=== PATIENT | female | born 1995 | race Caucasian/White ===

== ENCOUNTER 2020-03-12 17:09 | Emergency (ER) | payer OTHER ==
[2020-03-12] MEDS ORDERED: SODIUM CHLORIDE 0.9% 1,000 ML IV STA (18:23)
--- NOTE | 2020-03-12 18:33 | ED ---
General Adult HPI - General Chief complaint: Vaginal Bleeding Stated complaint: Approx 7 wks preg - vaginal bleeding Time Seen by Provider: 03/12/20 17:24 Source: patient, RN notes reviewed Mode of arrival: ambulatory Limitations: no limitations - History of Present Illness Initial comments: 24-year-old female currently 6-7 weeks with an LMP the last week of December presents to the emergency room for vaginal bleeding. Patient noticed this 2 hours ago. States when she wiped there was blood on the toilet paper. Patient reports she has a panty liner on [place] there is no blood on it. Patient denies any pain. Patient has not had an ultrasound for this . Patient does have her first [facility] appointment tomorrow.Patient has no other complaints at this time including shortness of breath, chest pain, abdominal pain, nausea or vomiting, headache, or visual changes. - Related Data Home Medications Medication Instructions Recorded Confirmed Metoprolol Succinate (ER) [Toprol 50 mg PO HS 03/12/20 03/12/20 Xl] Metoprolol Succinate [Toprol XL] 25 mg PO HS 03/12/20 03/12/20 Nitrofurantoin Monohyd/M-Cryst 100 mg PO BID 03/12/20 03/12/20 [Macrobid] Previous Rx's Medication Instructions Recorded Cephalexin [Keflex] 500 mg PO BID 10 Days #20 cap 03/12/20 Allergies Allergy/AdvReac Type Severity Reaction Status Date / Time No Known Allergies Allergy Verified 03/12/20 18:33 Review of Systems ROS Statement: Those systems with pertinent positive or pertinent negative responses have been documented in the HPI. ROS Other: All systems not noted in ROS Statement are negative. Past Medical History Additional Past Medical History / Comment(s): long QT syndrome History of Any Multi-Drug Resistant Organisms: None Reported Past Surgical History: AICD Past Psychological History: No Psychological Hx Reported Smoking Status: Never smoker Past Alcohol Use History: None Reported Past Drug Use History: Marijuana General Exam Limitations: no limitations General appearance: alert, in no apparent distress Head exam: Present: atraumatic, normocephalic, normal inspection Eye exam: Present: normal appearance, PERRL, EOMI. Absent: scleral icterus, conjunctival injection, periorbital swelling ENT exam: Present: normal exam, mucous membranes moist Neck exam: Present: normal inspection. Absent: tenderness, meningismus, lymphadenopathy Respiratory exam: Present: normal lung sounds bilaterally. Absent: respiratory distress, wheezes, rales, rhonchi, stridor Cardiovascular Exam: Present: regular rate, normal rhythm, normal heart sounds. Absent: systolic murmur, diastolic murmur, rubs, gallop, clicks GI/Abdominal exam: Present: soft, normal bowel sounds. Absent: distended, tenderness, guarding, rebound, rigid Course Vital Signs 03/12/20 17:12 Temperature 98.0 F Pulse Rate 86 Respiratory 18 Rate Blood Pressure 128/77 O2 Sat by Pulse 100 Oximetry Medical Decision Making - Medical Decision Making Vitals are stable. Patient denies any heavy bleeding. Physical exam unremarkable. CBC shows a stable hemoglobin of 14.1. CMP unremarkable. Patient does have evidence of a urinary tract infection will be treated accordingly. Ultrasound shows no evidence of a gestational sac or suspicious adnexal mass. HCG Quant is 7.5. Patient is O-, was given RhoGAM. I discussed the patient that at this time is to repeat her hCG in 2 days. At this time I cannot rule out early versus miscarriage versus ectopic . However I do not have a high suspicion for ectopic as patient has no abdominal pain whatsoever. She has an appointment with her [facility] PRESSMAN tomorrow and she will tell her stay in this emergency room. Patient denies any severe abdominal pain I recommend she return immediately to the emergency room. She'll return if she has any other worsening symptoms. - Lab Data Result diagrams: 03/12/20 18:14 03/12/20 18:14 Lab Results 03/12/20 03/12/20 03/12/20 Range/Units 18:14 18:14 18:14 WBC 7.3 (3.8-10.6) k/uL RBC 5.02 (3.80-5.40) m/uL Hgb 14.1 (11.4-16.0) gm/dL Hct 42.2 (34.0-46.0) % MCV 84.1 (80.0-100.0) fL MCH 28.1 (25.0-35.0) pg MCHC 33.4 (31.0-37.0) g/dL RDW 12.3 (11.5-15.5) % Plt Count 316 (150-450) k/uL MPV 6.7 Neutrophils % 67 % Lymphocytes % 24 % Monocytes % 5 % Eosinophils % 1 % Basophils % 0 % Neutrophils # 4.9 (1.3-7.7) k/uL Lymphocytes # 1.7 (1.0-4.8) k/uL Monocytes # 0.4 (0-1.0) k/uL Eosinophils # 0.1 (0-0.7) k/uL Basophils # 0.0 (0-0.2) k/uL Sodium (137-145) mmol/L Potassium (3.5-5.1) mmol/L Chloride (98-107) mmol/L Carbon Dioxide (22-30) mmol/L Anion Gap mmol/L BUN (7-17) mg/dL Creatinine (0.52-1.04) mg/dL Est GFR (CKD-EPI)AfAm (>60 ml/min/1.73 sqM) Est GFR (CKD-EPI)NonAf (>60 ml/min/1.73 sqM) Glucose (74-99) mg/dL Calcium (8.4-10.2) mg/dL Total Bilirubin (0.2-1.3) mg/dL AST (14-36) U/L ALT (4-34) U/L Alkaline Phosphatase (38-126) U/L Total Protein (6.3-8.2) g/dL Albumin (3.5-5.0) g/dL HCG, Quant mIU/mL Urine Color Yellow Urine Appearance Clear (Clear) Urine pH 5.5 (5.0-8.0) Ur Specific [place] 1.028 (1.001-1.035) Urine Protein Trace H (Negative) Urine Glucose (UA) Negative (Negative) Urine Ketones Negative (Negative) Urine Blood Moderate H (Negative) Urine Nitrite Negative (Negative) Urine Bilirubin Negative (Negative) Urine Urobilinogen <2.0 (<2.0) mg/dL Ur Leukocyte Esterase Moderate H (Negative) Urine RBC 4 (0-5) /hpf Urine WBC 21 H (0-5) /hpf Ur Squamous Epith Cells 1 (0-4) /hpf Urine Mucus Rare H (None) /hpf Urine HCG, Qual Detected (Not Detectd) Blood Type Blood Type Recheck Bld Type Recheck Status Antibody Screen 11/12/20 11/12/20 Range/Units 18:14 18:15 WBC (3.8-10.6) k/uL RBC (3.80-5.40) m/uL Hgb (11.4-16.0) gm/dL Hct (34.0-46.0) % MCV (80.0-100.0) fL MCH (25.0-35.0) pg MCHC (31.0-37.0) g/dL RDW (11.5-15.5) % Plt Count (150-450) k/uL MPV Neutrophils % % Lymphocytes % % Monocytes % % Eosinophils % % Basophils % % Neutrophils # (1.3-7.7) k/uL Lymphocytes # (1.0-4.8) k/uL Monocytes # (0-1.0) k/uL Eosinophils # (0-0.7) k/uL Basophils # (0-0.2) k/uL Sodium 139 (137-145) mmol/L Potassium 3.9 (3.5-5.1) mmol/L Chloride 105 (98-107) mmol/L Carbon Dioxide 26 (22-30) mmol/L Anion Gap 8 mmol/L BUN 12 (7-17) mg/dL Creatinine 0.77 (0.52-1.04) mg/dL Est GFR (CKD-EPI)AfAm >90 (>60 ml/min/1.73 sqM) Est GFR (CKD-EPI)NonAf >90 (>60 ml/min/1.73 sqM) Glucose 85 (74-99) mg/dL Calcium 9.6 (8.4-10.2) mg/dL Total Bilirubin 1.2 (0.2-1.3) mg/dL AST 28 (14-36) U/L ALT 18 (4-34) U/L Alkaline Phosphatase 57 (38-126) U/L Total Protein 7.8 (6.3-8.2) g/dL Albumin 4.9 (3.5-5.0) g/dL HCG, Quant 7.5 mIU/mL Urine Color Urine Appearance (Clear) Urine pH (5.0-8.0) Ur Specific [place] (1.001-1.035) Urine Protein (Negative) Urine Glucose (UA) (Negative) Urine Ketones (Negative) Urine Blood (Negative) Urine Nitrite (Negative) Urine Bilirubin (Negative) Urine Urobilinogen (<2.0) mg/dL Ur Leukocyte Esterase (Negative) Urine RBC (0-5) /hpf Urine WBC (0-5) /hpf Ur Squamous Epith Cells (0-4) /hpf Urine Mucus (None) /hpf Urine HCG, Qual (Not Detectd) Blood Type O Negative Blood Type Recheck O Neg Bld Type Recheck Status No Antibody Screen NEGATIVE Disposition Clinical Impression: UTI (urinary tract infection), Vaginal bleeding, Elevated serum hCG Disposition: HOME SELF-CARE Condition: Good Instructions (If sedation given, give patient instructions): Threatened Miscarriage (ED) Additional Instructions: Please take antibiotic as directed for urinary tract infection. Please follow up with her [facility] PRESS[facility] at your appointment tomorrow. Discussed that your ultrasound did not show evidence of gestational sac and that your hCG was 7.5. Her also given RhoGAM. If you have any worsening symptoms such as severe abdominal pain or worsening bleeding return to the emergency department. Prescriptions: Cephalexin [Keflex] 500 mg PO BID 10 Days #20 cap Is patient prescribed a controlled substance at d/c from ED?: No Referrals: Alan Stallings MD [Primary Care Provider] - 1-2 days Time of Disposition: 21:00
[2020-03-12 18:38] LABS: Basophils % (A) 0 %; Eosinophils # (A) 0.1 k/uL (0-0.7); Eosinophils % (A) 1 %; HCT 42.2 % (34.0-46.0); HGB 14.1 gm/dL (11.4-16.0); Lymphocytes # (A) 1.7 k/uL (1.0-4.8); Lymphocytes % (A) 24 %; MCH 28.1 pg (25.0-35.0); MCHC 33.4 g/dL (31.0-37.0); MCV 84.1 fL (80.0-100.0); Mean Platelet Volume 6.7; Monocytes # (A) 0.4 k/uL (0-1.0); Monocytes % (A) 5 %; Neutrophils # (A) 4.9 k/uL (1.3-7.7); Neutrophils % (A) 67 %; Platelet Count 316 k/uL (150-450); RBC 5.02 m/uL (3.80-5.40); RDW 12.3 % (11.5-15.5); WBC 7.3 k/uL (3.8-10.6)
[2020-03-12 18:46] LABS: ALT 18 U/L (4-34); AST 28 U/L (14-36); African American GFR (CKD) >90 (>60 ml/min/1.73 sqM); Albumin 4.9 g/dL (3.5-5.0); Alkaline Phosphatase 57 U/L (38-126); Anion Gap 8 mmol/L; Blood Urea Nitrogen 12 mg/dL (7-17); Calcium 9.6 mg/dL (8.4-10.2); Carbon Dioxide 26 mmol/L (22-30); Chloride 105 mmol/L (98-107); Glucose 85 mg/dL (74-99); Non-African American GFR(CKD) >90 (>60 ml/min/1.73 sqM); Potassium 3.9 mmol/L (3.5-5.1); Sodium 139 mmol/L (137-145); Total Bilirubin 1.2 mg/dL (0.2-1.3); Total Protein 7.8 g/dL (6.3-8.2)
[2020-03-12] MEDS ORDERED: Rhogam IMMUNE GLOBULIN 1,500 UNIT/1 ML IM STA (18:46)
[2020-03-12 18:50] LABS: Appearance,Urine Clear (Clear); Bilirubin,Urine Negative (Negative); Blood,Urine Moderate (Negative); Color,Urine Yellow; Glucose,Urine (UA) Negative (Negative); Ketones,Urine Negative (Negative); Leukocyte Esterase,Urine Moderate (Negative); Mucus,Urine Rare /hpf; Nitrite,Urine Negative (Negative); PH, Urine 5.5 (5.0-8.0); Protein,Urine Trace (Negative); RBC,Urine 4 /hpf (0-5); Specific Gravity,Urine 1.028 (1.001-1.035); Squamous Epithelial Cell,Urine 1 /hpf (0-4); Urobilinogen,Urine <2.0 mg/dL (<2.0); WBC,Urine 21 /hpf (0-5)
[2020-03-12 19:03] LABS: HCG,Quantitative Serum 7.5 mIU/mL
--- NOTE | 2020-03-12 20:23 | US ---
EXAMINATION TYPE: Transabdominal DATE OF EXAM: 03/12/2020 8:07 PM COMPARISON: This is first US for this . CLINICAL HISTORY: bleeding. Bleeding x 4.5 hours. Hx 2 miscarriages. LMP unknown. . EXAM PERFORMED: Transvaginal (TV) and Transabdominal (TA) EXAM MEASUREMENTS: GESTATIONAL AGE / DATING Physician Established: Not yet established Dates by LMP: Unknown Dates by First Scan: This is first scan (Dates by Current Scan for: No IUP seen at this time. MATERNAL ANATOMY Uterus: 7.5 x 5.2 x 4.3 cm. Anteverted. Subcentimeter anechoic areas in cervix. Right Ovary: 3.2 x 2.5 x 2.1 cm. Area of mixed echogenicity and peripheral vascularity seen measuring : 1.8 x 1.4 x 1.3 cm. Left Ovary: 3.0 x 2.4 x 1.8 cm. Post CDS / Adnexa: Fluid seen in CDS Presence of free fluid: Fluid in CDS measurin.8 x 1.4 x 0.2 cm. Presence of corpus luteal cyst: Possible within right ovary as mentioned above measurin.8 x 1.4 x 1.3 cm. GESTATION / SURVEY IUP: No IUP seen at this time. Date of LMP: Unknown Beta HcG (if available): Detected IMPRESSION: No evidence of a gestational sac. No suspicious adnexal mass.
[2020-03-12] MEDS ORDERED: CEPHALEXIN 500MG STARTER PACK 4 CAP BTL PO STA (20:57)
[2020-03-12 21:20] VITALS: BP 122/68; PULSE 68; RESP 16; TEMP 97
== END 2020-03-12 21:20 | disposition home or self-care (01) ==
LOC: EC 17:09
DX: N39.0 Urinary tract infection, site not specified (principal); N93.9 Abnormal uterine and vaginal bleeding, unspecified; E34.9 Endocrine disorder, unspecified; Z79.899 Other long term (current) drug therapy; Z95.810 Presence of automatic (implantable) cardiac defibrillator
CPT/HCPCS: 36415; 86900; 86901; 80053; 85025; 86850; 81001; 81025; 84702; 87086; 76801; 76817; 99284; 96360; 96372; J2791

== ENCOUNTER → 2020-03-14 | Outpatient (CLI) | payer OTHER | END | disposition home or self-care (01) | LOC: LABMAIN 14:27 | PROVIDERS: ATTEND Family Medicine | DX: Z53.9 Procedure and treatment not carried out, unspecified reason (principal) ==

== ENCOUNTER 2020-05-05 11:47 | Emergency (ER) | payer OTHER ==
[2020-05-05 11:54] VITALS: BP 121/80; PULSE 85; RESP 18; TEMP 98.7
[2020-05-05] MEDS ORDERED: SODIUM CHLORIDE 0.9% 1,000 ML IV STA (12:24)
[2020-05-05 12:58] LABS: Basophils % (A) 1 %; Eosinophils # (A) 0.1 k/uL (0-0.7); Eosinophils % (A) 1 %; HCT 39.7 % (34.0-46.0); HGB 14.1 gm/dL (11.4-16.0); Lymphocytes # (A) 1.4 k/uL (1.0-4.8); Lymphocytes % (A) 20 %; MCH 29.6 pg (25.0-35.0); MCHC 35.5 g/dL (31.0-37.0); MCV 83.4 fL (80.0-100.0); Mean Platelet Volume 6.8; Monocytes # (A) 0.3 k/uL (0-1.0); Monocytes % (A) 5 %; Neutrophils # (A) 4.9 k/uL (1.3-7.7); Neutrophils % (A) 72 %; Platelet Count 259 k/uL (150-450); RBC 4.76 m/uL (3.80-5.40); WBC 6.7 k/uL (3.8-10.6)
[2020-05-05] MEDS ORDERED: TRIMETHOBENZAMIDE 100 MG/ML 2 ML VIAL IM STA (13:03)
[2020-05-05 13:10] LABS: ALT 17 U/L (4-34); AST 20 U/L (14-36); African American GFR (CKD) >90 (>60 ml/min/1.73 sqM); Albumin 4.8 g/dL (3.5-5.0); Alkaline Phosphatase 37 U/L (38-126); Anion Gap 10 mmol/L; Blood Urea Nitrogen 9 mg/dL (7-17); Calcium 9.7 mg/dL (8.4-10.2); Carbon Dioxide 24 mmol/L (22-30); Chloride 106 mmol/L (98-107); Glucose 89 mg/dL (74-99); Lipase 55 U/L (23-300); Non-African American GFR(CKD) >90 (>60 ml/min/1.73 sqM); Potassium 4.1 mmol/L (3.5-5.1); Sodium 140 mmol/L (137-145); Total Bilirubin 1.7 mg/dL (0.2-1.3); Total Protein 7.5 g/dL (6.3-8.2)
[2020-05-05 13:22] LABS: Appearance,Urine Clear (Clear); Bacteria,Urine Rare /hpf; Bilirubin,Urine Negative (Negative); Blood,Urine Trace (Negative); Color,Urine Yellow; Glucose,Urine (UA) Negative (Negative); Ketones,Urine Negative (Negative); Leukocyte Esterase,Urine Negative (Negative); Mucus,Urine Rare /hpf; Nitrite,Urine Negative (Negative); PH, Urine 6.5 (5.0-8.0); Protein,Urine Negative (Negative); RBC,Urine 14 /hpf (0-5); Urobilinogen,Urine <2.0 mg/dL (<2.0); WBC,Urine 1 /hpf (0-5)
[2020-05-05 13:51] LABS: HCG,Quantitative Serum 45653.8 mIU/mL
--- NOTE | 2020-05-05 14:08 | ED ---
General Adult HPI - General Chief complaint: Nausea/Vomiting/Diarrhea Stated complaint: approx 6wks preg, vomiting Source: patient Mode of arrival: ambulatory Limitations: no limitations - History of Present Illness Initial comments: Patient is a 24-year-old female past medical history of long QT syndrome who presents to the emergency department with reported nausea and vomiting. Patient is currently . States that she took a test on April 22 it was positive. She did have a miscarriage last month and so was unsure if this was a new versus residual from her old . She normally sees Dr. Harrington however reports that she has not followed up with him to ensure that her beta Quant went back down to 0. She did have laboratory studies obtained last week which demonstrated that her beta Quant was 4000. Dr. Harrington stated that he no longer wanted to see the patient as she does have a history of long QT and thinks the patient is too high risk. Believe she needs to get a high risk [facility] doctor. Patient has had some nausea and vomiting for the past 3 days. States she has been unable to hold down any water. She does not have any medi cations at home for her nausea. She admits to mild right-sided pelvic pain. No vaginal bleeding or discharge. Denies fevers or chills. No concern for sexually options. No other alleviating, the dictating or modifying factors - Related Data Home Medications Medication Instructions Recorded Confirmed Metoprolol Succinate (ER) [Toprol 50 mg PO HS 03/12/20 05/05/20 Xl] Metoprolol Succinate [Toprol XL] 25 mg PO HS 03/12/20 05/05/20 Previous Rx's Medication Instructions Recorded [id number]-[id number] Acid 1 each PO DAILY #30 cap 05/05/20 [-U Capsule] Pyridoxine HCl (Vitamin B6) 50 mg PO HS #14 tablet 05/05/20 [Pyridoxine HCl] Trimethobenzamide [Tigan] 300 mg PO TID PRN #20 capsule 05/05/20 diphenhydrAMINE [Benadryl] 25 mg PO TID PRN #14 capsule 05/05/20 Allergies Allergy/AdvReac Type Severity Reaction Status Date / Time No Known Allergies Allergy Verified 05/05/20 12:56 Review of Systems ROS Statement: Those systems with pertinent positive or pertinent negative responses have been documented in the HPI. ROS Other: All systems not noted in ROS Statement are negative. Past Medical History Additional Past Medical History / Comment(s): long QT syndrome History of Any Multi-Drug Resistant Organisms: None Reported Past Surgical History: AICD Past Psychological History: No Psychological Hx Reported Smoking Status: Never smoker Past Alcohol Use History: None Reported Past Drug Use History: Marijuana General Exam Limitations: no limitations Course Vital Signs 05/05/20 11:50 Temperature 98.7 F Pulse Rate 85 Respiratory 18 Rate Blood Pressure 121/80 O2 Sat by Pulse 99 Oximetry EKG Findings - EKG Comments: EKG Findings:: EKG demonstrates nsr with rate of 70. ID interval 136. QRS 86. QTC of 438. No prolonged QT noted. No acute ST segment elevations Medical Decision Making - Medical Decision Making Upon arrival patient was placed into room 26. A thorough history and physical exam was performed. EKG is performed because the patient's cardiac history. P eripheral IV is established. Patient was given 2 L bolus of normal saline. She is also given Tigan for nausea. Laboratory studies were conducted and the patient had an ultrasound performed. Laboratory studies demonstrate a hCG of 45, 653.8. Ultrasound demonstrates an intrauterine dating 6 weeks, 2 days with a heart rate of 121. Results are discussed the patient and reevaluation demonstrates the patient does have improvement in her nausea. This time she'll be discharged home. I did instruct that she should call [facility] or [facility] to schedule an appointment to see if she may be part of their practice. Patient will be given a perception for vitamin, Tigan and V6. Patient was also given a prescription for Benadryl. She is to take Benadryl as directed. She is able to obtain a Tigan she should substitute this for the Benadryl. The patient has any new or worsening symptoms she should return to the emergency room. Patient was discharged home in stable condition - Lab Data Result diagrams: 05/05/20 12:41 05/05/20 12:41 Lab Results 05/05/20 05/05/20 05/05/20 Range/Units 12:41 12:41 12:41 WBC 6.7 (3.8-10.6) k/uL RBC 4.76 (3.80-5.40) m/uL Hgb 14.1 (11.4-16.0) gm/dL Hct 39.7 (34.0-46.0) % MCV 83.4 (80.0-100.0) fL MCH 29.6 (25.0-35.0) pg MCHC 35.5 (31.0-37.0) g/dL RDW 12.0 (11.5-15.5) % Plt Count 259 (150-450) k/uL MPV 6.8 Neutrophils % 72 % Lymphocytes % 20 % Monocytes % 5 % Eosinophils % 1 % Basophils % 1 % Neutrophils # 4.9 (1.3-7.7) k/uL Lymphocytes # 1.4 (1.0-4.8) k/uL Monocytes # 0.3 (0-1.0) k/uL Eosinophils # 0.1 (0-0.7) k/uL Basophils # 0.0 (0-0.2) k/uL Sodium 140 (137-145) mmol/L Potassium 4.1 (3.5-5.1) mmol/L Chloride 106 (98-107) mmol/L Carbon Dioxide 24 (22-30) mmol/L Anion Gap 10 mmol/L BUN 9 (7-17) mg/dL Creatinine 0.64 (0.52-1.04) mg/dL Est GFR (CKD-EPI)AfAm >90 (>60 ml/min/1.73 sqM) Est GFR (CKD-EPI)NonAf >90 (>60 ml/min/1.73 sqM) Glucose 89 (74-99) mg/dL Calcium 9.7 (8.4-10.2) mg/dL Total Bilirubin 1.7 H (0.2-1.3) mg/dL AST 20 (14-36) U/L ALT 17 (4-34) U/L Alkaline Phosphatase 37 L (38-126) U/L Total Protein 7.5 (6.3-8.2) g/dL Albumin 4.8 (3.5-5.0) g/dL Lipase 55 (23-300) U/L HCG, Quant 05697.8 mIU/mL Urine Color Yellow Urine Appearance Clear (Clear) Urine pH 6.5 (5.0-8.0) Ur Specific [place] 1.020 (1.001-1.035) Urine Protein Negative (Negative) Urine Glucose (UA) Negative (Negative) Urine Ketones Negative (Negative) Urine Blood Trace H (Negative) Urine Nitrite Negative (Negative) Urine Bilirubin Negative (Negative) Urine Urobilinogen <2.0 (<2.0) mg/dL Ur Leukocyte Esterase Negative (Negative) Urine RBC 14 H (0-5) /hpf Urine WBC 1 (0-5) /hpf Urine Bacteria Rare H (None) /hpf Urine Mucus Rare H (None) /hpf Disposition Clinical Impression: First trimester , Nausea and vomiting, Prolonged QT interval Disposition: HOME SELF-CARE Condition: Stable Instructions (If sedation given, give patient instructions): Nausea and Vomiting in (ED) Additional Instructions: Follow up with the FURNITURE REPRODUCER for further care within 1-2 weeks. The OBGYNs in [place] are [facility] and [facility]. Call to make an appointment. Take the Benadryl 3 times daily as needed for nausea. If you're able to fill the Tigan, please start taking this medication and stop benadryl. Take the B6 at night. Return for any new or worsening symptoms . Prescriptions: diphenhydrAMINE [Benadryl] 25 mg PO TID PRN #14 capsule PRN Reason: Nausea Vjl-Rgil-Qbprm Acid [-U Capsule] 1 each PO DAILY #30 cap Pyridoxine HCl (Vitamin B6) [Pyridoxine HCl] 50 mg PO HS #14 tablet Trimethobenzamide [Tigan] 300 mg PO TID PRN #20 capsule PRN Reason: Nausea Is patient prescribed a controlled substance at d/c from ED?: No Referrals: Angel Becker MD [Primary Care Provider] - 1-2 days Time of Disposition: 15:48
--- NOTE | 2020-05-05 14:41 | US ---
EXAMINATION TYPE: Transabdominal DATE OF EXAM: 05/05/2020 2:01 PM COMPARISON: NONE CLINICAL HISTORY: , pain, vomiting. EXAM PERFORMED: Transabdominal (TA) EXAM MEASUREMENTS: GESTATIONAL AGE / DATING Physician Established: Not yet established Dates by LMP: LMP November Dates by First Scan: No previous this is first scan Dates by Current Scan for: (6 weeks/2 days) EDC: 12-27-20 MATERNAL ANATOMY Uterus: 8.89 x 5.2 x 6.1cm Right Ovary: 2.6 x 2.7 x 2.5cm Left Ovary: 3.1 x 2.5 x 2.1cm Post CDS / Adnexa: wnl Presence of free fluid: no GESTATION / SURVEY CRL: 0.4cm (6 weeks/2 days) Yolk Sac (normal less than 6mm): 3mm Heart Rate: 121 bpm IUP: Viable IUP Date of LMP: March Beta HcG (if available): 89310. IMPRESSION: 1. Single intrauterine gestation estimated at 6 weeks 2 days gestation based on crown-rump length. Ca rdiac activity measures 121 bpm.
== END 2020-05-05 16:03 | disposition home or self-care (01) ==
LOC: EC 11:47
DX: O21.9 Vomiting of pregnancy, unspecified (principal); O26.891 Other specified pregnancy related conditions, first trimester; O99.411 Diseases of the circulatory system complicating pregnancy, first trimester; I45.81 Long QT syndrome; Z95.810 Presence of automatic (implantable) cardiac defibrillator; Z3A.01 Less than 8 weeks gestation of pregnancy
CPT/HCPCS: 36415; 93005; 80053; 83690; 85025; 81001; 84702; 76801; 99284; 96360; 96361 ×2; 96372; J3250

== ENCOUNTER 2020-07-25 20:32 | Emergency (ER) | payer OTHER ==
[2020-07-25 20:36] VITALS: RESP 18
--- NOTE | 2020-07-25 22:00 | XR ---
EXAMINATION TYPE: XR chest 2V DATE OF EXAM: 07/25/2020 COMPARISON: 07/16/2011. HISTORY: Chest pain. TECHNIQUE: Frontal and lateral views of the chest are obtained. FINDINGS: There is no focal air space opacity, pleural effusion, or pneumothorax seen. The cardiac silhouette size is within normal limits. The osseous structures are intact. Left AICD seen. IMPRESSION: No acute cardiopulmonary process.
--- NOTE | 2020-07-25 22:08 | ED ---
General Adult HPI - General Chief complaint: Chest Pain Stated complaint: Chest Pain, 18wks preg Source: patient Mode of arrival: wheelchair Limitations: no limitations - History of Present Illness Initial comments: 24-year-old female currently 18 weeks with a past medical history of AICD for prolonged QT presents to the emergency room for a chief complaint of chest pain and pressure. Patient states yesterday she started to feel a pressure in her chest. States also feels like a squeezing pressure. Denies any radiating pain to arms, neck, jaw or back. Denies pain worsening with exertion. Rates the pain 07/08. Patient reports that today she developed a dry cough with this pressure. Denies hemoptysis Does not feel short of breath. She has not had any fevers that she is aware of. Patient states [facility] [employer] [facility] office recommended that she come into the ER for this. Patient denies any pain or swelling of her legs.Patient has no other complaints at this time including shortness of breath, abdominal pain, nausea or vomiting, headache, or visual changes. - Related Data Home Medications Medication Instructions Recorded Confirmed Metoprolol Succinate (ER) [Toprol 50 mg PO HS 03/12/20 07/25/20 Xl] Cholecalciferol [Vitamin D3 (25 50 mcg PO HS 07/25/20 07/25/20 Mcg = 1000 Iu)] Doxylamine Succinate [Unisom] 25 mg PO HS PRN 07/25/20 07/25/20 Famotidine [Pepcid] 20 mg PO BID 07/25/20 07/25/20 Folic Acid 0.4 mg PO DAILY 07/25/20 07/25/20 Vitamin B-6 25mg 25 mg PO BID 07/25/20 07/25/20 Allergies Allergy/AdvReac Type Severity Reaction Status Date / Time No Known Allergies Allergy Verified 07/25/20 21:47 Review of Systems ROS Statement: Those systems with pertinent positive or pertinent negative responses have been documented in the HPI. ROS Other: All systems not noted in ROS Statement are negative. Past Medical History Additional Past Medical History / Comment(s): long QT syndrome History of Any Multi-Drug Resistant Organisms: None Reported Past Surgical History: AICD Past Psychological History: No Psychological Hx Reported Smoking Status: Never smoker Past Alcohol Use History: None Reported Past Drug Use History: Marijuana General Exam Limitations: no limitations General appearance: alert, in no apparent distress Head exam: Present: atraumatic, normocephalic, normal inspection Eye exam: Present: normal appearance, PERRL, EOMI. Absent: scleral icterus, conjunctival injection, periorbital swelling ENT exam: Present: normal exam, mucous membranes moist Neck exam: Present: normal inspection. Absent: tenderness, meningismus, lymphadenopathy Respiratory exam: Present: normal lung sounds bilaterally. Absent: respiratory distress, wheezes, rales, rhonchi, stridor Cardiovascular Exam: Present: regular rate, normal rhythm, normal heart sounds. Absent: systolic murmur, diastolic murmur, rubs, gallop, clicks GI/Abdominal exam: Present: soft, normal bowel sounds, other (gravid). Absent: distended, tenderness, guarding, rebound, rigid Extremities exam: Absent: calf tenderness (No calf tenderness or swelling in the bilateral lower extremities.) Course Vital Signs 07/25/20 07/25/20 20:33 20:50 Temperature 98.3 F Pulse Rate 95 92 Respiratory 18 18 Rate Blood Pressure 143/76 119/74 O2 Sat by Pulse 100 100 Oximetry EKG Findings - EKG Comments: EKG Findings:: Normal sinus rhythm, ventricular rate 84, MA interval 140, QTC 463 Medical Decision Making - Medical Decision Making 24 year old female presents to the emergency department for a chief complaint of chest pressure and cough. Vitals are stable. Patient is 100% on room air. Normal heart rate. EKG was obtained which showed a normal sinus rhythm. Ventricular rate 84. QTc is 463. Coronary was obtained which was negative. Chest x-ray showed no acute process. Ultrasound of both legs was obtained which showed no evidence of DVT. At this time I discussed risks versus benefits of undergoing CAT scan to completely rule out pulmonary embolism. Patient does not wish to do this at this time. States her pain is minimal and thinks is related to her cough. Patient is agreeable to returning if her symptoms worsen or she becomes short of breath. She will otherwise follow up with primary care. She will take Tylenol for pain and any fever or she develops. I discussed this case with attending Dr. Reagan who agrees with this assessment and treatment plan. - Lab Data Lab Results 07/25/20 Range/Units 21:06 Coronavirus (PCR) Not Detected (Not Detectd) Disposition Clinical Impression: Cough, Chest pain Disposition: HOME SELF-CARE Condition: Good Instructions (If sedation given, give patient instructions): Chest Pain (ED) Additional Instructions: Take Tylenol for pain or fevers. Please follow-up with your doctor. If you're having worsening chest pain or shortness of breath return to the emergency room for a CAT scan. Is patient prescribed a controlled substance at d/c from ED?: No Referrals: Angel Becker MD [Primary Care Provider] - 1-2 days Time of Disposition: 22:37
[2020-07-25] MEDS ORDERED: ACETAMINOPHEN TAB 500 MG TAB PO STA (22:22)
--- NOTE | 2020-07-25 22:23 | US ---
EXAMINATION TYPE: US venous doppler duplex LE DATE OF EXAM: 07/25/2020 10:15 PM COMPARISON: NONE CLINICAL HISTORY: ro DVT. Patient is 18 weeks and complains of chest pain. SIDE PERFORMED: Bilateral TECHNIQUE: The lower extremity deep venous system is examined utilizing real time linear array sonog coleen with graded compression, doppler sonography and color-flow sonography. VESSELS IMAGED: Common Femoral Vein Deep Femoral Vein Greater Saphenous Vein * Femoral Vein Popliteal Vein Small Saphenous Vein * Proximal Calf Veins (* superficial vessels) Right Leg: Negative for DVT Left Leg: Negative for DVT IMPRESSION: No evidence of deep vein thrombosis in both legs.
[2020-07-25 22:55] VITALS: BP 118/60; PULSE 75; TEMP 98.7
== END 2020-07-25 22:55 | disposition home or self-care (01) ==
LOC: EC 20:32
DX: O26.892 Other specified pregnancy related conditions, second trimester (principal); R07.9 Chest pain, unspecified; R05 Cough; Z20.822 Contact with and (suspected) exposure to COVID-19; Z3A.18 18 weeks gestation of pregnancy
CPT/HCPCS: 71046; 87635; 93005; 93970; 99285

== ENCOUNTER 2020-09-06 10:50 | Outpatient (CLI) | payer OTHER ==
[2020-09-06 11:46] LABS: Appearance,Urine Clear (Clear); Bacteria,Urine Rare /hpf; Bilirubin,Urine Negative (Negative); Blood,Urine Moderate (Negative); Color,Urine Yellow; Glucose,Urine (UA) Negative (Negative); Ketones,Urine Negative (Negative); Leukocyte Esterase,Urine Large (Negative); Mucus,Urine Rare /hpf; Nitrite,Urine Negative (Negative); PH, Urine 6.5 (5.0-8.0); Protein,Urine Negative (Negative); RBC,Urine 35 /hpf (0-5); Specific Gravity,Urine 1.015 (1.001-1.035); Squamous Epithelial Cell,Urine 4 /hpf (0-4); Urobilinogen,Urine <2.0 mg/dL (<2.0); WBC,Urine 28 /hpf (0-5)
[2020-09-06 12:35] VITALS: BP 115/60; PULSE 76; RESP 16; TEMP 97.7
--- NOTE | 2020-09-22 08:10 | P.MSEPDOC ---
Presenting Problems - Arrival Data Date of Arrival on Unit: 09/06/20 Time of Arrival on Unit: 10:50 Mode of Transport: Wheelchair - Complaint OB-Reason for Admission/Chief Complaint: Other Comment: pt arrived c/o frequency with urination and lower abd cramping near pubic area Medical History - Information : 6 Para: 3 Term: 3 : 0 Abortions: Spontaneous or Elective: 2 Number of Living Children: 3 - Gestational Age Gestational Age by KWADWO (wks/days): 24 Weeks and 0 Days Review of Systems - Review of Systems Constitutional: No problems Breast: No problems ENT: No problems Cardiovascular: No problems Respiratory: No problems Gastrointestinal: No problems Genitourinary: No problems Musculoskeletal: No problems Neurological: No problems Skin: No problems Vital Signs - Temperature Temperature: 97.7 F Temperature Source: Oral - Pulse Right Brachial Pulse Rate: 76 Pulse Assessment Method: Automatic Cuff - Respirations Respiratory Rate: 16 Oxygen Delivery Method: Room Air O2 Sat by Pulse Oximetry: 99 - Blood Pressure Right Arm Blood Pressure: 115/60 Blood Pressure Mean: 78 Blood Pressure Source: Automatic Cuff Medical Screen Scoring (Pre) - Cervical Exam Dilation: Exam Deferred Effacement: Exam Deferred - Uterine Contractions Frequency: N/A Duration: N/A Intensity: N/A - Maternal Vital Signs Maternal Temperature: N/A Maternal Blood Pressure: N/A Signs of Preeclampsia: N/A Maternal Respirations: N/A - Maternal Trauma Maternal Trauma: N/A - Assessment - Baby A Baseline FHR: 140 Position: N/A - Total Score - Baby A Total Score - Baby A: 0 - Total Score - Baby B Total Score - Baby B: 0 - Total Score - Baby C Total Score - Baby C: 0 - Level of Risk - Baby A Level of Risk - Baby A: Low (0-5) - Level of Risk - Baby B Level of Risk - Baby B: Low (0-5) - Level of Risk - Baby C Level of Risk - Baby C: Low (0-5) Physician Notification (Pre) - Physician Notified Physician Notified Date: 09/06/20 Physician Notified Time: 11:50 New Order Received: Yes - Notification Comment Comment: clean catch u/a obtained and results given to dr bryant with dr bryant ging to call in prescription at [address] pt may be discharged to home with instructions Disposition - Disposition OB Disposition: Discharge to home Discharge Date: 09/06/20 Discharge Time: 12:08 I agree with the RN Medical Screening Exam: Yes Case reviewed; plan agreed upon as documented in EMR&OBIX.: Yes Diagnosis: CRAMP AND SPASM
== END 2020-09-06 12:08 | disposition home or self-care (01) ==
LOC: FBPOP 10:50
PROVIDERS: ATTEND Obstetrics & Gynecology
DX: O26.892 Other specified pregnancy related conditions, second trimester (principal)
CPT/HCPCS: 81001; 87086; G0463; 99213

== ENCOUNTER 2020-09-17 20:02 | Observation (INO) | payer OTHER ==
[2020-09-17] MEDS ORDERED: HYDROmorphone 0.5 MG/0.5 ML SYRINGE IVP STA ×2 (21:37→23:41)
[2020-09-17] MEDS ORDERED: SODIUM CHLORIDE 0.9% 2,000 ML IV STA (21:37)
[2020-09-17 22:57] LABS: Basophils % (A) 0 %; Eosinophils % (A) 0 %; HCT 32.6 % (34.0-46.0); HGB 11.7 gm/dL (11.4-16.0); Lymphocytes % (A) 7 %; MCH 31.3 pg (25.0-35.0); MCHC 36.1 g/dL (31.0-37.0); MCV 86.8 fL (80.0-100.0); Mean Platelet Volume 7.4; Monocytes # (A) 0.5 k/uL (0-1.0); Monocytes % (A) 3 %; Neutrophils # (A) 12.6 k/uL (1.3-7.7); Neutrophils % (A) 89 %; Platelet Count 175 k/uL (150-450); RBC 3.75 m/uL (3.80-5.40); RDW 12.7 % (11.5-15.5); WBC 14.2 k/uL (3.8-10.6)
[2020-09-17 23:15] LABS: ALT <6 U/L (4-34); AST 17 U/L (14-36); African American GFR (CKD) >90 (>60 ml/min/1.73 sqM); Albumin 3.6 g/dL (3.5-5.0); Alkaline Phosphatase 49 U/L (38-126); Amylase 95 U/L (30-110); Anion Gap 7 mmol/L; Blood Urea Nitrogen 8 mg/dL (7-17); Calcium 8.8 mg/dL (8.4-10.2); Carbon Dioxide 22 mmol/L (22-30); Chloride 107 mmol/L (98-107); Glucose 94 mg/dL (74-99); Lipase 79 U/L (23-300); Non-African American GFR(CKD) >90 (>60 ml/min/1.73 sqM); Potassium 3.9 mmol/L (3.5-5.1); Sodium 136 mmol/L (137-145); Total Bilirubin 0.2 mg/dL (0.2-1.3)
[2020-09-17 23:16] LABS: Appearance,Urine Cloudy (Clear); Bacteria,Urine Rare /hpf; Bilirubin,Urine Negative (Negative); Blood,Urine Moderate (Negative); Calcium Oxalate Crystals,Urine Few /hpf; Color,Urine Yellow; Glucose,Urine (UA) Negative (Negative); Ketones,Urine Negative (Negative); Leukocyte Esterase,Urine Large (Negative); Mucus,Urine Rare /hpf; Nitrite,Urine Negative (Negative); PH, Urine 5.5 (5.0-8.0); Protein,Urine 1+ (Negative); RBC,Urine 68 /hpf (0-5); Specific Gravity,Urine 1.027 (1.001-1.035); Squamous Epithelial Cell,Urine 31 /hpf (0-4); Urobilinogen,Urine <2.0 mg/dL (<2.0); WBC,Urine 109 /hpf (0-5)
--- NOTE | 2020-09-17 23:23 | ED ---
General Adult HPI - General Chief complaint: Back Pain/Injury Stated complaint: Kidney stones,25 weeks Time Seen by Provider: 09/17/20 21:22 Source: patient, RN notes reviewed Mode of arrival: ambulatory Limitations: no limitations - History of Present Illness Initial comments: 24-year-old female with a long QT syndrome currently 25 weeks presents for left flank pain. Patient reports that she has been having slight left flank pain since last week. Her doctor diagnosed her with a kidney stone. She states today at work it worsened significantly. Patient states she tried to take Tylenol but it did not help. States she is nauseous and vomiting because of the pain.Patient has no other complaints at this time including shortness of breath, chest pain, abdominal pain, headache, or visual changes. - Related Data Home Medications Medication Instructions Recorded Confirmed Metoprolol Succinate (ER) [Toprol 50 mg PO HS 03/12/20 09/06/20 Xl] Cholecalciferol [Vitamin D3 (25 50 mcg PO HS 07/25/20 09/06/20 Mcg = 1000 Iu)] Doxylamine Succinate [Unisom] 25 mg PO HS PRN 07/25/20 09/06/20 Famotidine [Pepcid] 20 mg PO BID 07/25/20 09/06/20 Folic Acid 0.4 mg PO DAILY 07/25/20 09/06/20 Vitamin B-6 25mg 25 mg PO BID 07/25/20 09/06/20 Previous Rx's Medication Instructions Recorded Nitrofurantoin Monohyd/M-Cryst 100 mg PO Q12HR #14 cap 09/06/20 [Macrobid] Allergies Allergy/AdvReac Type Severity Reaction Status Date / Time No Known Allergies Allergy Verified 09/17/20 20:11 Review of Systems ROS Statement: Those systems with pertinent positive or pertinent negative responses have been documented in the HPI. ROS Other: All systems not noted in ROS Statement are negative. Past Medical History Past Medical History: No Reported History Additional Past Medical History / Comment(s): long QT syndrome History of Any Multi-Drug Resistant Organisms: None Reported Past Surgical History: AICD Past Psychological History: No Psychological Hx Reported Smoking Status: Never smoker Past Alcohol Use History: None Reported Past Drug Use History: None Reported General Exam Limitations: no limitations General appearance: alert, in no apparent distress Head exam: Present: atraumatic, normocephalic, normal inspection Eye exam: Present: normal appearance, PERRL, EOMI. Absent: scleral icterus, conjunctival injection, periorbital swelling ENT exam: Present: normal exam, mucous membranes moist Neck exam: Present: normal inspection. Absent: tenderness, meningismus, lymphadenopathy Respiratory exam: Present: normal lung sounds bilaterally. Absent: respiratory distress, wheezes, rales, rhonchi, stridor Cardiovascular Exam: Present: regular rate, normal rhythm, normal heart sounds. Absent: systolic murmur, diastolic murmur, rubs, gallop, clicks GI/Abdominal exam: Present: soft, normal bowel sounds. Absent: distended, tenderness, guarding, rebound, rigid Back exam: Present: CVA tenderness (L). Absent: CVA tenderness (R) Course Vital Signs 09/17/20 09/18/20 20:11 00:15 Temperature 97.4 F L 98.4 F Pulse Rate 102 H 87 Respiratory 18 22 Rate Blood Pressure 125/74 131/84 O2 Sat by Pulse 98 96 Oximetry EKG Findings - EKG Comments: EKG Findings:: Normal sinus rhythm, ventricular rate 81, MI interval 140, QTC 450 Medical Decision Making - Medical Decision Making Vitals are stable. heart tones were performed which were 130s. CBC does show mild leukocytosis. Urinalysis does show evidence of infection with 109 white blood cells. Patient does have left CVA tenderness. Ultrasound shows left sided hydronephrosis with enlarged kidney. There are multiple left-sided renal calculi as well. Patient was given 2 g of IV antibiotics as well as fluids. She was given Dilaudid. She was not given antiemetics as she has a history of prolonged QT with AICD. Patient will need to be admitted for pyelonephritis and possible kidney stone. Case discussed with Dr. Carmen, we will get an MRI in the morning. Case was discussed with Dr. Nicholson who did accept this admission. - Lab Data Result diagrams: 09/17/20 22:24 09/17/20 22:24 Lab Results 09/17/20 09/17/20 09/17/20 Range/Units 22:24 22:24 22:24 WBC 14.2 H (3.8-10.6) k/uL RBC 3.75 L (3.80-5.40) m/uL Hgb 11.7 (11.4-16.0) gm/dL Hct 32.6 L (34.0-46.0) % MCV 86.8 (80.0-100.0) fL MCH 31.3 (25.0-35.0) pg MCHC 36.1 (31.0-37.0) g/dL RDW 12.7 (11.5-15.5) % Plt Count 175 (150-450) k/uL MPV 7.4 Neutrophils % 89 % Lymphocytes % 7 % Monocytes % 3 % Eosinophils % 0 % Basophils % 0 % Neutrophils # 12.6 H (1.3-7.7) k/uL Lymphocytes # 1.0 (1.0-4.8) k/uL Monocytes # 0.5 (0-1.0) k/uL Eosinophils # 0.0 (0-0.7) k/uL Basophils # 0.0 (0-0.2) k/uL Sodium 136 L (137-145) mmol/L Potassium 3.9 (3.5-5.1) mmol/L Chloride 107 (98-107) mmol/L Carbon Dioxide 22 (22-30) mmol/L Anion Gap 7 mmol/L BUN 8 (7-17) mg/dL Creatinine 0.75 (0.52-1.04) mg/dL Est GFR (CKD-EPI)AfAm >90 (>60 ml/min/1.73 sqM) Est GFR (CKD-EPI)NonAf >90 (>60 ml/min/1.73 sqM) Glucose 94 (74-99) mg/dL Calcium 8.8 (8.4-10.2) mg/dL Total Bilirubin 0.2 (0.2-1.3) mg/dL AST 17 (14-36) U/L ALT <6 (4-34) U/L Alkaline Phosphatase 49 (38-126) U/L Total Protein 6.0 L (6.3-8.2) g/dL Albumin 3.6 (3.5-5.0) g/dL Amylase 95 (30-110) U/L Lipase 79 (23-300) U/L Urine Color Yellow Urine Appearance Cloudy H (Clear) Urine pH 5.5 (5.0-8.0) Ur Specific [place] 1.027 (1.001-1.035) Urine Protein 1+ H (Negative) Urine Glucose (UA) Negative (Negative) Urine Ketones Negative (Negative) Urine Blood Moderate H (Negative) Urine Nitrite Negative (Negative) Urine Bilirubin Negative (Negative) Urine Urobilinogen <2.0 (<2.0) mg/dL Ur Leukocyte Esterase Large H (Negative) Urine RBC 68 H (0-5) /hpf Urine WBC 109 H (0-5) /hpf Ur Squamous Epith Cells 31 H (0-4) /hpf Calcium Oxalate Crystal Few H (None) /hpf Urine Bacteria Rare H (None) /hpf Urine Mucus Rare H (None) /hpf Disposition Clinical Impression: Pyelonephritis, Flank pain, Nephrolithiasis Disposition: ADMITTED IP TO THIS HOSP Is patient prescribed a controlled substance at d/c from ED?: No Referrals: Alan Stallings MD [Primary Care Provider] - 1-2 days Time of Disposition: 00:25
[2020-09-17] MEDS ORDERED: cefTRIAXone IN SWFI 1,000 MG/10 ML SYRINGE IVP STA (23:35)
--- NOTE | 2020-09-17 23:41 | US ---
EXAMINATION TYPE: US kidneys/renal and bladder DATE OF EXAM: 09/17/2020 COMPARISON: NONE CLINICAL HISTORY: kidney stone, left. 25 weeks with severe left flank pain, known stones EXAM MEASUREMENTS: Right Kidney: 10.6 x 4.4 x 5.3 cm Left Kidney: 13.5 x 5.4 x 6.9 cm Right Kidney: 2 stones seen within inferior pole 0.6 x 0.6cm in size Left Kidney: Slightly enlarged, with multiple stones, largest appears to be 0.6 x 0.8cm, moderate hyd ronephrosis noted. Bladder: not distended IMPRESSION: Left-sided hydronephrosis with enlarged kidney. Multiple left-sided renal calculi. There are also latha e right renal calculi.
[2020-09-18] MEDS ORDERED: NALOXONE 0.4 MG/ML 1 ML VIAL IV PRN (00:18)
[2020-09-18] MEDS ORDERED: ACETAMINOPHEN IV (For NPO) 1,000 MG in EMPTY BAG 1 BAG IVPB STA (00:20)
[2020-09-18] MEDS: SODIUM CHLORIDE 0.9% 1,000 ML IV SCH (00:57)
--- NOTE | 2020-09-18 02:07 | P.HPIM ---
History of Present Illness H&P Date: 09/18/20 The patient is a 24-year-old female with a PMH of long QT syndrome status post AICD placement, currently at 26 weeks gestation who presented to the emergency room with complaints of left flank pain. Patient reports that a few weeks ago she began having urinary urgency and was seen at her primary care physician who prescribed her a course of oral antibiotics. She was subsequently seen again this past Monday and underwent multiple other tests and was told that she has kidney stones and was prescribed Flomax. The patient reports that her urinary hesitancy gradually worsened and today at around 4:30 PM she suddenly developed a left flank pain, 9 out of 10, with radiating to the left side and on towards the bladder. she reports associated nausea with 2-3 episodes of nonbloody emesis. She denied subjective fevers at home. At the time of interview, reports that her pain has improved to 4 out of 10. Denied hematuria, chest pain, shortness of breath, cough. Also denied dizziness, headaches, weakness, numbness, tingling. In the emergency room, a kidney ultrasound revealed left-sided hydronephrosis with multiple bilateral renal calculi. Laboratory evaluation was remarkable for leukocytosis of 14.2, sodium 136, BUN 8, creatinine 0.75, with UA consistent with UTI. Review of systems: Pertinent positives and negatives as discussed in HPI, a complete review of systems was performed and all other systems are negative. Physical examination: General: non toxic, no distress, appears at stated age, normal weight Derm: no unusual rashes/lesions no unusual ecchymoses, warm, dry Head: atraumatic, normocephalic, symmetric Eyes: EOMI, no lid lag, anicteric sclera, pupils equal round reactive to light ENT: Nose and ears atraumatic, no thrush, no pharyngeal erythema Neck: No thyromegaly, no cervical lymphadenopathy, trachea midline, supple Mouth: no lip lesion, mucus membranes moist Cardiovascular: S1S2 reg, no murmur, positive posterior tibial pulse bilateral, no edema, capillary refill less than 2 seconds Lungs: CTA bilateral, no rhonchi, no rales , no accessory muscle use Abdominal: soft, consistent with gestation, no guarding, normal bowel sounds, left CVA tenderness Ext: no gross muscle atrophy, muscle strength 5 out of 5 in all 4 extremities grossly, no contractures, Neuro: CN II-XI grossly intact, light touch intact all 4 extremities, finger to nose within normal limits, Psych: Alert, oriented, appropriate affect Assessment/plan Pyelonephritis w/ jing kidney stones and L sided hydronephrosis in setting of 26 weeks gestation -Continue with ceftriaxone -Follow up cultures -Pain control -Continue with IV fluids -Urology consult Hx of Long QT syndrome -Avoid QT prolonging agents DVT prophylaxis -IPCDs The patient is admitted with an anticipated greater than 2 midnight stay for evaluation of UTI. CODE STATUS:Full Code Discussed with: Patient Anticipated discharge date: 2-[address]: Home A total of 35 minutes was spent on the care of this complex patient more than 50% of the time was spent in counseling and care coordination. Past Medical History Past Medical History: No Reported History Additional Past Medical History / Comment(s): long QT syndrome History of Any Multi-Drug Resistant Organisms: None Reported Past Surgical History: AICD Past Psychological History: No Psychological Hx Reported Smoking Status: Never smoker Past Alcohol Use History: None Reported Past Drug Use History: None Reported Medications and Allergies Home Medications Medication Instructions Recorded Confirmed Type Metoprolol Succinate (ER) [Toprol 50 mg PO HS 03/12/20 09/06/20 History Xl] Cholecalciferol [Vitamin D3 (25 50 mcg PO HS 07/25/20 09/06/20 History Mcg = 1000 Iu)] Doxylamine Succinate [Unisom] 25 mg PO HS PRN 07/25/20 09/06/20 History Famotidine [Pepcid] 20 mg PO BID 07/25/20 09/06/20 History Folic Acid 0.4 mg PO DAILY 07/25/20 09/06/20 History Vitamin B-6 25mg 25 mg PO BID 07/25/20 09/06/20 History Nitrofurantoin Monohyd/M-Cryst 100 mg PO Q12HR #14 cap 09/06/20 Rx [Macrobid] Allergies Allergy/AdvReac Type Severity Reaction Status Date / Time No Known Allergies Allergy Verified 09/17/20 20:11 Physical Exam Vitals: Vital Signs Temp Pulse Resp BP Pulse Ox 09/18/20 00:15 98.4 F 87 22 131/84 96 09/17/20 20:11 97.4 F L 102 H 18 125/74 98 Intake and Output 09/17/20 09/17/20 09/18/20 14:59 22:59 06:59 Other: Voiding Method Toilet Weight 77.111 kg Results CBC & Chem 7: 09/17/20 22:24 09/17/20 22:24 Labs: Abnormal Lab Results - Last 24 Hours (Table) 09/17/20 09/17/20 09/17/20 Range/Units 22:24 22:24 22:24 WBC 14.2 H (3.8-10.6) k/uL RBC 3.75 L (3.80-5.40) m/uL Hct 32.6 L (34.0-46.0) % Neutrophils # 12.6 H (1.3-7.7) k/uL Sodium 136 L (137-145) mmol/L Total Protein 6.0 L (6.3-8.2) g/dL Urine Appearance Cloudy H (Clear) Urine Protein 1+ H (Negative) Urine Blood Moderate H (Negative) Ur Leukocyte Esterase Large H (Negative) Urine RBC 68 H (0-5) /hpf Urine WBC 109 H (0-5) /hpf Ur Squamous Epith Cells 31 H (0-4) /hpf Calcium Oxalate Crystal Few H (None) /hpf Urine Bacteria Rare H (None) /hpf Urine Mucus Rare H (None) /hpf
[2020-09-18] MEDS: HYDROmorphone 0.5 MG/0.5 ML SYRINGE IVP PRN ×4 (03:17→16:48)
[2020-09-18 06:42] LABS: HCT 30.7 % (34.0-46.0); HGB 10.7 gm/dL (11.4-16.0); MCH 30.7 pg (25.0-35.0); MCHC 34.8 g/dL (31.0-37.0); Mean Platelet Volume 7.5; Platelet Count 186 k/uL (150-450); RBC 3.49 m/uL (3.80-5.40); RDW 12.9 % (11.5-15.5); WBC 12.6 k/uL (3.8-10.6)
[2020-09-18] MEDS ORDERED: LORazepam 2 MG/ML INJ IV STA (07:56)
[2020-09-18] MEDS ORDERED: chlordiazePOXIDE 25 MG CAP PO SCH (09:00)
--- NOTE | 2020-09-18 12:55 | P.PN ---
<Jaun Stroud - Last Filed: 09/18/20 13:31> Subjective Progress Note Date: 09/18/20 Hospital course: Patient is a 24-year-old female who is currently 26 weeks gestation (G4 T3 L3) with a past medical history of long QT syndrome and is status post AICD placement. She presented to the hospital on 09/17/20 with a chief complaint of left flank pain. Patient recently treated for UTI and completed course of antibiotics 2 weeks ago and secondary to persistent urinary symptoms she underwent additional testing and was diagnosed with kidney stones and started on Flomax this past Monday. Patient presented to the hospital after she reports her urinary hesitancy gradually worsened and she developed sudden onset severe left flank pain accompanied by significant nausea accompanied by 2-3 episodes of nonbloody emesis. Patient was seen and fully evaluated in the emergency de partment found to have leukocytosis with WBC count of 14.2 with a left shift, acute pyelonephritis, and underwent renal ultrasound revealing left-sided hydronephrosis with multiple renal calculi. Patient admitted under our services with consultation to urology, cardiology, and DIALYSIS PATIENT CARE TECHNICIAN. Physical exam: Patient seen and fully evaluated at the bedside. She reports continued constant left flank pain. Described as sharp and rated 9 out of 10. Patient states pain is worse than labor and delivery of her other 3 children. She reports persistent nausea unable to give antiemetics secondary to history of long QT syndrome. Patient awaiting evaluation by urology. She denies having any fever, chills, headache, lightheadedness, dizziness, changes in her vision or hearing, chest pain or palpitations, shortness of breath, or experiencing any further episodes of vomiting. General: non toxic, no distress, appears at stated age Derm: warm, dry Head: atraumatic, normocephalic, symmetric Eyes: EOMI, no lid lag, anicteric sclera Mouth: no lip lesion, mucus membranes moist Cardiovascular: S1S2 reg, no murmur, positive posterior tibial pulse bilateral, Lungs: CTA bilateral, no rhonchi, no rales , no accessory muscle use Abdominal: Gravid abdomen, left flank tenderness and left CVA tenderness with palpation. Ext: no gross muscle atrophy, no edema, no contractures Neuro: CN II-XI grossly intact, no focal neuro deficits Psych: Alert, oriented, appropriate affect Plan of care: Renal calculi with left-sided hydronephrosis in setting of 26 weeks gestation -Renal ultrasound revealing multiple renal calculi with left-sided hydr onephrosis. -Urology following, plan to take patient to or for placement of renal stent -Pain management and symptomatic care -Continued IV hydration -OB consulted for continued monitoring, cardiology consulted for surgical clearance. Pyelonephritis -Urinalysis positive for infection. -WBC's improving from 14.2 down to 12.6. -Continue with IV hydration. -Continue Rocephin 1 g every 24 hours. -Urine culture pending results. Long QT syndrome status post AICD placement -AICD in place -Telemetry monitoring -Avoid all QT prolongation drugs -Cardiology consult for surgical clearance CODE STATUS: Full code DVT prophylaxis: SCDs Discussed with: Patient and RN Anticipated discharge date: Clinical course to determine Anticipated discharge place: Home A total of 45 minutes was spent on the care of this complex patient more than 50% of the time was spent in counseling and care coordination. Objective - Vital Signs Vital signs: Vital Signs Temp 98.4 F 09/18/20 06:55 Pulse 73 09/18/20 06:55 Resp 20 09/18/20 06:55 BP 102/62 09/18/20 06:55 Pulse Ox 99 09/18/20 06:55 Intake & Output 09/17/20 09/18/20 09/18/20 18:59 06:59 18:59 Weight 77.111 kg 77.111 kg Other: Voiding Method Toilet - Labs CBC & Chem 7: 09/18/20 06:08 09/17/20 22:24 Labs: Abnormal Lab Results - Last 24 Hours (Table) 09/17/20 09/17/20 09/17/20 Range/Units 22:24 22:24 22:24 WBC 14.2 H (3.8-10.6) k/uL RBC 3.75 L (3.80-5.40) m/uL Hgb (11.4-16.0) gm/dL Hct 32.6 L (34.0-46.0) % Neutrophils # 12.6 H (1.3-7.7) k/uL Sodium 136 L (137-145) mmol/L Total Protein 6.0 L (6.3-8.2) g/dL Urine Appearance Cloudy H (Clear) Urine Protein 1+ H (Negative) Urine Blood Moderate H (Negative) Ur Leukocyte Esterase Large H (Negative) Urine RBC 68 H (0-5) /hpf Urine WBC 109 H (0-5) /hpf Ur Squamous Epith Cells 31 H (0-4) /hpf Calcium Oxalate Crystal Few H (None) /hpf Urine Bacteria Rare H (None) /hpf Urine Mucus Rare H (None) /hpf 09/18/20 Range/Units 06:08 WBC 12.6 H (3.8-10.6) k/uL RBC 3.49 L (3.80-5.40) m/uL Hgb 10.7 L (11.4-16.0) gm/dL Hct 30.7 L (34.0-46.0) % Neutrophils # (1.3-7.7) k/uL Sodium (137-145) mmol/L Total Protein (6.3-8.2) g/dL Urine Appearance (Clear) Urine Protein (Negative) Urine Blood (Negative) Ur Leukocyte Esterase (Negative) Urine RBC (0-5) /hpf Urine WBC (0-5) /hpf Ur Squamous Epith Cells (0-4) /hpf Calcium Oxalate Crystal (None) /hpf Urine Bacteria (None) /hpf Urine Mucus (None) /hpf Microbiology - Last 24 Hours (Table) 09/17/20 22:24 Urine Culture - Preliminary Urine,Voided <Gloria,Sivateja - Last Filed: 09/18/20 18:35> Objective - Vital Signs Vital signs: Vital Signs Temp 98.3 F 09/18/20 17:26 Pulse 70 09/18/20 17:26 Resp 16 09/18/20 17:26 BP 109/70 09/18/20 17:26 Pulse Ox 99 09/18/20 17:26 Intake & Output 09/17/20 09/18/20 09/18/20 18:59 06:59 18:59 Weight 77.111 kg 77.111 kg Other: Voiding Method Toilet - Labs CBC & Chem 7: 09/18/20 06:08 09/17/20 22:24 Labs: Abnormal Lab Results - Last 24 Hours (Table) 09/17/20 09/17/20 09/17/20 Range/Units 22:24 22:24 22:24 WBC 14.2 H (3.8-10.6) k/uL RBC 3.75 L (3.80-5.40) m/uL Hgb (11.4-16.0) gm/dL Hct 32.6 L (34.0-46.0) % Neutrophils # 12.6 H (1.3-7.7) k/uL Sodium 136 L (137-145) mmol/L Total Protein 6.0 L (6.3-8.2) g/dL Urine Appearance Cloudy H (Clear) Urine Protein 1+ H (Negative) Urine Blood Moderate H (Negative) Ur Leukocyte Esterase Large H (Negative) Urine RBC 68 H (0-5) /hpf Urine WBC 109 H (0-5) /hpf Ur Squamous Epith Cells 31 H (0-4) /hpf Calcium Oxalate Crystal Few H (None) /hpf Urine Bacteria Rare H (None) /hpf Urine Mucus Rare H (None) /hpf 09/18/20 Range/Units 06:08 WBC 12.6 H (3.8-10.6) k/uL RBC 3.49 L (3.80-5.40) m/uL Hgb 10.7 L (11.4-16.0) gm/dL Hct 30.7 L (34.0-46.0) % Neutrophils # (1.3-7.7) k/uL Sodium (137-145) mmol/L Total Protein (6.3-8.2) g/dL Urine Appearance (Clear) Urine Protein (Negative) Urine Blood (Negative) Ur Leukocyte Esterase (Negative) Urine RBC (0-5) /hpf Urine WBC (0-5) /hpf Ur Squamous Epith Cells (0-4) /hpf Calcium Oxalate Crystal (None) /hpf Urine Bacteria (None) /hpf Urine Mucus (None) /hpf Microbiology - Last 24 Hours (Table) 09/17/20 22:24 Urine Culture - Preliminary Urine,Voided Assessment and Plan Assessment: I reviewed the documentation as provided by the JERMAIN above, who is the original author of this note. I agree with the documented assessment and plan, with the following changes: None
--- NOTE | 2020-09-18 16:44 | P.GSCN ---
History of Present Illness Consult date: 09/18/20 Reason for Consult: Left renal colic Requesting physician: Musa Nicholson History of present illness: The patient is a 24-year-old white female with a history of long QT syndrome (status post AICD placement). She is currently at 26 weeks gestation. She reports a recent history of urinary urgency. She was seen by her phys assistant at [facility] on 09/14/2020. A urine culture at that time showed contamination. 2 cultures obtained in June showed no growth. She presented to the emergency room with severe left flank pain associated with nausea and vomiting. Ultrasound shows evidence of left hydronephrosis and bilateral renal calculi. 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 History of Any Multi-Drug Resistant Organisms: None Reported Past Surgical History: AICD, Pacemaker Past Anesthesia/Blood Transfusion Reactions: Motion Sickness Additional Past Anesthesia/Blood Transfusion Reaction / Comm: Pt has clausterphobia. Type of Cardiac Device: Permanent Pacemaker, AICD Device Placement Date:: 08/03/10 Smoking Status: Never smoker - Past Family History Father Family Medical History: No Reported History Additional Family Medical History / Comment(s): Father is healthy Mother Family Medical History: Asthma, Thyroid Disorder Medications and Allergies Home Medications Medication Instructions Recorded Confirmed Type Metoprolol Succinate (ER) [Toprol 50 mg PO HS 03/12/20 09/18/20 History Xl] Cholecalciferol [Vitamin D3 (25 50 mcg PO HS 07/25/20 09/18/20 History Mcg = 1000 Iu)] Doxylamine Succinate [Unisom] 25 mg PO HS PRN 07/25/20 09/18/20 History Famotidine [Pepcid] 20 mg PO BID 07/25/20 09/18/20 History RX: Folic Acid 0.4 mg PO DAILY 03/27/21 05/21/21 History Vitamin B-6 25mg 25 mg PO BID 07/25/20 09/18/20 History Allergies Allergy/AdvReac Type Severity Reaction Status Date / Time No Known Allergies Allergy Verified 09/18/20 06:38 Surgical - Exam Vital Signs Temp Pulse Resp BP Pulse Ox 97.4 F L 102 H 18 125/74 98 09/17/20 20:11 09/17/20 20:11 09/17/20 20:11 09/17/20 20:11 09/17/20 20:11 - General well developed, well nourished, severe pain - Neck no masses, trachea midline - Respiratory normal respiratory effort - Abdomen Soft, non-distended. Gravid uterus. Mild left lower quadrant tenderness, no guarding or rebound. - Psychiatric oriented to time, oriented to person, oriented to place, speech is normal, memory intact Results - Labs 09/18/20 06:08 09/17/20 22:24 Abnormal Lab Results - Last 24 Hours (Table) 09/17/20 09/17/20 09/17/20 Range/Units 22:24 22:24 22:24 WBC 14.2 H (3.8-10.6) k/uL RBC 3.75 L (3.80-5.40) m/uL Hgb (11.4-16.0) gm/dL Hct 32.6 L (34.0-46.0) % Neutrophils # 12.6 H (1.3-7.7) k/uL Sodium 136 L (137-145) mmol/L Total Protein 6.0 L (6.3-8.2) g/dL Urine Appearance Cloudy H (Clear) Urine Protein 1+ H (Negative) Urine Blood Moderate H (Negative) Ur Leukocyte Esterase Large H (Negative) Urine RBC 68 H (0-5) /hpf Urine WBC 109 H (0-5) /hpf Ur Squamous Epith Cells 31 H (0-4) /hpf Calcium Oxalate Crystal Few H (None) /hpf Urine Bacteria Rare H (None) /hpf Urine Mucus Rare H (None) /hpf 09/18/20 Range/Units 06:08 WBC 12.6 H (3.8-10.6) k/uL RBC 3.49 L (3.80-5.40) m/uL Hgb 10.7 L (11.4-16.0) gm/dL Hct 30.7 L (34.0-46.0) % Neutrophils # (1.3-7.7) k/uL Sodium (137-145) mmol/L Total Protein (6.3-8.2) g/dL Urine Appearance (Clear) Urine Protein (Negative) Urine Blood (Negative) Ur Leukocyte Esterase (Negative) Urine RBC (0-5) /hpf Urine WBC (0-5) /hpf Ur Squamous Epith Cells (0-4) /hpf Calcium Oxalate Crystal (None) /hpf Urine Bacteria (None) /hpf Urine Mucus (None) /hpf Microbiology - Last 24 Hours (Table) 09/17/20 22:24 Urine Culture - Preliminary Urine,Voided Diabetes panel 09/17/20 Range/Units 22:24 Sodium 136 L (137-145) mmol/L Potassium 3.9 (3.5-5.1) mmol/L Chloride 107 (98-107) mmol/L Carbon Dioxide 22 (22-30) mmol/L BUN 8 (7-17) mg/dL Creatinine 0.75 (0.52-1.04) mg/dL Glucose 94 (74-99) mg/dL Calcium 8.8 (8.4-10.2) mg/dL AST 17 (14-36) U/L ALT <6 (4-34) U/L Alkaline Phosphatase 49 (38-126) U/L Total Protein 6.0 L (6.3-8.2) g/dL Albumin 3.6 (3.5-5.0) g/dL Calcium panel 09/17/20 Range/Units 22:24 Calcium 8.8 (8.4-10.2) mg/dL Albumin 3.6 (3.5-5.0) g/dL Pituitary panel 09/17/20 Range/Units 22:24 Sodium 136 L (137-145) mmol/L Potassium 3.9 (3.5-5.1) mmol/L Chloride 107 (98-107) mmol/L Carbon Dioxide 22 (22-30) mmol/L BUN 8 (7-17) mg/dL Creatinine 0.75 (0.52-1.04) mg/dL Glucose 94 (74-99) mg/dL Calcium 8.8 (8.4-10.2) mg/dL Adrenal panel 09/17/20 Range/Units 22:24 Sodium 136 L (137-145) mmol/L Potassium 3.9 (3.5-5.1) mmol/L Chloride 107 (98-107) mmol/L Carbon Dioxide 22 (22-30) mmol/L BUN 8 (7-17) mg/dL Creatinine 0.75 (0.52-1.04) mg/dL Glucose 94 (74-99) mg/dL Calcium 8.8 (8.4-10.2) mg/dL Total Bilirubin 0.2 (0.2-1.3) mg/dL AST 17 (14-36) U/L ALT <6 (4-34) U/L Alkaline Phosphatase 49 (38-126) U/L Total Protein 6.0 L (6.3-8.2) g/dL Albumin 3.6 (3.5-5.0) g/dL Assessment and Plan (1) Hydronephrosis concurrent with and due to calculi of kidney and ureter Current Visit: Yes Status: Acute Code(s): N13.2 - HYDRONEPHROSIS WITH RENAL AND URETERAL CALCULOUS OBSTRUCTION SNOMED Code(s): 507380296 Plan: I had a lengthy discussion with the patient regarding her condition. Management options include placement of a left percutaneous nephrostomy tube, ureteral stent insertion, and ureteroscopy with laser lithotripsy. Urinalysis shows evidence of pyuria, but there is significant number of epithelial cells and thus appears this is a contaminated specimen as the urine culture on September 14 showed. In view of this, I have recommended she undergo ureteroscopy with laser lithotripsy. The recent history of urgency suggests there may be a calculus at the left ureterovesical junction. The procedure was reviewed in detail with the patient. Potential risks were discussed, which include anesthesia, bleeding, infection, ureteral injury, inability to remove the calculus, and precipitation or premature contractions. Arrangements have been made for her to undergo this procedure on 09/19/2020.
[2020-09-18 20:13] VITALS: TEMP 98.1
--- NOTE | 2020-09-18 22:17 | P.OBCN ---
History of Present Illness Consult date: 09/18/20 Requesting physician: Musa Nicholson Reason for consult: other () Chief complaint: Left flank pain, vomiting History of present illness: This is a 24-year-old female 4 para 3 with an estimated date of confinement of approximately 12/27/2020, estimated gestational age of approximately 25-4/7 weeks who presented to the emergency room on evening complaining of acute onset of sharp left flank pain and vomiting. She complains of pelvic pressure and urgency for approximately 1 week and was seen in the Hospital in triage on Mother's Day and was told she had a urinary tract infection. She did go see her costume cutter this past Monday and was still urinating blood. They took her off of work and told her that her urine culture was negative. When she returned to the emergency room here on night, an ultrasound was performed that showed bilateral kidney stones but a kidney stone on the left side that appeared to be obstructing. The stone on this side was 0.6 x 0.8 cm and moderate hydronephrosis is noted. She was seen by Dr. Pastrana who did recommend ureteroscopy with laser lithotripsy and this was tentatively scheduled for tomorrow. In discussions with the patient regarding surgery, she was advised that this does have a potential for contractio ns and/or labor. In discussing this with the patient, she stated that she would feel more comfortable in a facility where they did have a high risk obstetrics due to this risk of triggering labor. She states she wants what is best for her baby. Her is high risk due to the fact that she has a ICD defibrillator and pacemaker that was placed in 2010 after she had a cardiac arrest when she was 4 months . At that time she was diagnosed with long QT syndrome. She is being followed by the high risk obstetrical clinic at [facility]. She also sees a Dr. Elias at [place] for her drug abuse worker. 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 History of cardiac arrest in 2010. History of Any Multi-Drug Resistant Organisms: None Reported Past Surgical History: AICD, Pacemaker Past Anesthesia/Blood Transfusion Reactions: Motion Sickness Additional Past Anesthesia/Blood Transfusion Reaction / Comm: Pt has clausterphobia. Type of Cardiac Device: Permanent Pacemaker, AICD Device Placement Date:: 08/03/10 Smoking Status: Never smoker Past Alcohol Use History: None Reported Past Drug Use History: None Reported - Past Family History Father Family Medical History: No Reported History Additional Family Medical History / Comment(s): Father is healthy Mother Family Medical History: Asthma, Thyroid Disorder Medications and Allergies Home Medications Medication Instructions Recorded Confirmed Type Metoprolol Succinate (ER) [Toprol 50 mg PO HS 03/12/20 09/18/20 History Xl] Cholecalciferol [Vitamin D3 (25 50 mcg PO HS 07/25/20 09/18/20 History Mcg = 1000 Iu)] Doxylamine Succinate [Unisom] 25 mg PO HS PRN 07/25/20 09/18/20 History Famotidine [Pepcid] 20 mg PO BID 07/25/20 09/18/20 History Folic Acid 0.4 mg PO DAILY 07/25/20 09/18/20 History Vitamin B-6 25mg 25 mg PO BID 07/25/20 09/18/20 History Allergies Allergy/AdvReac Type Severity Reaction Status Date / Time No Known Allergies Allergy Verified 09/18/20 06:38 Exam Osteopathic Statement: *. No significant issues noted on an osteopathic structural exam other than those noted in the History and Physical/Consult. Vital Signs Temp Pulse Pulse Resp BP BP Pulse Ox 09/18/20 20:11 98.1 F 70 16 101/59 97 09/18/20 17:26 98.3 F 70 16 109/70 99 09/18/20 06:55 98.4 F 73 20 102/62 99 09/18/20 00:15 98.4 F 87 22 131/84 96 Intake and Output 09/18/20 09/18/20 09/18/20 06:59 14:59 22:59 Other: Weight 77.111 kg Gen.: Well-developed well-nourished female in no acute distress currently heart tones: 140s with good variability. Contractions: No contractions seen on the monitor No pelvic exam is performed. Results Result Diagrams: 09/18/20 06:08 09/17/20 22:24 Abnormal Lab Results - Last 24 Hours (Table) 09/17/20 09/17/20 09/17/20 Range/Units 22:24 22:24 22:24 WBC 14.2 H (3.8-10.6) k/uL RBC 3.75 L (3.80-5.40) m/uL Hgb (11.4-16.0) gm/dL Hct 32.6 L (34.0-46.0) % Neutrophils # 12.6 H (1.3-7.7) k/uL Sodium 136 L (137-145) mmol/L Total Protein 6.0 L (6.3-8.2) g/dL Urine Appearance Cloudy H (Clear) Urine Protein 1+ H (Negative) Urine Blood Moderate H (Negative) Ur Leukocyte Esterase Large H (Negative) Urine RBC 68 H (0-5) /hpf Urine WBC 109 H (0-5) /hpf Ur Squamous Epith Cells 31 H (0-4) /hpf Calcium Oxalate Crystal Few H (None) /hpf Urine Bacteria Rare H (None) /hpf Urine Mucus Rare H (None) /hpf 09/18/20 Range/Units 06:08 WBC 12.6 H (3.8-10.6) k/uL RBC 3.49 L (3.80-5.40) m/uL Hgb 10.7 L (11.4-16.0) gm/dL Hct 30.7 L (34.0-46.0) % Neutrophils # (1.3-7.7) k/uL Sodium (137-145) mmol/L Total Protein (6.3-8.2) g/dL Urine Appearance (Clear) Urine Protein (Negative) Urine Blood (Negative) Ur Leukocyte Esterase (Negative) Urine RBC (0-5) /hpf Urine WBC (0-5) /hpf Ur Squamous Epith Cells (0-4) /hpf Calcium Oxalate Crystal (None) /hpf Urine Bacteria (None) /hpf Urine Mucus (None) /hpf Microbiology - Last 24 Hours (Table) 09/17/20 22:24 Urine Culture - Preliminary Urine,Voided Assessment and Plan (1) 25 weeks gestation of Current Visit: Yes Status: Acute Code(s): Z3A.25 - 25 WEEKS GESTATION OF SNOMED Code(s): 24249339 (2) Flank pain Current Visit: Yes Status: Acute Code(s): R10.9 - UNSPECIFIED ABDOMINAL PAIN SNOMED Code(s): 510916665 (3) Nephrolithiasis Current Visit: Yes Status: Acute Code(s): N20.0 - CALCULUS OF KIDNEY SNOMED Code(s): 94577019 Plan: Impression is that this patient has a high risk and the proposed procedure to remove the kidney stone does have risk of putting her into labor. I have discussed these risks with the patient and advised that she may be better served by transferring to [facility] where there is high risk obstetrics that could monitor her baby and deal with any labor complications if they were to arise with surgery. The patient feels comfortable with this decision. I did speak with a Dr. Nicki Kasper who is maternal medicine specialist at [facility] and she agrees to take the transfer. I also spoke with Dr. Danish Callahan in the obstetrics unit with a phone number of [phone] and he is aware of the transfer. I spoke with Dr. Nicholson who she is admitted to currently and he agrees with this transfer. Dr. Pastrana was also notified that the patient would be transferred. The patient is also notified of this plan is in agreement.
[2020-09-19] MEDS ORDERED: TRIMETHOBENZAMIDE 100 MG/ML 2 ML VIAL IM PRN (00:42)
[2020-09-19] MEDS ORDERED: MORPHINE SULFATE 2 MG/ML SYRINGE IVP PRN (00:42)
[2020-09-19] MEDS ORDERED: CALCIUM CARBONATE LIQUID 500 MG/5 ML CUP PO SCH (00:45)
[2020-09-19] MEDS ORDERED: ACETAMINOPHEN TAB 325 MG TAB PO PRN (01:36)
--- NOTE | 2020-09-19 01:50 | P.DS ---
Providers Date of admission: 09/17/20 23:57 Expected date of discharge: 09/19/20 Attending physician: Musa Nicholson MD Consults: 09/18/20 00:19 Consult Physician Routine Consulting Provider: Bob Pastrana Consult Reason/Comments: nephrolithiasis Do you want consulting provider notified?: Yes 09/18/20 14:18 Consult Physician Routine Consulting Provider: Camila Miller Consult Reason/Comments: 26 weeks gestation admitted with pyelonephritis, renal calculi w hydronephr Do you want consulting provider notified?: Yes 09/18/20 14:22 Consult Physician Routine Consulting Provider: Latonya Thacker Consult Reason/Comments: Hx long QT s/p AICD, need sx for renal stent Do you want consulting provider notified?: Yes Primary care physician: Alan Stallings MD Hospital Course: The patient is a 24-year-old female with a PMH of long QT syndrome status post AICD placement, currently at 26 weeks gestation who presented to the emergency room with complaints of left flank pain. The patient was diagnosed with bilateral nephrolithiasis, hydronephrosis, and pyelonephritis. Urology was consulted who recommended ureteroscopy with laser lithotripsy. QUALITY CONTROL REPRESENTATIVE was also consulted and noted that in light of the patient's high risk , lithotripsy procedure would put her at risk for labor and that she should be transferred to [facility] where she is getting her routine obstetric care. The patient also follows with cardiology at [facility] for her long QT syndrome with AICD and pacemaker placement. The case was discussed with Dr. Callahan at the Labor and Delivery unit. The case was accepted by Dr Nicki Kasper of the Maternal Medicine department at [facility]. Discussed the plan with the patient at the bedside who was in agreement. The patient was seen at the bedside on the day of discharge. She reported a migraine headache but denied additional complaints. Reported improvements in her left flank pain. Denied fevers, chills, chest pain, shortness of breath, abdominal pain. Physical Examination General: Non-toxic, in no acute distress, appears stated age, normal weight HEENT: NC/AT, anicteric sclerae, moist conjunctiva, no lid-lag, PERRLA Cardiovascular: S1/S2 wnl, no murmurs, rubs, or gallops Lungs: Clear to auscultation, normal respiratory effort, no accessory muscle use Abdominal: Soft, non-tender, consistent with intra-abdominal gestation, no rigidity, mild left flank tenderness Skin: Warm, dry Extremities: No edema or contractures Psychiatric: Alert and oriented to person, place and time, appropriate affect Neuro: CN II-XII grossly intact, Strength 5/5 in all 4 extremities, Speech intact, Sensation to light touch grossly intact throughout Discharge diagnosis: Bilateral nephrolithiasis with hydronephrosis, pyelonephritis, long QT syndrome status post AICD placement, 26 weeks gestation A total of 35 minutes of time were spent preparing this complex discharge summary. Patient Condition at Discharge: Stable Plan - Discharge Summary Discharge Rx Participant: No New Discharge Prescriptions: No Action Metoprolol Succinate (ER) [Toprol Xl] 50 mg PO HS Doxylamine Succinate [Unisom] 25 mg PO HS PRN PRN Reason: SLEEP Vitamin B-6 25mg 25 mg PO BID Famotidine [Pepcid] 20 mg PO BID Cholecalciferol [Vitamin D3 (25 Mcg = 1000 Iu)] 50 mcg PO HS Folic Acid 0.4 mg PO DAILY Discharge Medication List Metoprolol Succinate (ER) [Toprol Xl] 50 mg PO HS 03/12/20 [History] Cholecalciferol [Vitamin D3 (25 Mcg = 1000 Iu)] 50 mcg PO HS 07/25/20 [History] Doxylamine Succinate [Unisom] 25 mg PO HS PRN 07/25/20 [History] Famotidine [Pepcid] 20 mg PO BID 07/25/20 [History] Folic Acid 0.4 mg PO DAILY 07/25/20 [History] Vitamin B-6 25mg 25 mg PO BID 07/25/20 [History] Follow up Appointment(s)/Referral(s): Alan Stallings MD [Primary Care Provider] - 1-2 days Discharge Disposition: OTHER INSTITUTION NOT DEFINED
[2020-09-19] MEDS: SODIUM CHLORIDE 0.9% 1,000 ML IV SCH (02:18)
[2020-09-19 05:29] VITALS: BP 101/57; PULSE 78; RESP 18
== END 2020-09-19 05:53 | disposition other institution (70) ==
LOC: EC 20:02 → INTOOBSV 23:57 → 5NMEDONC 23:57 → UNDODISIN 09-19 05:53
PROVIDERS: ADMIT Internal Medicine; ATTEND Internal Medicine
DX: O23.02 Infections of kidney in pregnancy, second trimester (principal); N20.0 Calculus of kidney; N13.6 Pyonephrosis; I45.81 Long QT syndrome; Z3A.26 26 weeks gestation of pregnancy; Z95.810 Presence of automatic (implantable) cardiac defibrillator; Z20.822 Contact with and (suspected) exposure to COVID-19; Z86.74 Personal history of sudden cardiac arrest; Z82.5 Family history of asthma and other chronic lower respiratory diseases; H54.8 Legal blindness, as defined in USA
CPT/HCPCS: 96361 ×4; 96365; 96376 ×2; 96375 ×2; 99285; 36415 ×2; 80053; 82150; 83605; 83690; 85025; 85027; 81001; 87040; 87086; 87077; 87186; 87635; 76770; G0378 ×2; J0696 ×2; J0131; J1170 ×2; 93005; 96374

== ENCOUNTER 2020-10-07 01:01 | Emergency (ER) | payer OTHER ==
[2020-10-07] MEDS ORDERED: SODIUM CHLORIDE 0.9% 1,000 ML IV STA ×2 (01:04)
--- NOTE | 2020-10-07 01:05 | ED ---
Syncope HPI - General Stated Complaint: Syncope, 28 wks Time Seen by Provider: 10/07/20 01:04 Source: RN notes reviewed, old records reviewed Mode of arrival: EMS Limitations: no limitations - History of Present Illness Initial Comments: This is a 24-year-old female presents for evaluation of syncopal event syncope and collapsed hitting her head patient region radiographic is unsure. Patient denying current chest pain she has admits to mild headache. Although that is resolved. Patient is positive high-risk secondary to history of heart disease she follows her through [facility]. Patient currently has no chest pain no shortness of breath and no significant abdominal pain. Patient recently her during did have her beta ariel cutback secondary to low blood pressure MD Complaint: loss of consciousness, collapsed -: hour(s) Prodromal Symptoms: lightheaded, shortness of breath, AICD discharge -: second(s) Witnessed: no Injuries Sustained Associated with Event: Face Current Symptoms: back to baseline History: previous syncopal episode, pacemaker, AICD Context: at rest, standing up Treatments Prior to Arrival: none - Related Data Home Medications Medication Instructions Recorded Confirmed Metoprolol Succinate (ER) [Toprol 50 mg PO HS 03/12/20 09/18/20 Xl] Cholecalciferol [Vitamin D3 (25 50 mcg PO HS 07/25/20 09/18/20 Mcg = 1000 Iu)] Doxylamine Succinate [Unisom] 25 mg PO HS PRN 07/25/20 09/18/20 Famotidine [Pepcid] 20 mg PO BID 07/25/20 09/18/20 Folic Acid 0.4 mg PO DAILY 07/25/20 09/18/20 Vitamin B-6 25mg 25 mg PO BID 07/25/20 09/18/20 Allergies Allergy/AdvReac Type Severity Reaction Status Date / Time No Known Allergies Allergy Verified 10/07/20 01:08 Review of Systems ROS Statement: Those systems with pertinent positive or pertinent negative responses have been documented in the HPI. ROS Other: All systems not noted in ROS Statement are negative. 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 History of cardiac arrest in 2010. History of Any Multi-Drug Resistant Organisms: None Reported Past Surgical History: AICD, Pacemaker Past Anesthesia/Blood Transfusion Reactions: Motion Sickness Additional Past Anesthesia/Blood Transfusion Reaction / Comment(s): Pt has clausterphobia. Type of Cardiac Device: Permanent Pacemaker, AICD Device Placement Date:: 08/03/10 Smoking Status: Never smoker Past Alcohol Use History: None Reported Past Drug Use History: None Reported - Past Family History Father Family Medical History: No Reported History Additional Family Medical History / Comment(s): Father is healthy Mother Family Medical History: Asthma, Thyroid Disorder General Exam General appearance: alert, in no apparent distress, anxious Head exam: Present: normocephalic, normal inspection. Absent: atraumatic (Patient does have swelling of the nose bleeding of the intraoral) Eye exam: Present: normal appearance, PERRL, EOMI. Absent: scleral icterus, conjunctival injection, periorbital swelling ENT exam: Present: normal exam, mucous membranes moist Neck exam: Present: normal inspection. Absent: tenderness, meningismus, lymphadenopathy Respiratory exam: Present: normal lung sounds bilaterally. Absent: respiratory distress, wheezes, rales, rhonchi, stridor Cardiovascular Exam: Present: regular rate, normal rhythm, normal heart sounds. Absent: systolic murmur, diastolic murmur, rubs, gallop, clicks GI/Abdominal exam: Present: soft, normal bowel sounds. Absent: distended, tenderness, guarding, rebound, rigid Extremities exam: Present: normal inspection, full ROM, normal capillary refill. Absent: tenderness, pedal edema, joint swelling, calf tenderness Back exam: Present: normal inspection Neurological exam: Present: alert, oriented X3, CN II-XII intact Psychiatric exam: Present: normal affect, normal mood Skin exam: Present: warm, dry, intact, normal color. Absent: rash Course Vital Signs 10/07/20 10/07/20 10/07/20 01:04 02:00 02:01 Temperature 97.8 F Pulse Rate 94 76 Pulse Rate [ 74 Instructional Materials Director ] Respiratory 18 16 16 Rate Blood Pressure 109/63 105/63 O2 Sat by Pulse 99 Oximetry 10/07/20 10/07/20 03:00 03:30 Temperature Pulse Rate 67 66 Pulse Rate [ Instructional Materials Director ] Respiratory 16 16 Rate Blood Pressure 97/51 O2 Sat by Pulse 100 100 Oximetry - Reevaluation(s) Reevaluation #1: 10/07/20 04:43 Medical record is reviewed Reevaluation #2: 10/07/20 04:43 No recurrent syncope Reevaluation #3: 10/07/20 04:43 Pacemaker and AICD is interrogated Positive for ventricular tachycardia with shocks delivered Reevaluation #4: 10/07/20 04:43 Spoke with patient at length, patient prefers to follow up with contract attorney as an outpatient who is in close contact with her OB at this time she has no complaints EKG Findings - EKG Comments: EKG Findings:: EKG shows sinus rhythm 86 MS 148 QRS 82 QTC 437 Medical Decision Making - Medical Decision Making 24 female DF for evaluation patient did have a syncopal event syncope and collapse of head injury. Although no headache. No bleeding from nose. Patient did have episode of ventricular tachycardia with AICD correction. Patient is given magnesium and potassium for potassium we'll level of 3.9. Patient and I prefer patient to follow-up with her contract attorney she prefers to try to see him in the office in the morning. And current discharge - Lab Data Result diagrams: 10/07/20 01:11 10/07/20 01:11 Lab Results 10/07/20 10/07/20 10/07/20 Range/Units 01:11 01:11 01:11 WBC 9.5 (3.8-10.6) k/uL RBC 3.92 (3.80-5.40) m/uL Hgb 12.0 (11.4-16.0) gm/dL Hct 33.7 L (34.0-46.0) % MCV 85.9 (80.0-100.0) fL MCH 30.7 (25.0-35.0) pg MCHC 35.7 (31.0-37.0) g/dL RDW 12.6 (11.5-15.5) % Plt Count 205 (150-450) k/uL MPV 7.3 Neutrophils % 73 % Lymphocytes % 19 % Monocytes % 6 % Eosinophils % 1 % Basophils % 0 % Neutrophils # 6.9 (1.3-7.7) k/uL Lymphocytes # 1.8 (1.0-4.8) k/uL Monocytes # 0.5 (0-1.0) k/uL Eosinophils # 0.1 (0-0.7) k/uL Basophils # 0.0 (0-0.2) k/uL Sodium 136 L (137-145) mmol/L Potassium 3.9 (3.5-5.1) mmol/L Chloride 106 (98-107) mmol/L Carbon Dioxide 20 L (22-30) mmol/L Anion Gap 10 mmol/L BUN 9 (7-17) mg/dL Creatinine 0.57 (0.52-1.04) mg/dL Est GFR (CKD-EPI)AfAm >90 (>60 ml/min/1.73 sqM) Est GFR (CKD-EPI)NonAf >90 (>60 ml/min/1.73 sqM) Glucose 88 (74-99) mg/dL Plasma Lactic Acid Emanuel (0.7-2.0) mmol/L Calcium 9.2 (8.4-10.2) mg/dL Phosphorus 4.1 (2.5-4.5) mg/dL Magnesium 1.6 (1.6-2.3) mg/dL Total Bilirubin 0.3 (0.2-1.3) mg/dL AST 19 (14-36) U/L ALT 8 (4-34) U/L Alkaline Phosphatase 57 (38-126) U/L Creatine Kinase 50 (30-135) U/L CK-MB (CK-2) (0.0-2.4) ng/mL Troponin I (0.000-0.034) ng/mL NT-Pro-B Natriuret Pep pg/mL Total Protein 6.2 L (6.3-8.2) g/dL Albumin 3.7 (3.5-5.0) g/dL Urine Color Light Yellow Urine Appearance Clear (Clear) Urine pH 6.5 (5.0-8.0) Ur Specific Alto 1.009 (1.001-1.035) Urine Protein Negative (Negative) Urine Glucose (UA) Negative (Negative) Urine Ketones Negative (Negative) Urine Blood Negative (Negative) Urine Nitrite Negative (Negative) Urine Bilirubin Negative (Negative) Urine Urobilinogen <2.0 (<2.0) mg/dL Ur Leukocyte Esterase Large H (Negative) Urine RBC 2 (0-5) /hpf Urine WBC 37 H (0-5) /hpf Ur Squamous Epith Cells 2 (0-4) /hpf Urine Bacteria Rare H (None) /hpf Hyaline Casts 1 (0-2) /lpf Urine Mucus Rare H (None) /hpf 10/07/20 10/07/20 10/07/20 Range/Units 01:11 01:11 01:11 WBC (3.8-10.6) k/uL RBC (3.80-5.40) m/uL Hgb (11.4-16.0) gm/dL Hct (34.0-46.0) % MCV (80.0-100.0) fL MCH (25.0-35.0) pg MCHC (31.0-37.0) g/dL RDW (11.5-15.5) % Plt Count (150-450) k/uL MPV Neutrophils % % Lymphocytes % % Monocytes % % Eosinophils % % Basophils % % Neutrophils # (1.3-7.7) k/uL Lymphocytes # (1.0-4.8) k/uL Monocytes # (0-1.0) k/uL Eosinophils # (0-0.7) k/uL Basophils # (0-0.2) k/uL Sodium (137-145) mmol/L Potassium (3.5-5.1) mmol/L Chloride (98-107) mmol/L Carbon Dioxide (22-30) mmol/L Anion Gap mmol/L BUN (7-17) mg/dL Creatinine (0.52-1.04) mg/dL Est GFR (CKD-EPI)AfAm (>60 ml/min/1.73 sqM) Est GFR (CKD-EPI)NonAf (>60 ml/min/1.73 sqM) Glucose (74-99) mg/dL Plasma Lactic Acid Emanuel 0.7 (0.7-2.0) mmol/L Calcium (8.4-10.2) mg/dL Phosphorus (2.5-4.5) mg/dL Magnesium (1.6-2.3) mg/dL Total Bilirubin (0.2-1.3) mg/dL AST (14-36) U/L ALT (4-34) U/L Alkaline Phosphatase (38-126) U/L Creatine Kinase (30-135) U/L CK-MB (CK-2) 0.6 (0.0-2.4) ng/mL Troponin I <0.012 (0.000-0.034) ng/mL NT-Pro-B Natriuret Pep 32 pg/mL Total Protein (6.3-8.2) g/dL Albumin (3.5-5.0) g/dL Urine Color Urine Appearance (Clear) Urine pH (5.0-8.0) Ur Specific Alto (1.001-1.035) Urine Protein (Negative) Urine Glucose (UA) (Negative) Urine Ketones (Negative) Urine Blood (Negative) Urine Nitrite (Negative) Urine Bilirubin (Negative) Urine Urobilinogen (<2.0) mg/dL Ur Leukocyte Esterase (Negative) Urine RBC (0-5) /hpf Urine WBC (0-5) /hpf Ur Squamous Epith Cells (0-4) /hpf Urine Bacteria (None) /hpf Hyaline Casts (0-2) /lpf Urine Mucus (None) /hpf - Radiology Data Radiology results: report reviewed (Ultrasound OB does show positive healthy fetus heart rate of 138), image reviewed Disposition Clinical Impression: Fall, Head injury, Nasal contusion, Syncope and collapse, Ventricular tachycardia Disposition: HOME SELF-CARE Condition: Good Instructions (If sedation given, give patient instructions): Syncope (ED), Supraventricular Tachycardia (ED) Is patient prescribed a controlled substance at d/c from ED?: No Referrals: Angel Becker MD [Primary Care Provider] - 1-2 days
[2020-10-07 01:25] LABS: Basophils % (A) 0 %; Eosinophils # (A) 0.1 k/uL (0-0.7); Eosinophils % (A) 1 %; HCT 33.7 % (34.0-46.0); Lymphocytes # (A) 1.8 k/uL (1.0-4.8); Lymphocytes % (A) 19 %; MCH 30.7 pg (25.0-35.0); MCHC 35.7 g/dL (31.0-37.0); MCV 85.9 fL (80.0-100.0); Mean Platelet Volume 7.3; Monocytes # (A) 0.5 k/uL (0-1.0); Monocytes % (A) 6 %; Neutrophils # (A) 6.9 k/uL (1.3-7.7); Neutrophils % (A) 73 %; Platelet Count 205 k/uL (150-450); RBC 3.92 m/uL (3.80-5.40); RDW 12.6 % (11.5-15.5); WBC 9.5 k/uL (3.8-10.6)
[2020-10-07 01:51] LABS: ALT 8 U/L (4-34); AST 19 U/L (14-36); African American GFR (CKD) >90 (>60 ml/min/1.73 sqM); Albumin 3.7 g/dL (3.5-5.0); Alkaline Phosphatase 57 U/L (38-126); Anion Gap 10 mmol/L; Blood Urea Nitrogen 9 mg/dL (7-17); Calcium 9.2 mg/dL (8.4-10.2); Carbon Dioxide 20 mmol/L (22-30); Chloride 106 mmol/L (98-107); Creatine Kinase 50 U/L (30-135); Glucose 88 mg/dL (74-99); Magnesium 1.6 mg/dL (1.6-2.3); Non-African American GFR(CKD) >90 (>60 ml/min/1.73 sqM); Phosphorus 4.1 mg/dL (2.5-4.5); Potassium 3.9 mmol/L (3.5-5.1); Sodium 136 mmol/L (137-145); Total Bilirubin 0.3 mg/dL (0.2-1.3); Total Protein 6.2 g/dL (6.3-8.2)
[2020-10-07 02:02] LABS: Creatine Kinase MB 0.6 ng/mL (0.0-2.4); Troponin I <0.012 ng/mL (0.000-0.034)
[2020-10-07 02:06] LABS: Appearance,Urine Clear (Clear); Bacteria,Urine Rare /hpf; Bilirubin,Urine Negative (Negative); Blood,Urine Negative (Negative); Color,Urine Light Yellow; Glucose,Urine (UA) Negative (Negative); Hyaline Casts,Urine 1 /lpf (0-2); Ketones,Urine Negative (Negative); Leukocyte Esterase,Urine Large (Negative); Mucus,Urine Rare /hpf; Nitrite,Urine Negative (Negative); PH, Urine 6.5 (5.0-8.0); Protein,Urine Negative (Negative); RBC,Urine 2 /hpf (0-5); Specific Gravity,Urine 1.009 (1.001-1.035); Squamous Epithelial Cell,Urine 2 /hpf (0-4); Urobilinogen,Urine <2.0 mg/dL (<2.0); WBC,Urine 37 /hpf (0-5)
[2020-10-07 02:09] VITALS: RESP 16
[2020-10-07] MEDS ORDERED: MAGNESIUM OXIDE 400 MG TAB PO STA (04:40)
[2020-10-07] MEDS ORDERED: POTASSIUM BICARBONATE/CIT AC 20 MEQ TABLET.EFF PO ONE (04:45)
[2020-10-07 04:50] VITALS: BP 107/64; PULSE 74; TEMP 98.6
--- NOTE | 2020-10-07 11:17 | US ---
EXAMINATION TYPE: US OB >= 14 wk fetus DATE OF EXAM: 10/07/2020 COMPARISON: US 05/05/2020 CLINICAL HISTORY: , syncope TECHNIQUE: Transabdominal (TA) GESTATIONAL AGE / DATING Physician Established: (28 weeks/3 days) EDC: 12/27/2020 Dates by First Scan: (28 weeks/3 days) EDC: 12/27/2020 Dates by Current Scan: (28 weeks/2 days) EDC: 12/28/2020 SURVEY IUP: Single PLACENTA: Anterior PREVIA: No Previa RAZA: 14.9 cm Normal CERVICAL LENGTH (transabdominal: norm > 3.0cm): 3.8 cm BIOMETRY PRESENTATION: Vertex LIE: Longitudinal BPD: 7.1 cm 28 weeks / 5 days HC: 26.25 cm 28 weeks / 4 days AC: 24.6 cm 28 weeks / 6 days FL: 5.3 cm 28 weeks / 3 days ESTIMATED WEIGHT IN GRAMS: 1283 grams ESTIMATED WEIGHT IN LBS/OZ: 2 lbs. 13 oz. WEIGHT PERCENTAGE BASED ON ESTABLISHED DATES: 50.5% FL/AC: 21.7 Normal HEART RATE: 139 bpm RHYTHM: Normal Viable IUP, measurements consistent with dates. Placental huang visualized measuring 1.6 x 0.9 x 2.2 c m IMPRESSION: Viable IUP, measurements consistent with dates. Placental huang visualized measuring 1.6 x 0.9 x 2.2 c m
== END 2020-10-07 05:25 | disposition home or self-care (01) ==
LOC: SUPCPDRO 01:01 → EC 01:01
DX: O09.93 Supervision of high risk pregnancy, unspecified, third trimester (principal); O9A.213 Injury, poisoning and certain other consequences of external causes complicating pregnancy, third trimester; O99.413 Diseases of the circulatory system complicating pregnancy, third trimester; O99.891 Other specified diseases and conditions complicating pregnancy; O26.893 Other specified pregnancy related conditions, third trimester; S00.33XA Contusion of nose, initial encounter; S09.90XA Unspecified injury of head, initial encounter; R55 Syncope and collapse; I47.2 Ventricular tachycardia; H54.8 Legal blindness, as defined in USA; Z3A.28 28 weeks gestation of pregnancy; Z86.74 Personal history of sudden cardiac arrest; Z95.810 Presence of automatic (implantable) cardiac defibrillator; W19.XXXA Unspecified fall, initial encounter; Y92.009 Unspecified place in unspecified non-institutional (private) residence as the place of occurrence of the external cause
CPT/HCPCS: 36415; 76805; 80053; 81001; 82550; 82553; 83605; 83735; 83880; 84100; 84484; 85025; 87086; 93005; 96360; 96361; 99284

== ENCOUNTER 2020-11-03 15:55 | Outpatient (CLI) | payer OTHER ==
[2020-11-03 16:57] VITALS: BP 119/63; PULSE 92; RESP 16; TEMP 97.6
--- NOTE | 2020-11-13 21:59 | P.MSEPDOC ---
Presenting Problems - Arrival Data Date of Arrival on Unit: 11/03/20 Time of Arrival on Unit: 15:55 Mode of Transport: Ambulatory - Complaint OB-Reason for Admission/Chief Complaint: Possible Onset of Labor Comment: pelvic pressure and "checked" herself and felt baby's head low in pelvis Medical History - Information : 6 Para: 3 Term: 3 : 0 Abortions: Spontaneous or Elective: 2 Number of Living Children: 3 - Gestational Age Gestational Age by KWADWO (wks/days): 32 Weeks and 2 Days - History Comment: long QT syndrome Review of Systems - Review of Systems Constitutional: No problems Breast: No problems ENT: No problems Cardiovascular: No problems Respiratory: No problems Gastrointestinal: No problems Genitourinary: No problems Musculoskeletal: No problems Neurological: No problems Skin: No problems Vital Signs - Temperature Temperature: 97.6 F Temperature Source: Temporal Artery Scan - Pulse Right Sitting Pulse Rate: 92 Pulse Assessment Method: Automatic Cuff - Respirations Respiratory Rate: 16 Oxygen Delivery Method: Room Air - Blood Pressure Right Arm Blood Pressure: 119/63 Blood Pressure Mean: 81 Blood Pressure Source: Automatic Cuff Medical Screen Scoring - Cervical Exam Dilation (cm): 1 Membranes: Intact - Uterine Contractions Frequency From (mins): 0 Frequency To (mins): 0 - Assessment - Baby A Baseline FHR: 120 Heart Rate - NICHD Category: Category I (Normal) NST: Reactive Physician Notification - Physician Notified Physician Notified Date: 11/03/20 Physician Notified Time: 16:33 Physician: Angela Gonzalez Order Received: Yes (d/c home) Maternal Triage Index - Non-Urgent/Priority 4 Non-Urgent Priority 4: Yes Criteria Met for Priority 4: no contractions, reactive nst Disposition - Disposition OB Disposition: Discharge to home Discharge Date: 11/03/20 Discharge Time: 16:43 I agree with the RN Medical Screening Exam: Yes Case reviewed; plan agreed upon as documented in EMR&OBIX.: Yes Diagnosis: FALSE LABOR BEFORE 37 COMPLETED WEEKS OF GEST, THIRD TRI
== END 2020-11-03 16:43 | disposition home or self-care (01) ==
LOC: FBPOP 15:55
PROVIDERS: ATTEND Obstetrics & Gynecology
DX: O47.03 False labor before 37 completed weeks of gestation, third trimester (principal); Z3A.32 32 weeks gestation of pregnancy
CPT/HCPCS: 59025; G0463; 99213

== ENCOUNTER 2021-02-14 13:21 | Emergency (ER) | payer OTHER ==
[2021-02-14] MEDS ORDERED: SODIUM CHLORIDE 0.9% 1,000 ML IV STA (14:06)
[2021-02-14 14:36] LABS: Appearance,Urine Turbid (Clear); Bacteria,Urine Rare /hpf; Bilirubin,Urine Negative (Negative); Blood,Urine Large (Negative); Budding Yeast,Urine Many /hpf; Color,Urine Red; Glucose,Urine (UA) Negative (Negative); Ketones,Urine Negative (Negative); Leukocyte Esterase,Urine Large (Negative); Nitrite,Urine Negative (Negative); PH, Urine 5.5 (5.0-8.0); Protein,Urine 2+ (Negative); RBC,Urine >182 /hpf (0-5); Specific Gravity,Urine 1.019 (1.001-1.035); Squamous Epithelial Cell,Urine 2 /hpf (0-4); Urobilinogen,Urine <2.0 mg/dL (<2.0); WBC,Urine >182 /hpf (0-5)
[2021-02-14 14:42] LABS: ALT 17 U/L (4-34); AST 25 U/L (14-36); African American GFR (CKD) >90 (>60 ml/min/1.73 sqM); Albumin 4.6 g/dL (3.5-5.0); Alkaline Phosphatase 51 U/L (38-126); Amylase 78 U/L (30-110); Anion Gap 10 mmol/L; Blood Urea Nitrogen 11 mg/dL (7-17); Calcium 9.7 mg/dL (8.4-10.2); Carbon Dioxide 22 mmol/L (22-30); Chloride 106 mmol/L (98-107); Glucose 90 mg/dL (74-99); Lipase 81 U/L (23-300); Non-African American GFR(CKD) >90 (>60 ml/min/1.73 sqM); Partial Thromboplastin Time 24.5 sec (22.0-30.0); Potassium 4.2 mmol/L (3.5-5.1); Prothrombin Time 10.4 sec (9.0-12.0); Sodium 138 mmol/L (137-145); Total Bilirubin 0.8 mg/dL (0.2-1.3); Total Protein 7.2 g/dL (6.3-8.2)
--- NOTE | 2021-02-14 14:44 | ED ---
General Adult HPI - General Chief complaint: Urogenital Stated complaint: blood in urine Time Seen by Provider: 02/14/21 13:58 Source: patient, RN notes reviewed, old records reviewed Mode of arrival: ambulatory Limitations: no limitations - History of Present Illness Initial comments: 25-year-old female presenting with hematuria and dysuria. Patient had ureteral stent placed in early November at outside hospital. She's been on prophylactic antibiotics since that time. She has been lost to follow-up with her urologist out of [facility] in [place]. She had 1 follow-up appointment but has been delayed and stent removal. She believes a stent was placed for obstructive kidney stone. She was at the time and has since delivered. She has no vaginal bleeding or vaginal discharge. She has hematuria and dysuria. No reported fevers. She has nausea and flank pain as well. - Related Data Home Medications Medication Instructions Recorded Confirmed Metoprolol Succinate (ER) [Toprol 50 mg PO HS 03/12/20 11/03/20 Xl] Cholecalciferol [Vitamin D3 (25 50 mcg PO HS 07/25/20 11/03/20 Mcg = 1000 Iu)] Doxylamine Succinate [Unisom] 25 mg PO HS PRN 07/25/20 11/03/20 Famotidine [Pepcid] 20 mg PO BID 07/25/20 11/03/20 Folic Acid 0.4 mg PO DAILY 07/25/20 11/03/20 Vitamin B-6 25mg 25 mg PO BID 07/25/20 11/03/20 Allergies Allergy/AdvReac Type Severity Reaction Status Date / Time No Known Allergies Allergy Verified 02/14/21 13:35 Review of Systems ROS Statement: Those systems with pertinent positive or pertinent negative responses have been documented in the HPI. ROS Other: All systems not noted in ROS Statement are negative. 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 History of cardiac arrest in 2010. History of Any Multi-Drug Resistant Organisms: None Reported Past Surgical History: AICD, Pacemaker Past Anesthesia/Blood Transfusion Reactions: Motion Sickness Additional Past Anesthesia/Blood Transfusion Reaction / Comment(s): Pt has clausterphobia. Type of Cardiac Device: Permanent Pacemaker, AICD Device Placement Date:: 08/03/10 Past Psychological History: No Psychological Hx Reported Smoking Status: Never smoker Past Alcohol Use History: None Reported Past Drug Use History: Marijuana - Past Family History Father Family Medical History: No Reported History Additional Family Medical History / Comment(s): Father is healthy Mother Family Medical History: Asthma, Thyroid Disorder General Exam Limitations: no limitations General appearance: alert, in no apparent distress Head exam: Present: atraumatic, normocephalic Eye exam: Present: normal appearance, PERRL ENT exam: Present: normal exam Neck exam: Present: normal inspection. Absent: tenderness, meningismus Respiratory exam: Present: normal lung sounds bilaterally. Absent: respiratory distress, wheezes Cardiovascular Exam: Present: regular rate, normal rhythm GI/Abdominal exam: Present: soft. Absent: distended, tenderness, guarding Extremities exam: Present: normal inspection, normal capillary refill Back exam: Absent: CVA tenderness (R), CVA tenderness (L) Neurological exam: Present: alert, oriented X3, CN II-XII intact Psychiatric exam: Present: normal affect, normal mood Skin exam: Present: warm, dry, intact. Absent: cyanosis, diaphoretic Course Vital Signs 02/14/21 13:35 Temperature 98.1 F Pulse Rate 70 Respiratory 18 Rate Blood Pressure 129/84 O2 Sat by Pulse 100 Oximetry Medical Decision Making - Medical Decision Making 25-year-old female with dysuria. Urine testing is consistent with hemorrhagic cystitis and urinary tract infection. Patient has a normal CBC without leukocytosis, stable hemoglobin, normal x-rays, normal kidney function. KUB showing stent placed in the left ureter with no other acute findings. Ultrasound performed of the kidney shows improved hydronephrosis on the left. I did discuss the case with Dr. Graf, , recommending close outpatient follow-up at this time. The patient is provided follow-up and the office staff have been notified. Return parameters were discussed. Patient will take Tylenol Motrin for pain and discomfort. She will continue antibiotics as prescribed. Repeat urine culture is pending. - Lab Data Result diagrams: 02/14/21 14:14 02/14/21 14:14 Lab Results 02/14/21 02/14/21 02/14/21 Range/Units 14:14 14:14 14:14 WBC 7.3 (3.8-10.6) k/uL RBC 4.47 (3.80-5.40) m/uL Hgb 12.7 (11.4-16.0) gm/dL Hct 37.9 (34.0-46.0) % MCV 84.8 (80.0-100.0) fL MCH 28.5 (25.0-35.0) pg MCHC 33.6 (31.0-37.0) g/dL RDW 12.8 (11.5-15.5) % Plt Count 284 (150-450) k/uL MPV 7.2 Neutrophils % 68 % Lymphocytes % 24 % Monocytes % 5 % Eosinophils % 1 % Basophils % 0 % Neutrophils # 5.0 (1.3-7.7) k/uL Lymphocytes # 1.8 (1.0-4.8) k/uL Monocytes # 0.3 (0-1.0) k/uL Eosinophils # 0.1 (0-0.7) k/uL Basophils # 0.0 (0-0.2) k/uL PT 10.4 (9.0-12.0) sec INR 1.0 (<1.2) APTT 24.5 (22.0-30.0) sec Sodium (137-145) mmol/L Potassium (3.5-5.1) mmol/L Chloride (98-107) mmol/L Carbon Dioxide (22-30) mmol/L Anion Gap mmol/L BUN (7-17) mg/dL Creatinine (0.52-1.04) mg/dL Est GFR (CKD-EPI)AfAm (>60 ml/min/1.73 sqM) Est GFR (CKD-EPI)NonAf (>60 ml/min/1.73 sqM) Glucose (74-99) mg/dL Plasma Lactic Acid Emanuel (0.7-2.0) mmol/L Calcium (8.4-10.2) mg/dL Total Bilirubin (0.2-1.3) mg/dL AST (14-36) U/L ALT (4-34) U/L Alkaline Phosphatase (38-126) U/L Total Protein (6.3-8.2) g/dL Albumin (3.5-5.0) g/dL Amylase (30-110) U/L Lipase (23-300) U/L Urine Color Red Urine Appearance Turbid H (Clear) Urine pH 5.5 (5.0-8.0) Ur Specific Custer 1.019 (1.001-1.035) Urine Protein 2+ H (Negative) Urine Glucose (UA) Negative (Negative) Urine Ketones Negative (Negative) Urine Blood Large H (Negative) Urine Nitrite Negative (Negative) Urine Bilirubin Negative (Negative) Urine Urobilinogen <2.0 (<2.0) mg/dL Ur Leukocyte Esterase Large H (Negative) Urine RBC >182 H (0-5) /hpf Urine WBC >182 H (0-5) /hpf Urine WBC Clumps Few H (None) /hpf Ur Squamous Epith Cells 2 (0-4) /hpf Urine Bacteria Rare H (None) /hpf Urine Yeast (Budding) Many H (None) /hpf Urine HCG, Qual (Not Detectd) 02/14/21 02/14/21 02/14/21 Range/Units 14:14 14:14 14:14 WBC (3.8-10.6) k/uL RBC (3.80-5.40) m/uL Hgb (11.4-16.0) gm/dL Hct (34.0-46.0) % MCV (80.0-100.0) fL MCH (25.0-35.0) pg MCHC (31.0-37.0) g/dL RDW (11.5-15.5) % Plt Count (150-450) k/uL MPV Neutrophils % % Lymphocytes % % Monocytes % % Eosinophils % % Basophils % % Neutrophils # (1.3-7.7) k/uL Lymphocytes # (1.0-4.8) k/uL Monocytes # (0-1.0) k/uL Eosinophils # (0-0.7) k/uL Basophils # (0-0.2) k/uL PT (9.0-12.0) sec INR (<1.2) APTT (22.0-30.0) sec Sodium 138 (137-145) mmol/L Potassium 4.2 (3.5-5.1) mmol/L Chloride 106 (98-107) mmol/L Carbon Dioxide 22 (22-30) mmol/L Anion Gap 10 mmol/L BUN 11 (7-17) mg/dL Creatinine 0.76 (0.52-1.04) mg/dL Est GFR (CKD-EPI)AfAm >90 (>60 ml/min/1.73 sqM) Est GFR (CKD-EPI)NonAf >90 (>60 ml/min/1.73 sqM) Glucose 90 (74-99) mg/dL Plasma Lactic Acid Emanuel 0.7 (0.7-2.0) mmol/L Calcium 9.7 (8.4-10.2) mg/dL Total Bilirubin 0.8 (0.2-1.3) mg/dL AST 25 (14-36) U/L ALT 17 (4-34) U/L Alkaline Phosphatase 51 (38-126) U/L Total Protein 7.2 (6.3-8.2) g/dL Albumin 4.6 (3.5-5.0) g/dL Amylase 78 (30-110) U/L Lipase 81 (23-300) U/L Urine Color Urine Appearance (Clear) Urine pH (5.0-8.0) Ur Specific Custer (1.001-1.035) Urine Protein (Negative) Urine Glucose (UA) (Negative) Urine Ketones (Negative) Urine Blood (Negative) Urine Nitrite (Negative) Urine Bilirubin (Negative) Urine Urobilinogen (<2.0) mg/dL Ur Leukocyte Esterase (Negative) Urine RBC (0-5) /hpf Urine WBC (0-5) /hpf Urine WBC Clumps (None) /hpf Ur Squamous Epith Cells (0-4) /hpf Urine Bacteria (None) /hpf Urine Yeast (Budding) (None) /hpf Urine HCG, Qual Not Detected (Not Detectd) Disposition Clinical Impression: Hydronephrosis concurrent with and due to calculi of kidney and ureter, UTI (urinary tract infection), Dysuria Disposition: HOME SELF-CARE Condition: Good Instructions (If sedation given, give patient instructions): Urinary Tract Infection in Women (ED) Additional Instructions: Please continue antibiotics. Please follow-up with urology Is patient prescribed a controlled substance at d/c from ED?: No Referrals: Angel Becker MD [Primary Care Provider] - 1-2 days Jorje Graf MD [STAFF PHYSICIAN] - 1-2 days Time of Disposition: 16:05
[2021-02-14 15:04] LABS: Basophils % (A) 0 %; Eosinophils # (A) 0.1 k/uL (0-0.7); Eosinophils % (A) 1 %; HCT 37.9 % (34.0-46.0); HGB 12.7 gm/dL (11.4-16.0); Lymphocytes # (A) 1.8 k/uL (1.0-4.8); Lymphocytes % (A) 24 %; MCH 28.5 pg (25.0-35.0); MCHC 33.6 g/dL (31.0-37.0); MCV 84.8 fL (80.0-100.0); Mean Platelet Volume 7.2; Monocytes # (A) 0.3 k/uL (0-1.0); Monocytes % (A) 5 %; Neutrophils % (A) 68 %; Platelet Count 284 k/uL (150-450); RBC 4.47 m/uL (3.80-5.40); RDW 12.8 % (11.5-15.5); WBC 7.3 k/uL (3.8-10.6)
--- NOTE | 2021-02-14 15:20 | US ---
EXAMINATION TYPE: US kidneys/renal and bladder DATE OF EXAM: 02/14/2021 COMPARISON: 09/17/2020 CLINICAL HISTORY: Flank pain and hematuria. gross hematuria, h/o stones, left renal stent placed in A ugust 2020 and is still in, left flank pain EXAM MEASUREMENTS: Right Kidney: 10.9 x 4.8 x 4.4 cm Left Kidney: 13.2 x 5.6 x 4.5 cm Right Kidney: No hydronephrosis or masses seen Left Kidney: Mild hydronephrosis, enlarged, known stent within left renal Bladder: not distended . IMPRESSION: There is left side hydronephrosis which appears improved compared to old exam. No evidence of a solid renal mass. No renal atrophy.
--- NOTE | 2021-02-14 15:33 | XR ---
EXAMINATION TYPE: XR KUB DATE OF EXAM: 02/14/2021 COMPARISON: NONE HISTORY: Hematuria TECHNIQUE: 2 views FINDINGS: Bowel gas pattern is normal. There is no sign of intestinal obstruction or pneumoperitoneum . Fecal pattern is normal. There is left side ureteral stent. There is IUD noted in the uterus. There are no pathologic calcifications over the kidneys. Lung bases are clear. IMPRESSION: Nonacute abdomen.
[2021-02-14 16:42] VITALS: BP 126/74; PULSE 57; RESP 16; TEMP 98.4
== END 2021-02-14 16:41 | disposition home or self-care (01) ==
LOC: EC 13:21
DX: N39.0 Urinary tract infection, site not specified (principal); N13.2 Hydronephrosis with renal and ureteral calculous obstruction; H54.8 Legal blindness, as defined in USA; Z86.74 Personal history of sudden cardiac arrest; Z95.0 Presence of cardiac pacemaker
CPT/HCPCS: 36415; 74018; 76770; 80053; 81001; 81025; 82150; 83605; 83690; 85025; 85610; 85730; 87086; 96360; 99284

== ENCOUNTER 2021-02-20 07:43 | Observation (INO) | payer OTHER ==
[2021-02-20] MEDS ORDERED: SODIUM CHLORIDE 0.9% 1,000 ML IV STA (08:05)
[2021-02-20] MEDS ORDERED: ONDANSETRON 4 MG/2 ML VIAL IVP STA (08:05)
[2021-02-20] MEDS ORDERED: KETOROLAC 15 MG/ML 1 ML VIAL IVP STA (08:05)
--- NOTE | 2021-02-20 08:10 | ED ---
General Adult HPI - General Chief complaint: Fever Stated complaint: post procedure fever, pain Source: patient Mode of arrival: wheelchair Limitations: no limitations - History of Present Illness Initial comments: Patient is 25-year-old female presented to the ED for post procedure fever. Patient states that Monday she had stent removed from left kidney that was placed for kidney stones, patient was instructed to follow-up in ED if she spiked a fever. Patient states that starting last night had fever with chills nausea and vomiting. Patient denies any cough congestion pain changes in bowel movements or urination at this time. Patient is currently care with urology. Patient states they have been switching antibiotic course for known UTI. Patient reports left-sided flank pain is made worse with movement patient rates pain 10 out of 10. - Related Data Home Medications Medication Instructions Recorded Confirmed Metoprolol Succinate (ER) [Toprol 50 mg PO HS 03/12/20 02/20/21 Xl] Doxycycline Monohydrate 100 mg PO BID 02/20/21 02/20/21 Allergies Allergy/AdvReac Type Severity Reaction Status Date / Time No Known Allergies Allergy Verified 02/20/21 09:02 Review of Systems ROS Statement: Those systems with pertinent positive or pertinent negative responses have been documented in the HPI. ROS Other: All systems not noted in ROS Statement are negative. 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 History of cardiac arrest in 2010, kidney stones History of Any Multi-Drug Resistant Organisms: None Reported Past Surgical History: AICD, Pacemaker Additional Past Surgical History / Comment(s): kidney stent and temoval Past Anesthesia/Blood Transfusion Reactions: Motion Sickness Additional Past Anesthesia/Blood Transfusion Reaction / Comment(s): Pt has clausterphobia. Type of Cardiac Device: Permanent Pacemaker, AICD Device Placement Date:: 08/03/10 Past Psychological History: No Psychological Hx Reported Smoking Status: Never smoker Past Alcohol Use History: None Reported Past Drug Use History: Marijuana - Past Family History Father Family Medical History: No Reported History Additional Family Medical History / Comment(s): Father is healthy Mother Family Medical History: Asthma, Thyroid Disorder General Exam Limitations: no limitations General appearance: alert, in no apparent distress Respiratory exam: Present: normal lung sounds bilaterally. Absent: respiratory distress, wheezes, rales, rhonchi, stridor Cardiovascular Exam: Present: regular rate, normal rhythm, normal heart sounds. Absent: systolic murmur, diastolic murmur, rubs, gallop, clicks GI/Abdominal exam: Present: soft, normal bowel sounds. Absent: distended, tenderness, guarding, rebound, rigid Back exam: Present: CVA tenderness (L) Neurological exam: Present: alert, oriented X3 Skin exam: Present: warm, dry, intact, normal color. Absent: rash Course Vital Signs 02/20/21 02/20/21 07:52 10:13 Temperature 101.2 F H 100.0 F H Pulse Rate 102 H 89 Respiratory 18 16 Rate Blood Pressure 117/69 122/70 O2 Sat by Pulse 99 98 Oximetry Medical Decision Making - Medical Decision Making 25-year-old presented for flank pain. Patient has evidence of pyelonephritis, hydroureter patient will be admitted for IV antibiotics, further treatment and management. - Lab Data Result diagrams: 02/20/21 08:19 02/20/21 08:19 Lab Results 02/20/21 02/20/21 02/20/21 Range/Units 08:19 08:19 08:19 WBC 18.6 H (3.8-10.6) k/uL RBC 4.38 (3.80-5.40) m/uL Hgb 12.3 (11.4-16.0) gm/dL Hct 36.8 (34.0-46.0) % MCV 83.9 (80.0-100.0) fL MCH 28.1 (25.0-35.0) pg MCHC 33.4 (31.0-37.0) g/dL RDW 13.2 (11.5-15.5) % Plt Count 264 (150-450) k/uL MPV 7.1 Neutrophils % 92 % Lymphocytes % 3 % Monocytes % 4 % Eosinophils % 0 % Basophils % 0 % Neutrophils # 17.0 H (1.3-7.7) k/uL Lymphocytes # 0.6 L (1.0-4.8) k/uL Monocytes # 0.8 (0-1.0) k/uL Eosinophils # 0.0 (0-0.7) k/uL Basophils # 0.0 (0-0.2) k/uL Sodium (137-145) mmol/L Potassium (3.5-5.1) mmol/L Chloride (98-107) mmol/L Carbon Dioxide (22-30) mmol/L Anion Gap mmol/L BUN (7-17) mg/dL Creatinine (0.52-1.04) mg/dL Est GFR (CKD-EPI)AfAm (>60 ml/min/1.73 sqM) Est GFR (CKD-EPI)NonAf (>60 ml/min/1.73 sqM) Glucose (74-99) mg/dL Calcium (8.4-10.2) mg/dL Total Bilirubin (0.2-1.3) mg/dL AST (14-36) U/L ALT (4-34) U/L Alkaline Phosphatase (38-126) U/L Total Protein (6.3-8.2) g/dL Albumin (3.5-5.0) g/dL Amylase (30-110) U/L Lipase (23-300) U/L Urine Color Yellow Urine Appearance Clear (Clear) Urine pH 7.0 (5.0-8.0) Ur Specific Springer 1.021 (1.001-1.035) Urine Protein 1+ H (Negative) Urine Glucose (UA) Negative (Negative) Urine Ketones 3+ H (Negative) Urine Blood Large H (Negative) Urine Nitrite Negative (Negative) Urine Bilirubin Negative (Negative) Urine Urobilinogen <2.0 (<2.0) mg/dL Ur Leukocyte Esterase Small H (Negative) Urine RBC >182 H (0-5) /hpf Urine WBC 24 H (0-5) /hpf Ur Squamous Epith Cells <1 (0-4) /hpf Urine Mucus Rare H (None) /hpf Urine HCG, Qual Not Detected (Not Detectd) 02/20/21 Range/Units 08:19 WBC (3.8-10.6) k/uL RBC (3.80-5.40) m/uL Hgb (11.4-16.0) gm/dL Hct (34.0-46.0) % MCV (80.0-100.0) fL MCH (25.0-35.0) pg MCHC (31.0-37.0) g/dL RDW (11.5-15.5) % Plt Count (150-450) k/uL MPV Neutrophils % % Lymphocytes % % Monocytes % % Eosinophils % % Basophils % % Neutrophils # (1.3-7.7) k/uL Lymphocytes # (1.0-4.8) k/uL Monocytes # (0-1.0) k/uL Eosinophils # (0-0.7) k/uL Basophils # (0-0.2) k/uL Sodium 137 (137-145) mmol/L Potassium 3.5 (3.5-5.1) mmol/L Chloride 105 (98-107) mmol/L Carbon Dioxide 18 L (22-30) mmol/L Anion Gap 14 mmol/L BUN 10 (7-17) mg/dL Creatinine 0.77 (0.52-1.04) mg/dL Est GFR (CKD-EPI)AfAm >90 (>60 ml/min/1.73 sqM) Est GFR (CKD-EPI)NonAf >90 (>60 ml/min/1.73 sqM) Glucose 108 H (74-99) mg/dL Calcium 9.5 (8.4-10.2) mg/dL Total Bilirubin 1.7 H (0.2-1.3) mg/dL AST 19 (14-36) U/L ALT 12 (4-34) U/L Alkaline Phosphatase 52 (38-126) U/L Total Protein 7.2 (6.3-8.2) g/dL Albumin 4.4 (3.5-5.0) g/dL Amylase 68 (30-110) U/L Lipase 55 (23-300) U/L Urine Color Urine Appearance (Clear) Urine pH (5.0-8.0) Ur Specific Springer (1.001-1.035) Urine Protein (Negative) Urine Glucose (UA) (Negative) Urine Ketones (Negative) Urine Blood (Negative) Urine Nitrite (Negative) Urine Bilirubin (Negative) Urine Urobilinogen (<2.0) mg/dL Ur Leukocyte Esterase (Negative) Urine RBC (0-5) /hpf Urine WBC (0-5) /hpf Ur Squamous Epith Cells (0-4) /hpf Urine Mucus (None) /hpf Urine HCG, Qual (Not Detectd) Disposition Clinical Impression: Pyelonephritis Disposition: ADMITTED IP TO THIS [facility] Condition: Fair Referrals: Angel Becker MD [Primary Care Provider] - 1-2 days
[2021-02-20] MEDS ORDERED: ACETAMINOPHEN TAB 500 MG TAB PO STA (08:12)
[2021-02-20] MEDS ORDERED: LORazepam 2 MG/ML INJ IV STA (08:28)
[2021-02-20] MEDS ORDERED: diphenhydrAMINE 50 MG/ML 1 ML VIAL IVP STA (08:28)
[2021-02-20 08:43] LABS: Basophils % (A) 0 %; Eosinophils % (A) 0 %; HCT 36.8 % (34.0-46.0); HGB 12.3 gm/dL (11.4-16.0); Lymphocytes # (A) 0.6 k/uL (1.0-4.8); Lymphocytes % (A) 3 %; MCH 28.1 pg (25.0-35.0); MCHC 33.4 g/dL (31.0-37.0); MCV 83.9 fL (80.0-100.0); Mean Platelet Volume 7.1; Monocytes # (A) 0.8 k/uL (0-1.0); Monocytes % (A) 4 %; Neutrophils % (A) 92 %; Platelet Count 264 k/uL (150-450); RBC 4.38 m/uL (3.80-5.40); RDW 13.2 % (11.5-15.5); WBC 18.6 k/uL (3.8-10.6)
[2021-02-20 09:10] LABS: Appearance,Urine Clear (Clear); Bilirubin,Urine Negative (Negative); Blood,Urine Large (Negative); Color,Urine Yellow; Glucose,Urine (UA) Negative (Negative); Ketones,Urine 3+ (Negative); Leukocyte Esterase,Urine Small (Negative); Mucus,Urine Rare /hpf; Nitrite,Urine Negative (Negative); Protein,Urine 1+ (Negative); RBC,Urine >182 /hpf (0-5); Specific Gravity,Urine 1.021 (1.001-1.035); Squamous Epithelial Cell,Urine <1 /hpf (0-4); Urobilinogen,Urine <2.0 mg/dL (<2.0); WBC,Urine 24 /hpf (0-5)
[2021-02-20 09:11] LABS: ALT 12 U/L (4-34); AST 19 U/L (14-36); African American GFR (CKD) >90 (>60 ml/min/1.73 sqM); Albumin 4.4 g/dL (3.5-5.0); Alkaline Phosphatase 52 U/L (38-126); Amylase 68 U/L (30-110); Anion Gap 14 mmol/L; Blood Urea Nitrogen 10 mg/dL (7-17); Calcium 9.5 mg/dL (8.4-10.2); Carbon Dioxide 18 mmol/L (22-30); Chloride 105 mmol/L (98-107); Glucose 108 mg/dL (74-99); Lipase 55 U/L (23-300); Non-African American GFR(CKD) >90 (>60 ml/min/1.73 sqM); Potassium 3.5 mmol/L (3.5-5.1); Sodium 137 mmol/L (137-145); Total Bilirubin 1.7 mg/dL (0.2-1.3); Total Protein 7.2 g/dL (6.3-8.2)
--- NOTE | 2021-02-20 10:01 | CT ---
EXAMINATION TYPE: CT abdomen pelvis wo con DATE OF EXAM: 02/20/2021 COMPARISON: None HISTORY: left flank pain post renal stent removal CT DLP: 574.6 mGycm Examination of the solid and hollow viscera is limited given the lack of contrast. FINDINGS: LUNG BASES: No evidence for nodule. No evidence for infiltrate. LIVER/GB: The gallbladder is unremarkable. No space-occupying hepatic lesion. PANCREAS: No pancreatic mass identified. No inflammatory process seen. SPLEEN: No evidence for splenomegaly. No intrasplenic lesions seen. ADRENALS: No adrenal nodules identified. No evidence for thickening. KIDNEYS: There is moderate left-sided hydroureteronephrosis however obstructing calculus is not seen with certainty. There are 2 what appear to be phleboliths adjacent to the distal left ureter. There i s renal edema and underlying infection is not excluded. Consider recently passed calculus. Correlate clinically. Several additional sub-3 mm nonobstructing calculi left kidney. The right kidney demonstr ates 2 nonobstructing calculi the largest measuring 8 mm. BOWEL: Appendix has a normal appearance. No evidence of bowel obstruction. No inflammatory process. Lymph nodes: No evidence for adenopathy greater than 1 cm. Abdominal aorta: Atheromatous changes seen. No evidence for aneurysm. Genital organs: IUD is in place. Other: No significant abnormality. IMPRESSION: There is moderate left-sided hydroureteronephrosis however obstructing calculus is not seen with cert ainty. There are 2 what appear to be phleboliths adjacent to the distal left ureter. There is renal e carla and underlying infection is not excluded. Consider recently passed calculus. Correlate clinicall y.
[2021-02-20] MEDS ORDERED: NALOXONE 0.4 MG/ML 1 ML VIAL IV PRN (10:41)
[2021-02-20] MEDS ORDERED: ACETAMINOPHEN TAB 325 MG TAB PO PRN (10:41)
[2021-02-20] MEDS: SODIUM CHLORIDE 0.9% 1,000 ML IV SCH ×2 (11:04→18:10)
[2021-02-20] MEDS: HYDROmorphone 0.5 MG/0.5 ML SYRINGE IVP PRN ×3 (11:04→19:19)
--- NOTE | 2021-02-20 12:55 | P.HPIM ---
History of Present Illness H&P Date: 02/20/21 This is a 25-year-old female with complex past medical history noted below significant for recurrent history hydronephrosis requiring stent placement to the left ureter. Apparently stent was removed on Monday and last night, patient started having fevers and chills associated with nausea and vomiting. She presented to the ER today and was found to be septic without septic shock. Computed tomography scan of the abdomen and pelvis done in the ER was reviewed by me. Patient will be admitted to the hospital for urology evaluation and IV antibiotic. Review of Systems Review of system: 14 points review of systems were obtained and were negative except to what were mentioned in the HPI. 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 History of cardiac arrest in 2010, kidney stones History of Any Multi-Drug Resistant Organisms: None Reported Past Surgical History: AICD, Pacemaker Additional Past Surgical History / Comment(s): kidney stent and temoval Past Anesthesia/Blood Transfusion Reactions: Motion Sickness Additional Past Anesthesia/Blood Transfusion Reaction / Comment(s): Pt has clausterphobia. Type of Cardiac Device: Permanent Pacemaker, AICD Device Placement Date:: 08/03/10 Past Psychological History: No Psychological Hx Reported Smoking Status: Never smoker Past Alcohol Use History: None Reported Past Drug Use History: Marijuana - Past Family History Father Family Medical History: No Reported History Additional Family Medical History / Comment(s): Father is healthy Mother Family Medical History: Asthma, Thyroid Disorder Medications and Allergies Home Medications Medication Instructions Recorded Confirmed Type Metoprolol Succinate (ER) [Toprol 50 mg PO HS 03/12/20 02/20/21 History Xl] Doxycycline Monohydrate 100 mg PO BID 02/20/21 02/20/21 History Allergies Allergy/AdvReac Type Severity Reaction Status Date / Time No Known Allergies Allergy Verified 02/20/21 12:47 Physical Exam Vitals: Vital Signs Temp Pulse Resp BP Pulse Ox 02/20/21 10:13 100.0 F H 89 16 122/70 98 02/20/21 07:52 101.2 F H 102 H 18 117/69 99 Intake and Output 02/19/21 02/20/21 02/20/21 22:59 06:59 14:59 Other: Weight 77.111 kg General: The patient is awake and alert, in no distress Eye: there is normal conjunctiva bilaterally. Neck: The neck is supple, there is no JVD. Cardiovascular: Normal S1-S2, no S3-S4, no murmurs. Respiratory: Lungs clear to auscultation bilaterally Gastrointestinal: Abdomen is soft, nontender Musculoskeletal: There is no pedal edema. Neurological:. Speech is normal. Skin: Skin is warm and dry Results CBC & Chem 7: 02/20/21 08:19 02/20/21 08:19 Labs: Abnormal Lab Results - Last 24 Hours (Table) 02/20/21 02/20/21 02/20/21 Range/Units 08:19 08:19 08:19 WBC 18.6 H (3.8-10.6) k/uL Neutrophils # 17.0 H (1.3-7.7) k/uL Lymphocytes # 0.6 L (1.0-4.8) k/uL Carbon Dioxide 18 L (22-30) mmol/L Glucose 108 H (74-99) mg/dL Total Bilirubin 1.7 H (0.2-1.3) mg/dL Urine Protein 1+ H (Negative) Urine Ketones 3+ H (Negative) Urine Blood Large H (Negative) Ur Leukocyte Esterase Small H (Negative) Urine RBC >182 H (0-5) /hpf Urine WBC 24 H (0-5) /hpf Urine Mucus Rare H (None) /hpf Assessment and Plan Assessment: 1. Recurrent left pyelonephritis 2. Sepsis with septic shock 3. History of recurrent left nephrolithiasis with left hydro ureter nephrosis 4. History of prolonged QT intervals status post AICD implantation Today, I reviewed her medication list and lab work results. Continue aggressive IV fluid hydration. Antibiotic with IV ceftriaxone 2 g daily. Urine and blood culture sent and pending. Urology consulted for further evaluation.
--- NOTE | 2021-02-20 15:35 | P.GSCN ---
History of Present Illness Consult date: 02/20/21 History of present illness: 25-year-old female admitted the hospital by the medical service because of flank pain, hydronephrosis, urinary tract infection with sepsis. The patient urologic history eats 2 last summer when she was and had flank pain. Because of a high risk (cardiac issues) she ended up being delivered at [facility] in [place]. 3 weeks prior to her delivery in early November she had severe flank pain such that apparently she had left ureteroscopy stone removal and stent placement there. Apparently she was transferred to [facility] for further care as her insurance was not excepted at [facility] (?). She does not remember the name of the urologist at [facility]. The stent had been in place until last Monday. She was down at [facility] urology offices and apparently her stent was removed by a surgeon of which she does not remember his name. Monday evening she developed flank pain and some fever. She called her urologist at [facility] and he ordered antibiotics in which she did not get. She presented to the emergency room with nausea vomiting fever and flank pain. She has infected looking urine. A computed tomography scan showed some mild to moderate left-sided hydronephrosis without a stone. On is 18,000. She is brought in the hospital placed on intravenous antibiotics and IV fluids. She is feeling better at this point in time. This is her first stone. She has not had any discomfort urinating. Her flank pain is less since she's been in the hospital. 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 Apparently the defibrillator has gone off approximately 12 times over the last 10 years for which she has had this defibrillator. The pacemaker paces occasionally. She follows with Dr. Hdz here locally. 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 History of cardiac arrest in 2010, kidney stones History of Any Multi-Drug Resistant Organisms: None Reported Past Surgical History: AICD, Pacemaker Additional Past Surgical History / Comment(s): kidney stent and removal Past Anesthesia/Blood Transfusion Reactions: Motion Sickness Additional Past Anesthesia/Blood Transfusion Reaction / Comm: Pt has clausterphobia. Type of Cardiac Device: Permanent Pacemaker, AICD Device Placement Date:: 08/03/10 Past Psychological History: No Psychological Hx Reported Smoking Status: Never smoker Past Alcohol Use History: None Reported Past Drug Use History: Marijuana - Past Family History Father Family Medical History: No Reported History Additional Family Medical History / Comment(s): Father is healthy Mother Family Medical History: Asthma, Thyroid Disorder Medications and Allergies Home Medications Medication Instructions Recorded Confirmed Type Metoprolol Succinate (ER) [Toprol 50 mg PO HS 03/12/20 02/20/21 History Xl] Doxycycline Monohydrate 100 mg PO BID 02/20/21 02/20/21 History Allergies Allergy/AdvReac Type Severity Reaction Status Date / Time No Known Allergies Allergy Verified 02/20/21 12:47 Surgical - Exam Vital Signs Temp Pulse Resp BP Pulse Ox 101.2 F H 102 H 18 117/69 99 02/20/21 07:52 02/20/21 07:52 02/20/21 07:52 02/20/21 07:52 02/20/21 07:52 - General well developed, well nourished, no distress - Eyes PERRL - ENT no hearing loss - Neck trachea midline - Respiratory normal expansion, normal respiratory effort - Cardiovascular Rhythm: regular - Abdomen Abdomen: soft, non tender - Integumentary no rash - Neurologic normal coordination, normal sensation - Musculoskeletal normal posture - Psychiatric oriented to time, oriented to person, oriented to place, speech is normal, memory intact Results - Labs 02/20/21 08:19 02/20/21 08:19 Abnormal Lab Results - Last 24 Hours (Table) 02/20/21 02/20/21 02/20/21 Range/Units 08:19 08:19 08:19 WBC 18.6 H (3.8-10.6) k/uL Neutrophils # 17.0 H (1.3-7.7) k/uL Lymphocytes # 0.6 L (1.0-4.8) k/uL Carbon Dioxide 18 L (22-30) mmol/L Glucose 108 H (74-99) mg/dL Total Bilirubin 1.7 H (0.2-1.3) mg/dL Urine Protein 1+ H (Negative) Urine Ketones 3+ H (Negative) Urine Blood Large H (Negative) Ur Leukocyte Esterase Small H (Negative) Urine RBC >182 H (0-5) /hpf Urine WBC 24 H (0-5) /hpf Urine Mucus Rare H (None) /hpf Microbiology - Last 24 Hours (Table) 02/20/21 08:19 Urine Culture - Preliminary Urine,Clean Catch Diabetes panel 02/20/21 Range/Units 08:19 Sodium 137 (137-145) mmol/L Potassium 3.5 (3.5-5.1) mmol/L Chloride 105 (98-107) mmol/L Carbon Dioxide 18 L (22-30) mmol/L BUN 10 (7-17) mg/dL Creatinine 0.77 (0.52-1.04) mg/dL Glucose 108 H (74-99) mg/dL Calcium 9.5 (8.4-10.2) mg/dL AST 19 (14-36) U/L ALT 12 (4-34) U/L Alkaline Phosphatase 52 (38-126) U/L Total Protein 7.2 (6.3-8.2) g/dL Albumin 4.4 (3.5-5.0) g/dL Calcium panel 02/20/21 Range/Units 08:19 Calcium 9.5 (8.4-10.2) mg/dL Albumin 4.4 (3.5-5.0) g/dL Pituitary panel 02/20/21 Range/Units 08:19 Sodium 137 (137-145) mmol/L Potassium 3.5 (3.5-5.1) mmol/L Chloride 105 (98-107) mmol/L Carbon Dioxide 18 L (22-30) mmol/L BUN 10 (7-17) mg/dL Creatinine 0.77 (0.52-1.04) mg/dL Glucose 108 H (74-99) mg/dL Calcium 9.5 (8.4-10.2) mg/dL Adrenal panel 02/20/21 Range/Units 08:19 Sodium 137 (137-145) mmol/L Potassium 3.5 (3.5-5.1) mmol/L Chloride 105 (98-107) mmol/L Carbon Dioxide 18 L (22-30) mmol/L BUN 10 (7-17) mg/dL Creatinine 0.77 (0.52-1.04) mg/dL Glucose 108 H (74-99) mg/dL Calcium 9.5 (8.4-10.2) mg/dL Total Bilirubin 1.7 H (0.2-1.3) mg/dL AST 19 (14-36) U/L ALT 12 (4-34) U/L Alkaline Phosphatase 52 (38-126) U/L Total Protein 7.2 (6.3-8.2) g/dL Albumin 4.4 (3.5-5.0) g/dL - Imaging CT scan - abdomen: report reviewed, image reviewed CT scan - pelvis: report reviewed, image reviewed Assessment and Plan Assessment: Impression: Status post left ureteroscopy stone removal, 12/03/2020 at [facility]. Status post stent removal left at [facility] urology offices 02/17/21. Urinary tract infection with sepsis. Mild hydronephrosis. Neck issues. Recommendations: She seems to be clinically feeling okay. I recommend leaving the stent out for now and treating her with IV fluids and IV antibiotics to see if we can control this situation rather than put her under another anesthetic and replace stent. I will follow this patient with you. This is been discussed at length with the patient. Time with Patient: Greater than 30
[2021-02-21] MEDS: SODIUM CHLORIDE 0.9% 1,000 ML IV SCH ×4 (01:52→21:55)
[2021-02-21] MEDS: HYDROmorphone 0.5 MG/0.5 ML SYRINGE IVP PRN ×3 (01:53→21:55)
--- NOTE | 2021-02-21 08:16 | P.PN ---
Subjective Progress Note Date: 02/21/21 The patient is in the hospital with a urinary tract infection and sepsis.. Her urinary tract history is complicated having stents and procedures and multiple different hospitals. She came to [facility] with left-sided flank pain and a urinary tract infection with sepsis. She has some mild to moderate hydronephrosis on the left side. She had a stent removed at [facility] last week. There is no stone. Her T-max yesterday was down at 100.7. She is feeling a little bit better. I recommend continue with IV fluids and IV antibiotics. Hopefully we will not need to replace the double-J catheter Objective - Vital Signs Vital signs: Vital Signs Temp 98.6 F 02/21/21 01:57 Pulse 88 02/21/21 01:57 Resp 18 02/21/21 01:57 BP 118/73 02/21/21 01:57 Pulse Ox 99 02/21/21 01:57 Intake & Output 02/20/21 02/21/21 02/21/21 18:59 06:59 18:59 Intake Total 120 Output Total 300 850 200 Balance -300 -730 -200 Weight 77.111 kg Intake: Oral 120 Output: Urine 300 850 200 Other: Voiding Method Toilet # Voids 2 - Labs CBC & Chem 7: 02/20/21 08:19 02/20/21 08:19 Labs: Abnormal Lab Results - Last 24 Hours (Table) 02/20/21 02/20/21 02/20/21 Range/Units 08:19 08:19 08:19 WBC 18.6 H (3.8-10.6) k/uL Neutrophils # 17.0 H (1.3-7.7) k/uL Lymphocytes # 0.6 L (1.0-4.8) k/uL Carbon Dioxide 18 L (22-30) mmol/L Glucose 108 H (74-99) mg/dL Total Bilirubin 1.7 H (0.2-1.3) mg/dL Urine Protein 1+ H (Negative) Urine Ketones 3+ H (Negative) Urine Blood Large H (Negative) Ur Leukocyte Esterase Small H (Negative) Urine RBC >182 H (0-5) /hpf Urine WBC 24 H (0-5) /hpf Urine Mucus Rare H (None) /hpf Microbiology - Last 24 Hours (Table) 02/20/21 08:19 Urine Culture - Preliminary Urine,Clean Catch
[2021-02-21] MEDS: HYDROcodone/APAP 5-325MG 1 EACH TAB PO PRN ×2 (10:20→15:13)
--- NOTE | 2021-02-21 11:39 | P.PN ---
Subjective Patient is feeling better today. No nausea or vomiting. Objective - Vital Signs Vital signs: Vital Signs Temp 98.4 F 02/21/21 08:12 Pulse 86 02/21/21 08:12 Resp 16 02/21/21 08:12 BP 120/70 02/21/21 08:12 Pulse Ox 96 02/21/21 08:12 Intake & Output 02/20/21 02/21/21 02/21/21 18:59 06:59 18:59 Intake Total 120 180 Output Total 300 850 550 Balance -300 -730 -370 Weight 77.111 kg Intake: Oral 120 180 Output: Urine 300 850 550 Other: Voiding Method Toilet # Voids 2 - Exam General: The patient is awake and alert, in no distress Eye: there is normal conjunctiva bilaterally. Neck: The neck is supple, there is no JVD. Cardiovascular: Normal S1-S2, no S3-S4, no murmurs. Respiratory: Lungs clear to auscultation bilaterally Gastrointestinal: Abdomen is soft, nontender Musculoskeletal: There is no pedal edema. Neurological:. Speech is normal. Skin: Skin is warm and dry - Labs CBC & Chem 7: 02/20/21 08:19 02/20/21 08:19 Labs: Microbiology - Last 24 Hours (Table) 02/20/21 08:19 Blood Culture - Preliminary Blood No Growth after 24 hours 02/20/21 08:19 Blood Culture - Preliminary Blood No Growth after 24 hours 02/20/21 08:19 Urine Culture - Preliminary Urine,Clean Catch Assessment and Plan Assessment: 1. Recurrent left pyelonephritis/complicated UTI 2. Sepsis with septic shock 3. History of recurrent left nephrolithiasis with left hydro ureter nephrosis 4. History of prolonged QT intervals status post AICD implantation Today, I reviewed her medication list and lab work results. Antibiotic with IV ceftriaxone 2 g daily awaiting urine culture results. Urology consulted for further evaluation, no intervention recommended at this time
[2021-02-21] MEDS ORDERED: METOPROLOL SUCCINATE (ER) 50 MG TAB.ER.24H PO SCH (23:00)
[2021-02-22 02:00] VITALS: RESP 16
[2021-02-22] MEDS: HYDROcodone/APAP 5-325MG 1 EACH TAB PO PRN ×2 (04:33→08:23)
[2021-02-22] MEDS: SODIUM CHLORIDE 0.9% 1,000 ML IV SCH (04:33)
[2021-02-22 08:12] VITALS: BP 122/67; PULSE 60; TEMP 97.7
--- NOTE | 2021-02-22 10:12 | P.DS ---
Providers Date of admission: 02/20/21 10:28 Expected date of discharge: 02/22/21 Attending physician: Joaquín Aldridge Consults: 02/20/21 10:41 Consult Physician Routine Consulting Provider: Ruperto Ovalle Consult Reason/Comments: Pyelonephritis, hydroureter Do you want consulting provider notified?: Yes Primary care physician: Angel Becker [facility] Course: This is a 25-year-old female with complex past medical history significant for history of hydronephrosis requiring stent placement to the left ureter that presented to the emergency room with nausea and vomiting. Patient was evaluated and admitted to the hospital for further management of her medical problems noted below. 1. Recurrent left pyelonephritis/complicated UTI 2. Sepsis with septic shock 3. History of recurrent left nephrolithiasis with left hydro ureter nephrosis 4. History of prolonged QT intervals status post AICD implantation Patient was treated aggressively with IV fluid and antibiotic with ceftriaxone 2 g daily. Her overall condition improved significantly. All of her cultures remained negative. Patient was seen and evaluated by urology and no further intervention recommended at this time. Patient will be discharged home to finish antibiotic course with Omnicef for 5 more days. She will follow-up with her urologist as directed. General: The patient is awake and alert, in no distress Eye: there is normal conjunctiva bilaterally. Neck: The neck is supple, there is no JVD. Cardiovascular: Normal S1-S2, no S3-S4, no murmurs. Respiratory: Lungs clear to auscultation bilaterally Gastrointestinal: Abdomen is soft, nontender Musculoskeletal: There is no pedal edema. Neurological:. Speech is normal. Skin: Skin is warm and dry Patient Condition at Discharge: Fair Plan - Discharge Summary Discharge Rx Participant: No New Discharge Prescriptions: New Cefdinir [Omnicef] 300 mg PO Q12HR #10 Continue Metoprolol Succinate (ER) [Toprol XL] 50 mg PO HS Discontinued Doxycycline Monohydrate 100 mg PO BID Discharge Medication List Metoprolol Succinate (ER) [Toprol XL] 50 mg PO HS 03/12/20 [History] Cefdinir [Omnicef] 300 mg PO Q12HR #10 02/22/21 [Rx] Follow up Appointment(s)/Referral(s): Angel Becker MD [Primary Care Provider] - 1-2 days Patient Instructions/Handouts: Ceftriaxone (By injection), Hydromorphone (By injection), Kidney Infection (GEN)
--- NOTE | 2021-02-22 12:08 | P.PN ---
Progress Note - Text Progress Note Date: 02/22/21 Patient was seen this morning. She stated that she was feeling much better. The urine culture was negative. She remains afebrile. I would suggest she be discharged home on oral antibiotics and follow up with Dr. Becker. She has an appointment to see her urologist at [facility] in 6 weeks (she believes it is Dr. Deo Del Toro). She was advised to contact us if we can be of any assistance as an outpatient.
== END 2021-02-22 11:49 | disposition home or self-care (01) ==
LOC: EC 07:43 → INTOOBSV 10:28 → 6PED 10:28 → UNDODISIN 02-22 11:49
PROVIDERS: ADMIT Internal Medicine; ATTEND Internal Medicine
DX: A41.9 Sepsis, unspecified organism (principal); R65.21 Severe sepsis with septic shock; N13.6 Pyonephrosis; I45.81 Long QT syndrome; M81.8 Other osteoporosis without current pathological fracture; H54.8 Legal blindness, as defined in USA; F40.240 Claustrophobia; Z20.822 Contact with and (suspected) exposure to COVID-19; Z79.899 Other long term (current) drug therapy; Z87.442 Personal history of urinary calculi; Z86.74 Personal history of sudden cardiac arrest; Z95.810 Presence of automatic (implantable) cardiac defibrillator; Z82.5 Family history of asthma and other chronic lower respiratory diseases; Z83.49 Family history of other endocrine, nutritional and metabolic diseases
CPT/HCPCS: 96361; 96376 ×3; 96365; 96375; 99284; 99285; 36415; 80053; 82150; 83605; 83690; 85025; 81001; 81025; 87040; 87086; 87635; 74176; G0378 ×3; J2060; J1200; J0696 ×3; J1885; J1170 ×2; 96374

== ENCOUNTER 2021-05-30 07:08 | Emergency (ER) | payer OTHER ==
[2021-05-30 07:23] VITALS: TEMP 97.6
--- NOTE | 2021-05-30 07:36 | ED ---
General Adult HPI - General Chief complaint: Chest Pain Stated complaint: Chest pain,sweats,light headed Time Seen by Provider: 05/30/21 07:09 Source: patient Mode of arrival: ambulatory Limitations: no limitations - History of Present Illness Initial comments: Dictation was produced using [employer] dictation software. please excuse any grammatical, word or spelling errors. Chief Complaint: 25-year-old male presents emergency department for pleuritic chest pain History of Present Illness: Patient 25-year-old female past medical history of long QT syndrome, AICD. She presents to emergency Department with achy chest pain. She states that it's achy at baseline when she coughs or takes a deep breath it hurts more. She states that when she takes a deep breath it is sharp. Her symptoms began at 5:00 this morning. Patient has a history of prolonged QT syndrome has a before meals pacemaker placed because of that. Patient denies radiation of symptoms down her arms upper neck. No associated diaphoresis or nausea. Patient states she's had a slight cough with auscultation. Back in March she was diagnosed with COVID-19. She reports that she's had a chronic cough since then. Denies any fever. Cough is nonproductive. No constitutional symptoms. She reports that the pain is to her left anterior chest The ROS documented in this emergency department record has been reviewed and confirmed by me. Those systems with pertinent positive or negative responses have been documented in the HPI. All other systems are other negative and/or noncontributory. PHYSICAL EXAM: General Impression: Alert and oriented x3, not in acute distress HEENT: Normocephalic atraumatic, extra-ocular movements intact, pupils equal and reactive to light bilaterally, mucous membranes moist. Cardiovascular: Heart regular rate and rhythm Chest: Able to complete full sentences, no retractions, no tachypnea, clear to auscultation bilaterally, pain is slightly reproducible with palpation to the left chest Abdomen: abdomen soft, non-tender, non-distended, no organomegaly Musculoskeletal: Pulses present and equal in all extremities, no peripheral edema Motor: no focal deficits noted Neurological: CN II-XII grossly intact, no focal motor or sensory deficits noted Skin: Intact with no visualized rashes Psych: Normal affect and mood ED course: 25-year-old female past medical history of AICD presents to the emergency department for atypical chest pain. Vital signs upon arrival are within acceptable limits. Patient denies any history of coronary artery disease. Laboratory evaluation obtained. CBC, d-dimer, metabolic panel, troponin, urine hCG coronavirus tests are negative. Chest x-ray is nonacute. There is perhaps a 7 mm nodule in the right lung apex. Radiology recommends outpatient surveillance. Patient has no high-risk features. Patient was observed in emergency department for one hour 30 minutes with no acute issues. Clinical presentation consistent with pleurisy, no obvious source likely musculoskeletal in nature patient will be discharged advised follow-up with primary care doctor. EKG interpretation: Ventricular rate 65, normal sinus rhythm,. Interval 154, QRS 82, QTc 401. No MT prolongation, no QTC prolongation, no ST or T-wave changes noted. EKG compared to 10/07/2020 showing no changes. Overall, this EKG is unremarkable - Related Data Home Medications Medication Instructions Recorded Confirmed Metoprolol Succinate (ER) [Toprol 50 mg PO HS 03/12/20 05/30/21 XL] Ascorbic Acid [Vitamin C] 1,000 mg PO DAILY 05/30/21 05/30/21 Allergies Allergy/AdvReac Type Severity Reaction Status Date / Time No Known Allergies Allergy Verified 05/30/21 07:23 Review of Systems ROS Statement: Those systems with pertinent positive or pertinent negative responses have been documented in the HPI. ROS Other: All systems not noted in ROS Statement are negative. 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 History of cardiac arrest in 2010, kidney stones History of Any Multi-Drug Resistant Organisms: None Reported Past Surgical History: AICD, Pacemaker Additional Past Surgical History / Comment(s): kidney stent and removal Past Anesthesia/Blood Transfusion Reactions: Motion Sickness Additional Past Anesthesia/Blood Transfusion Reaction / Comment(s): Pt has clausterphobia. Type of Cardiac Device: Permanent Pacemaker, AICD Device Placement Date:: 08/03/10 Past Psychological History: No Psychological Hx Reported Smoking Status: Never smoker Past Alcohol Use History: None Reported Past Drug Use History: Marijuana - Past Family History Father Family Medical History: No Reported History Additional Family Medical History / Comment(s): Father is healthy Mother Family Medical History: Asthma, Thyroid Disorder General Exam Limitations: no limitations Course Vital Signs 05/30/21 05/30/21 07:21 08:00 Temperature 97.6 F Pulse Rate 80 62 Respiratory 16 18 Rate Blood Pressure 121/64 116/73 O2 Sat by Pulse 99 98 Oximetry Medical Decision Making - Lab Data Result diagrams: 05/30/21 07:51 05/30/21 07:51 Lab Results 05/30/21 05/30/21 05/30/21 Range/Units 07:51 07:51 07:51 WBC (3.8-10.6) k/uL RBC (3.80-5.40) m/uL Hgb (11.4-16.0) gm/dL Hct (34.0-46.0) % MCV (80.0-100.0) fL MCH (25.0-35.0) pg MCHC (31.0-37.0) g/dL RDW (11.5-15.5) % Plt Count (150-450) k/uL MPV Neutrophils % % Lymphocytes % % Monocytes % % Eosinophils % % Basophils % % Neutrophils # (1.3-7.7) k/uL Lymphocytes # (1.0-4.8) k/uL Monocytes # (0-1.0) k/uL Eosinophils # (0-0.7) k/uL Basophils # (0-0.2) k/uL D-Dimer 0.25 (<0.60) mg/L FEU Sodium (137-145) mmol/L Potassium (3.5-5.1) mmol/L Chloride (98-107) mmol/L Carbon Dioxide (22-30) mmol/L Anion Gap mmol/L BUN (7-17) mg/dL Creatinine (0.52-1.04) mg/dL Est GFR (CKD-EPI)AfAm (>60 ml/min/1.73 sqM) Est GFR (CKD-EPI)NonAf (>60 ml/min/1.73 sqM) Glucose (74-99) mg/dL Calcium (8.4-10.2) mg/dL Troponin I (0.000-0.034) ng/mL Urine HCG, Qual Not Detected (Not Detectd) Coronavirus (PCR) Not Detected (Not Detectd) 01/30/22 01/30/22 01/30/22 Range/Units 07:51 07:51 07:51 WBC 7.0 (3.8-10.6) k/uL RBC 5.33 (3.80-5.40) m/uL Hgb 15.0 (11.4-16.0) gm/dL Hct 45.0 (34.0-46.0) % MCV 84.5 (80.0-100.0) fL MCH 28.2 (25.0-35.0) pg MCHC 33.4 (31.0-37.0) g/dL RDW 13.5 (11.5-15.5) % Plt Count 236 (150-450) k/uL MPV 7.4 Neutrophils % 73 % Lymphocytes % 14 % Monocytes % 10 % Eosinophils % 1 % Basophils % 0 % Neutrophils # 5.1 (1.3-7.7) k/uL Lymphocytes # 1.0 (1.0-4.8) k/uL Monocytes # 0.7 (0-1.0) k/uL Eosinophils # 0.1 (0-0.7) k/uL Basophils # 0.0 (0-0.2) k/uL D-Dimer (<0.60) mg/L FEU Sodium 140 (137-145) mmol/L Potassium 4.3 (3.5-5.1) mmol/L Chloride 108 H (98-107) mmol/L Carbon Dioxide 22 (22-30) mmol/L Anion Gap 10 mmol/L BUN 15 (7-17) mg/dL Creatinine 0.86 (0.52-1.04) mg/dL Est GFR (CKD-EPI)AfAm >90 (>60 ml/min/1.73 sqM) Est GFR (CKD-EPI)NonAf >90 (>60 ml/min/1.73 sqM) Glucose 95 (74-99) mg/dL Calcium 9.5 (8.4-10.2) mg/dL Troponin I <0.012 (0.000-0.034) ng/mL Urine HCG, Qual (Not Detectd) Coronavirus (PCR) (Not Detectd) Disposition Clinical Impression: Pleurisy Disposition: HOME SELF-CARE Condition: Good Instructions (If sedation given, give patient instructions): Costochondritis (ED) Is patient prescribed a controlled substance at d/c from ED?: No Referrals: Angel Becker MD [Primary Care Provider] - 1-2 days
[2021-05-30 08:02] VITALS: BP 116/73; PULSE 62; RESP 18
[2021-05-30 08:23] LABS: Basophils % (A) 0 %; Eosinophils # (A) 0.1 k/uL (0-0.7); Eosinophils % (A) 1 %; Lymphocytes % (A) 14 %; MCH 28.2 pg (25.0-35.0); MCHC 33.4 g/dL (31.0-37.0); MCV 84.5 fL (80.0-100.0); Mean Platelet Volume 7.4; Monocytes # (A) 0.7 k/uL (0-1.0); Monocytes % (A) 10 %; Neutrophils # (A) 5.1 k/uL (1.3-7.7); Neutrophils % (A) 73 %; Platelet Count 236 k/uL (150-450); RBC 5.33 m/uL (3.80-5.40); RDW 13.5 % (11.5-15.5)
[2021-05-30 08:29] LABS: African American GFR (CKD) >90 (>60 ml/min/1.73 sqM); Anion Gap 10 mmol/L; Blood Urea Nitrogen 15 mg/dL (7-17); Calcium 9.5 mg/dL (8.4-10.2); Carbon Dioxide 22 mmol/L (22-30); Chloride 108 mmol/L (98-107); Glucose 95 mg/dL (74-99); Non-African American GFR(CKD) >90 (>60 ml/min/1.73 sqM); Potassium 4.3 mmol/L (3.5-5.1); Sodium 140 mmol/L (137-145)
--- NOTE | 2021-05-30 08:33 | XR ---
EXAMINATION TYPE: XR chest 2V DATE OF EXAM: 05/30/2021 COMPARISON: 07/25/2020 HISTORY: Pleurisy TECHNIQUE: Frontal and lateral views of the chest are obtained. FINDINGS: There is no focal air space opacity, pleural effusion, or pneumothorax seen. There is sugg estion of a 7.4 mm nodule in the right lung apex which is not clearly seen on the prior study. CT of the chest be useful for further evaluation on a nonemergent basis. The cardiac silhouette size is within normal limits. The osseous structures are intact. There is a single lead cardiac pacemaker unchanged in position. IMPRESSION: 1. No acute cardiopulmonary disease. 2. Questionable 7 mm nodule in the right lung apex not seen on the prior study. CT chest on a nonemer gent basis would be useful for further evaluation
[2021-05-30] MEDS ORDERED: KETOROLAC 30 MG/ML 1 ML VIAL IVP STA (08:45)
== END 2021-05-30 09:09 | disposition home or self-care (01) ==
LOC: EC 07:08
DX: R09.1 Pleurisy (principal); Z20.822 Contact with and (suspected) exposure to COVID-19
CPT/HCPCS: 36415; 93005; 85379; 80048; 84484; 85025; 81025; 87635; 71046; 99285; 96374; J1885

== ENCOUNTER → 2021-06-04 | Outpatient (CLI) | payer OTHER ==
--- NOTE | 2021-06-04 10:35 | CT ---
EXAMINATION TYPE: CT chest w con DATE OF EXAM: 06/04/2021 COMPARISON: Correlation radiograph 05/30/2021 HISTORY: 25-year-old female R9 1.1, Lung nodule TECHNIQUE: Contiguous axial scanning of the chest after the administration of 100 ml mL of Isovue 300 . Coronal/sagittal reconstructions performed. CT DLP: 463mGycm. Automatic exposure control utilized for a dose reduction. FINDINGS: Left anterior chest wall AICD generator with right ventricular lead. Heart normal size without pericardial effusion. Aorta normal caliber with conventional arch vessel branching anatomy. No thoracic lymphadenopathy by CT size criteria. Minimal biapical pleural parenchymal scarring. Some minimal strandy atelectasis in the lower lungs. N o consolidation or pleural effusion. The visualized upper abdomen shows no gross abnormality. The previous left hydronephrosis has resolve d. Bones: No osseous destructive process. IMPRESSION: Some strandy lower lung atelectasis. No acute pulmonary process. No suspicious pulmonary nodules seen , with particular attention to the lateral right upper lobe area on radiograph. Current findings sugg est summation artifact on the prior x-ray. .
== END | disposition home or self-care (01) ==
LOC: RADCTMAIN 07:44
PROVIDERS: ATTEND Family Medicine
DX: J98.11 Atelectasis (principal); R91.1 Solitary pulmonary nodule
CPT/HCPCS: 71260; Q9967

== ENCOUNTER → 2021-08-17 | Outpatient (CLI) | payer OTHER | END | disposition home or self-care (01) | LOC: CPPFTMAIN 08:24 | PROVIDERS: ATTEND Family Medicine | DX: R05.9 Cough, unspecified (principal) | CPT/HCPCS: 94060; 94726; 94729 ==

== ENCOUNTER 2021-10-12 05:03 | Emergency (ER) | payer OTHER ==
[2021-10-12 05:15] VITALS: RESP 18; TEMP 98
--- NOTE | 2021-10-12 05:21 | ED ---
Recheck HPI - General Chief Complaint: Skin/Abscess/Foreign Body Stated Complaint: Post shoulder op pain and infection Time Seen by Provider: 10/12/21 05:21 Source: patient, RN notes reviewed, old records reviewed Mode of arrival: ambulatory Limitations: no limitations - History of Present Illness Initial Comments: This is a 25 female to the emergency department for evaluation patient resents today for evaluation regards to not feeling quite well. Feels like she may have a port infection of some sort. Patient recently had an AICD placed. Patient has significant pain in her left shoulder with she is also very concerned about. At this time patient is on antibiotics for the second maybe third time since surgery. Otherwise no travel history no sick contacts no cough or congestion or shortness of breath MD Complaint: wound re-check -: minutes(s) Returns Today for: Called Because of Abnormal Lab/Test, needs IV antibiotics, persistent/worsening pain related to initial visit Symptoms Since Prior Visit: no new symptoms, worsening pain Associated Symptoms: none Treatments Prior to Arrival: other medications - Related Data Home Medications Medication Instructions Recorded Confirmed Metoprolol Succinate (ER) [Toprol 50 mg PO HS 03/12/20 05/30/21 XL] Ascorbic Acid [Vitamin C] 1,000 mg PO DAILY 05/30/21 05/30/21 Previous Rx's Medication Instructions Recorded LORazepam [Ativan] 0.5 mg PO TID PRN #9 tab 09/06/21 Allergies Allergy/AdvReac Type Severity Reaction Status Date / Time No Known Allergies Allergy Verified 10/12/21 05:15 Review of Systems ROS Statement: Those systems with pertinent positive or pertinent negative responses have been documented in the HPI. ROS Other: All systems not noted in ROS Statement are negative. 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 History of cardiac arrest in 2010, kidney stones History of Any Multi-Drug Resistant Organisms: None Reported Past Surgical History: AICD, Pacemaker Additional Past Surgical History / Comment(s): kidney stent and removal Past Anesthesia/Blood Transfusion Reactions: Motion Sickness Additional Past Anesthesia/Blood Transfusion Reaction / Comment(s): Pt has clausterphobia. Type of Cardiac Device: Permanent Pacemaker, AICD Device Placement Date:: 08/03/10 Past Psychological History: No Psychological Hx Reported Smoking Status: Never smoker Past Alcohol Use History: None Reported Past Drug Use History: Marijuana - Past Family History Father Family Medical History: No Reported History Additional Family Medical History / Comment(s): Father is healthy Mother Family Medical History: Asthma, Thyroid Disorder General Exam Limitations: no limitations General appearance: alert, in no apparent distress Head exam: Present: atraumatic, normocephalic, normal inspection Eye exam: Present: normal appearance, PERRL, EOMI. Absent: scleral icterus, conjunctival injection, periorbital swelling ENT exam: Present: normal exam, mucous membranes moist Neck exam: Present: normal inspection. Absent: tenderness, meningismus, lymphadenopathy Respiratory exam: Present: normal lung sounds bilaterally. Absent: respiratory distress, wheezes, rales, rhonchi, stridor Cardiovascular Exam: Present: regular rate, normal rhythm, normal heart sounds. Absent: systolic murmur, diastolic murmur, rubs, gallop, clicks GI/Abdominal exam: Present: soft, normal bowel sounds. Absent: distended, tenderness, guarding, rebound, rigid Extremities exam: Present: normal inspection, full ROM, normal capillary refill. Absent: tenderness, pedal edema, joint swelling, calf tenderness Back exam: Present: normal inspection Neurological exam: Present: alert, oriented X3, CN II-XII intact Psychiatric exam: Present: normal affect, normal mood Skin exam: Present: warm, dry, intact, normal color. Absent: rash Course Vital Signs 10/12/21 10/12/21 05:13 07:00 Temperature 98 F Pulse Rate 73 75 Respiratory 18 Rate Blood Pressure 148/85 138/74 O2 Sat by Pulse 99 Oximetry - Reevaluation(s) Reevaluation #1: 10/12/21 05:52 medical record is reviewed Reevaluation #2: 10/12/21 Patient informed results and questions answered Reevaluation #3: 10/12/21 She does feel improved Medical Decision Making - Medical Decision Making 25 female postop. Pain shoulder pain. No acute findings here in the ER x-ray normal no signs of infection patient can be discharged home - Lab Data Result diagrams: 10/12/21 05:30 10/12/21 05:30 Lab Results 10/12/21 10/12/21 10/12/21 Range/Units 05:30 05:30 05:30 WBC 5.1 (3.8-10.6) k/uL RBC 5.07 (3.80-5.40) m/uL Hgb 14.3 (11.4-16.0) gm/dL Hct 44.2 (34.0-46.0) % MCV 87.2 (80.0-100.0) fL MCH 28.3 (25.0-35.0) pg MCHC 32.4 (31.0-37.0) g/dL RDW 12.3 (11.5-15.5) % Plt Count 264 (150-450) k/uL MPV 7.5 Neutrophils % 63 % Lymphocytes % 25 % Monocytes % 7 % Eosinophils % 3 % Basophils % 1 % Neutrophils # 3.2 (1.3-7.7) k/uL Lymphocytes # 1.3 (1.0-4.8) k/uL Monocytes # 0.3 (0-1.0) k/uL Eosinophils # 0.1 (0-0.7) k/uL Basophils # 0.0 (0-0.2) k/uL Sodium 139 (137-145) mmol/L Potassium 4.2 (3.5-5.1) mmol/L Chloride 108 H (98-107) mmol/L Carbon Dioxide 24 (22-30) mmol/L Anion Gap 7 mmol/L BUN 16 (7-17) mg/dL Creatinine 0.71 (0.52-1.04) mg/dL Est GFR (CKD-EPI)AfAm >90 (>60 ml/min/1.73 sqM) Est GFR (CKD-EPI)NonAf >90 (>60 ml/min/1.73 sqM) Glucose 107 H (74-99) mg/dL Plasma Lactic Acid Emanuel 0.7 (0.7-2.0) mmol/L Calcium 9.2 (8.4-10.2) mg/dL Phosphorus 3.4 (2.5-4.5) mg/dL Magnesium 1.9 (1.6-2.3) mg/dL Total Bilirubin 1.5 H (0.2-1.3) mg/dL AST 31 (14-36) U/L ALT 26 (4-34) U/L Alkaline Phosphatase 46 (38-126) U/L Troponin I (0.000-0.034) ng/mL C-Reactive Protein <0.5 (<1.0) mg/dL Total Protein 7.1 (6.3-8.2) g/dL Albumin 4.7 (3.5-5.0) g/dL 10/12/21 Range/Units 05:30 WBC (3.8-10.6) k/uL RBC (3.80-5.40) m/uL Hgb (11.4-16.0) gm/dL Hct (34.0-46.0) % MCV (80.0-100.0) fL MCH (25.0-35.0) pg MCHC (31.0-37.0) g/dL RDW (11.5-15.5) % Plt Count (150-450) k/uL MPV Neutrophils % % Lymphocytes % % Monocytes % % Eosinophils % % Basophils % % Neutrophils # (1.3-7.7) k/uL Lymphocytes # (1.0-4.8) k/uL Monocytes # (0-1.0) k/uL Eosinophils # (0-0.7) k/uL Basophils # (0-0.2) k/uL Sodium (137-145) mmol/L Potassium (3.5-5.1) mmol/L Chloride (98-107) mmol/L Carbon Dioxide (22-30) mmol/L Anion Gap mmol/L BUN (7-17) mg/dL Creatinine (0.52-1.04) mg/dL Est GFR (CKD-EPI)AfAm (>60 ml/min/1.73 sqM) Est GFR (CKD-EPI)NonAf (>60 ml/min/1.73 sqM) Glucose (74-99) mg/dL Plasma Lactic Acid Emanuel (0.7-2.0) mmol/L Calcium (8.4-10.2) mg/dL Phosphorus (2.5-4.5) mg/dL Magnesium (1.6-2.3) mg/dL Total Bilirubin (0.2-1.3) mg/dL AST (14-36) U/L ALT (4-34) U/L Alkaline Phosphatase (38-126) U/L Troponin I <0.012 (0.000-0.034) ng/mL C-Reactive Protein (<1.0) mg/dL Total Protein (6.3-8.2) g/dL Albumin (3.5-5.0) g/dL - EKG Data -: EKG Interpreted by Me (EKG shows sinus rhythm 61 AK 157 QRS 92 QTC 389) - Radiology Data Radiology results: report reviewed (Chest x-rays negative for acute disease), image reviewed Disposition Clinical Impression: Postoperative pain, Left shoulder pain Disposition: HOME SELF-CARE Condition: Good Instructions (If sedation given, give patient instructions): Shoulder Pain (ED) Is patient prescribed a controlled substance at d/c from ED?: No Referrals: Angel Becker MD [Primary Care Provider] - 1-2 days Time of Disposition: 06:40
[2021-10-12] MEDS ORDERED: ACETAMINOPHEN TAB 500 MG TAB PO STA (05:33)
[2021-10-12] MEDS ORDERED: SODIUM CHLORIDE 0.9% 1,000 ML IV STA (05:33)
[2021-10-12] MEDS ORDERED: MORPHINE SULFATE 4 MG/ML SYRINGE IV STA (05:33)
[2021-10-12] MEDS ORDERED: KETOROLAC 15 MG/ML 1 ML VIAL IVP STA (05:34)
[2021-10-12 05:56] LABS: Basophils % (A) 1 %; Eosinophils # (A) 0.1 k/uL (0-0.7); Eosinophils % (A) 3 %; HCT 44.2 % (34.0-46.0); HGB 14.3 gm/dL (11.4-16.0); Lymphocytes # (A) 1.3 k/uL (1.0-4.8); Lymphocytes % (A) 25 %; MCH 28.3 pg (25.0-35.0); MCHC 32.4 g/dL (31.0-37.0); MCV 87.2 fL (80.0-100.0); Mean Platelet Volume 7.5; Monocytes # (A) 0.3 k/uL (0-1.0); Monocytes % (A) 7 %; Neutrophils # (A) 3.2 k/uL (1.3-7.7); Neutrophils % (A) 63 %; Platelet Count 264 k/uL (150-450); RBC 5.07 m/uL (3.80-5.40); RDW 12.3 % (11.5-15.5); WBC 5.1 k/uL (3.8-10.6)
[2021-10-12 06:10] LABS: ALT 26 U/L (4-34); AST 31 U/L (14-36); African American GFR (CKD) >90 (>60 ml/min/1.73 sqM); Albumin 4.7 g/dL (3.5-5.0); Alkaline Phosphatase 46 U/L (38-126); Anion Gap 7 mmol/L; Blood Urea Nitrogen 16 mg/dL (7-17); C Reactive Protein <0.5 mg/dL (<1.0); Calcium 9.2 mg/dL (8.4-10.2); Carbon Dioxide 24 mmol/L (22-30); Chloride 108 mmol/L (98-107); Glucose 107 mg/dL (74-99); Magnesium 1.9 mg/dL (1.6-2.3); Non-African American GFR(CKD) >90 (>60 ml/min/1.73 sqM); Phosphorus 3.4 mg/dL (2.5-4.5); Potassium 4.2 mmol/L (3.5-5.1); Sodium 139 mmol/L (137-145); Total Bilirubin 1.5 mg/dL (0.2-1.3); Total Protein 7.1 g/dL (6.3-8.2)
--- NOTE | 2021-10-12 06:53 | XR ---
EXAMINATION TYPE: XR chest 2V DATE OF EXAM: 10/12/2021 COMPARISON: 09/05/2021 HISTORY: 25-year-old female with weakness TECHNIQUE: PA and lateral views FINDINGS: Left anterior chest wall ICD generator with right ventricular lead. Heart normal size. Aorta and pulm onary vasculature within normal limits. No consolidation or pleural effusion. IMPRESSION: No acute cardiopulmonary process.
[2021-10-12] MEDS ORDERED: traMADol 50 MG STARTER PACK 3 TAB BTL PO STA (06:55)
[2021-10-12 07:00] VITALS: BP 138/74; PULSE 75
== END 2021-10-12 07:00 | disposition home or self-care (01) ==
LOC: EC 05:03
DX: G89.18 Other acute postprocedural pain (principal); M25.512 Pain in left shoulder
CPT/HCPCS: 36415; 93005; 80053; 83605; 83735; 84100; 84484; 85025; 86140; 87040; 71046; 99284; 96374; 96361; 96375; J2270; J1885

== ENCOUNTER 2022-04-20 05:35 | Emergency (ER) | payer OTHER ==
[2022-04-20 05:40] VITALS: RESP 18
[2022-04-20] MEDS ORDERED: KETOROLAC 15 MG/ML 1 ML VIAL IM STA (05:48)
[2022-04-20] MEDS ORDERED: TRIMETHOBENZAMIDE 100 MG/ML 2 ML VIAL IM STA (05:48)
--- NOTE | 2022-04-20 05:52 | ED ---
General Adult HPI - General Chief complaint: Upper Respiratory Infection Stated complaint: Body aches, chills Time Seen by Provider: 04/20/22 05:47 Source: patient Mode of arrival: ambulatory Limitations: no limitations - History of Present Illness Initial comments: This is a 26-year-old female with a past medical history including long QT syndrome with ICD implanted presented to the emergency department for body aches, chills, nausea and vomiting. The patient stated that her son had tested positive for COVID-19 with an at-home test several days ago but he had been quarantine in his room. The patient stated that starting yesterday she started to experience a sore throat woke up this morning at 2:30 in the morning with severe body aches, chills as well as fevers and nausea. The patient did take Tylenol yesterday and this morning without any relief. The patient stated that because of her long QT syndrome and ICD placement, the patient wanted make sure he was okay and get tested for: as well as the flu. The patient denied any other acute pain or complaints at this time and was resting in bed comfortably. - Related Data Home Medications Medication Instructions Recorded Confirmed Metoprolol Succinate (ER) [Toprol 50 mg PO HS 03/12/20 05/30/21 XL] Ascorbic Acid [Vitamin C] 1,000 mg PO DAILY 05/30/21 05/30/21 Previous Rx's Medication Instructions Recorded LORazepam [Ativan] 0.5 mg PO TID PRN #9 tab 09/06/21 Allergies Allergy/AdvReac Type Severity Reaction Status Date / Time No Known Allergies Allergy Verified 04/20/22 05:37 Review of Systems ROS Statement: Those systems with pertinent positive or pertinent negative responses have been documented in the HPI. ROS Other: All systems not noted in ROS Statement are negative. 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 History of cardiac arrest in 2010, kidney stones History of Any Multi-Drug Resistant Organisms: None Reported Past Surgical History: AICD, Pacemaker Additional Past Surgical History / Comment(s): kidney stent and removal Past Anesthesia/Blood Transfusion Reactions: Motion Sickness Additional Past Anesthesia/Blood Transfusion Reaction / Comment(s): Pt has clausterphobia. Type of Cardiac Device: Permanent Pacemaker, AICD Device Placement Date:: 08/03/10 Past Psychological History: No Psychological Hx Reported Smoking Status: Never smoker Past Alcohol Use History: None Reported Past Drug Use History: Marijuana - Past Family History Father Family Medical History: No Reported History Additional Family Medical History / Comment(s): Father is healthy Mother Family Medical History: Asthma, Thyroid Disorder General Exam Limitations: no limitations General appearance: alert, in no apparent distress Head exam: Present: atraumatic, normocephalic Eye exam: Present: normal appearance, PERRL Pupils: Present: normal accommodation ENT exam: Present: normal exam, normal oropharynx, mucous membranes moist Neck exam: Present: normal inspection, full ROM Respiratory exam: Present: normal lung sounds bilaterally Cardiovascular Exam: Present: regular rate, normal rhythm, normal heart sounds GI/Abdominal exam: Present: soft, normal bowel sounds Extremities exam: Present: normal inspection, full ROM Back exam: Present: normal inspection, full ROM Neurological exam: Present: alert, oriented X3, CN II-XII intact Psychiatric exam: Present: normal affect, normal mood Skin exam: Present: warm, dry Course Vital Signs 04/20/22 04/20/22 05:37 05:43 Temperature 98.1 F Pulse Rate 77 Respiratory 18 18 Rate Blood Pressure 112/64 O2 Sat by Pulse 98 Oximetry Medical Decision Making - Medical Decision Making Was pt. sent in by a medical professional or institution? @ No Did you speak to anyone other than the patient for history? @ No Did you review nursing and triage notes? @Nursing and triage notes reviewed Were old charts reviewed? @None Differential Diagnosis? @Upper respiratory infection, COVID-19, influenza, RSV EKG interpreted by me (3pts min.)? @ [none] X-rays interpreted by me (1pt min.)? @ [none] CT interpreted by me (1pt min.)? @ [none] U/S interpreted by me (1pt. min.)? @ [none] What testing was considered but not performed? (CT, X-rays, U/S, labs)? Why? @X-ray was considered however the patient had clear breath sounds bilaterally and denied any shortness of breath or difficulty in breathing therefore chest x- ray was not ordered at this time. What meds were considered but not given? Why? @Zofran was considered however the patient doesn't a history of long QT therefore Tigan was given and Toradol Did you discuss the management of the patient with other professionals? @None Did you reconcile home meds? @ [none] Was smoking cessation discussed for >3mins.? @ [none] Was critical care preformed (if so, how long)? @ [none] Were there social determinants of health that impacted care today? How? (Homelessness, low income, unemployed, alcoholism, drug addiction, transportati on, low edu. Level, literacy, decrease access to med. care, prison, rehab)? @None Was there de-escalation of care discussed even if they declined? (Discuss DNR or withdrawal of care, Hospice)? @None What co-morbidities impacted this encounter? (DM, HTN, Smoking, COPD, CAD, Cancer, CVA, Hep., AIDS, mental health diagnosis, sleep apnea, morbid obesity)? @Long QT, ICD placement Was patient admitted / discharged? @The patient was COVID-19 positive. After the patient received Tigan and Zofran, on reevaluation the patient stated that she had improvement of her symptoms and was able to sleep comfortably. The patient denied of any other acute findings and vital signs remain stable. The patient was discharged home in stable condition. Undiagnosed new problem with uncertain prognosis? @ [none] Drug Therapy requiring intensive monitoring for toxicity (Heparin, Nitro, Insulin, Cardizem)? @ [none] Were any procedures done? @ [none] Diagnosis/symptom? @COVID-19, body aches, fevers and chills Acute, or Chronic, or Acute on Chronic? @Acute Uncomplicated (without systemic symptoms) or Complicated (systemic symptoms)? @Complicated Side effects of treatment? @ [none] Exacerbation, Progression, or Severe Exacerbation] @ [no] Poses a threat to life or bodily function? @ [no] - Lab Data Lab Results 04/20/22 Range/Units 05:53 Influenza Type A (PCR) Not Detected (Not Detectd) Influenza Type B (PCR) Not Detected (Not Detectd) RSV (PCR) Not Detected (Not Detectd) SARS-CoV-2 (PCR) Detected A (Not Detectd) Disposition Clinical Impression: COVID-19 Disposition: HOME SELF-CARE Condition: Stable Instructions (If sedation given, give patient instructions): COVID-19 (Coronavirus Disease 2019) (ED) Is patient prescribed a controlled substance at d/c from ED?: No Referrals: Angel Becker MD [Primary Care Provider] - 1-2 days Time of Disposition: 06:50
[2022-04-20 06:59] VITALS: BP 110/78; PULSE 72; TEMP 97
== END 2022-04-20 06:59 | disposition home or self-care (01) ==
LOC: EC 05:35
DX: U07.1 COVID-19 (principal); F12.90 Cannabis use, unspecified, uncomplicated
CPT/HCPCS: 87636; 99283; 96372 ×2; J3250; J1885

== ENCOUNTER → 2022-06-01 | Outpatient (CLI) | payer OTHER ==
--- NOTE | 2022-06-01 15:39 | US ---
EXAMINATION TYPE: US mass soft tissue chest/back DATE OF EXAM: 06/01/2022 COMPARISON: NONE CLINICAL HISTORY: R22.9 LOCALIZED SWELLING, MASS AND LUMP, UNSPECIFI. At the proximal area of internal oblique the patient has a palpable mass. This mass in well circumscr ibed and measures 1.5 x 1.0 x 2.9cm and may represent a lipoma. FINDINGS: IMPRESSION: Possible lipoma
== END | disposition home or self-care (01) ==
LOC: RADUSWWP 14:53
PROVIDERS: ATTEND Family Medicine
DX: R22.2 Localized swelling, mass and lump, trunk (principal)

== ENCOUNTER 2022-07-25 18:39 | Emergency (ER) | payer OTHER ==
[2022-07-25] MEDS ORDERED: SODIUM CHLORIDE 0.9% 1,000 ML IV STA (19:12)
[2022-07-25] MEDS ORDERED: KETOROLAC 15 MG/ML 1 ML VIAL IVP STA (19:12)
[2022-07-25] MEDS ORDERED: ONDANSETRON 4 MG/2 ML VIAL IVP STA (19:12)
--- NOTE | 2022-07-25 19:20 | ED ---
Back Pain HPI - General Chief Complaint: Back Pain/Injury Stated Complaint: back pain Time Seen by Provider: 07/25/22 18:58 Source: patient, RN notes reviewed Mode of arrival: ambulatory Limitations: no limitations - History of Present Illness Initial Comments: This is a 26-year-old female who presents to the emergency department with left lower back pain. Patient states that last month she was diagnosed with a tumor on the left side of her lower back. This was diagnosed with an ultrasound that was done here. Over the course of the last month, she has had increasing pain to this area, and believes that it may be compressing a nerve, as she has been experiencing increasing shooting pain going up and down the left leg as well as nausea and vomiting. Denies any loss of bowel/bladder control. She is supposed to see a specialist at the end of July to discuss treatment options. She is on her feet a lot at work and states that she cannot manage the pain. She has only tried taking Tylenol, which she states is not effective. Additionally, she notes a sore that seems to be on top of this tumor that appeared 2 days ago. She initially thought that this was a pimple, but has not been able to get anything out of it. Denies any fevers, chills, sore throat, cough, dyspnea, chest pain, palpitations, abdominal pain, diarrhea, or headaches. MD Complaint: back pain Onset/Timin -: month(s) - Related Data Home Medications Medication Instructions Recorded Confirmed Metoprolol Succinate (ER) [Toprol 50 mg PO HS 03/12/20 05/30/21 XL] Ascorbic Acid [Vitamin C] 1,000 mg PO DAILY 05/30/21 05/30/21 Previous Rx's Medication Instructions Recorded LORazepam [Ativan] 0.5 mg PO TID PRN #9 tab 09/06/21 Diclofenac Sodium [Voltaren] 75 mg PO BID PRN #15 tab 07/25/22 Metoclopramide [Reglan] 10 mg PO Q6H PRN #20 tab 07/25/22 Allergies Allergy/AdvReac Type Severity Reaction Status Date / Time ondansetron [From Zofran] AdvReac Unknown Verified 07/25/22 19:39 Review of Systems ROS Statement: Those systems with pertinent positive or pertinent negative responses have been documented in the HPI. ROS Other: All systems not noted in ROS Statement are negative. 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 History of cardiac arrest in 2010, kidney stones History of Any Multi-Drug Resistant Organisms: None Reported Past Surgical History: AICD, Pacemaker Additional Past Surgical History / Comment(s): kidney stent and removal Past Anesthesia/Blood Transfusion Reactions: Motion Sickness Additional Past Anesthesia/Blood Transfusion Reaction / Comment(s): Pt has clausterphobia. Type of Cardiac Device: Permanent Pacemaker, AICD Device Placement Date:: 08/03/10 Past Psychological History: No Psychological Hx Reported Smoking Status: Never smoker Past Alcohol Use History: None Reported Past Drug Use History: Marijuana - Past Family History Father Family Medical History: No Reported History Additional Family Medical History / Comment(s): Father is healthy Mother Family Medical History: Asthma, Thyroid Disorder General Exam Limitations: no limitations General appearance: alert, in no apparent distress Head exam: Present: atraumatic, normocephalic, normal inspection Respiratory exam: Present: normal lung sounds bilaterally. Absent: respiratory distress, wheezes, rales, rhonchi, stridor Cardiovascular Exam: Present: regular rate, normal rhythm, normal heart sounds. Absent: systolic murmur, diastolic murmur, rubs, gallop, clicks Back exam: Present: full ROM, tenderness (To the left side of the lumbar spine.) Neurological exam: Present: alert, oriented X3, CN II-XII intact Psychiatric exam: Present: normal affect, normal mood Skin exam: Present: other (Small erythematouos papular lesion on the left lower back. No active drainage. ) Course Vital Signs 07/25/22 07/25/22 07/25/22 18:54 19:44 22:07 Temperature 98 F 98.6 F Pulse Rate 67 60 58 L Respiratory 18 16 16 Rate Blood Pressure 139/86 110/73 117/69 O2 Sat by Pulse 99 100 97 Oximetry Medical Decision Making - Medical Decision Making This is a 26-year-old female who presents to the emergency department for left lower back pain. Was pt. sent in by a medical professional or institution? @ -No Did you speak to anyone other than the patient for history? @ -No Did you review nursing and triage notes? @ -Yes, and I agree, it is accurate with regards to the patient's symptoms. Were old charts reviewed? @ -Soft tissue US from 06/01/22 showing a lipoma on the left lower back. Differential Diagnosis? @ -Differential Back Pain: Strain, zoster, cauda equina syndrome, epidural abscess, vertebral osteomyelitis, discitis, fracture, subluxation, disc herniation, DJD, spinal stenosis, dissection, AAA, pancreatitis, peptic ulcer disease, pyelonephritis, kidney stone, this is not meant to be an all-inclusive list. CT interpreted by me (1pt min.)? @ -Computed tomography scan of the lumbar spine obtained. My interpretation identifies no evidence of a mass throughout the lumbar spine or surrounding ti ssue. What testing was considered but not performed? (CT, X-rays, U/S, labs)? Why? @ -None What meds were considered but not given? Why? @ -None Did you discuss the management of the patient with other professionals? @ -No Did you reconcile home meds? @ -No Was smoking cessation discussed for >3mins.? @ -No Was critical care preformed (if so, how long)? @ -No Were there social determinants of health that impacted care today? How? (Homelessness, low income, unemployed, alcoholism, drug addiction, transportation, low edu. Level, literacy, decrease access to med. care, halfway, rehab)? @ -No Was there de-escalation of care discussed even if they declined? (Discuss DNR or withdrawal of care, Hospice)? @ -No What co-morbidities impacted this encounter? (DM, HTN, Smoking, COPD, CAD, Cancer, CVA, Hep., AIDS, mental health diagnosis, sleep apnea, morbid obesity)? @ -None Was patient admitted / discharged? @ -Discharged. Lab work obtained and found to be nonactionable. Patient given IV fluids, Toradol, and Morphine, which significantly improved symptoms. Computed tomography scan of the lumbar spine reveals no evidence of tumors or masses. The small lump that she has on her lower back appears similar to that of a pimple. There is no surrounding erythema, swelling, or increased heat to suggest an infectious process. Discussed with the patient that the ultrasound from 06/01 revealed a lipoma near the proximal left internal oblique muscle. Patient was educated on lipomas, in that they are benign fatty tumors. We will aim to manage her symptoms of nausea and pain until she can follow-up with the specialist. Rx for diclofenac and Reglan provided with dosing instructions reviewed. She is instructed to avoid any over the counter anti-inflammatories such as ibuprofen with the diclofenac and to only take it with Tylenol. Undiagnosed new problem with uncertain prognosis? @ -None Drug Therapy requiring intensive monitoring for toxicity (Heparin, Nitro, Insulin, Cardizem)? @ -None Were any procedures done? @ -None Diagnosis/symptom? @ -Lipoma of lower back Acute, or Chronic, or Acute on Chronic? @ -Chronic Uncomplicated (without systemic symptoms) or Complicated (systemic symptoms)? @ -Uncomplicated Side effects of treatment? @ -None Exacerbation, Progression, or Severe Exacerbation] @ -Exacerbation Poses a threat to life or bodily function? @ -No Return precautions reviewed in depth, the patient is instructed to return to the emergency department with any new, worsening, or concerning symptoms. Patient verbalized understanding. This case was discussed in detail with the attending ED physician, Dr. Whitehead. Presentation, findings, and treatment plan discussed in detail as well. - Lab Data Result diagrams: 07/25/22 19:23 07/25/22 19:23 Lab Results 07/25/22 07/25/22 07/25/22 Range/Units 19: 19: 19:26 WBC 5.2 (3.8-10.6) k/uL RBC 4.71 (3.80-5.40) m/uL Hgb 13.8 (11.4-16.0) gm/dL Hct 40.3 (34.0-46.0) % MCV 85.6 (80.0-100.0) fL MCH 29.3 (25.0-35.0) pg MCHC 34.3 (31.0-37.0) g/dL RDW 12.0 (11.5-15.5) % Plt Count 252 (150-450) k/uL MPV 7.1 Neutrophils % 52 % Lymphocytes % 37 % Monocytes % 7 % Eosinophils % 2 % Basophils % 0 % Neutrophils # 2.7 (1.3-7.7) k/uL Lymphocytes # 1.9 (1.0-4.8) k/uL Monocytes # 0.4 (0-1.0) k/uL Eosinophils # 0.1 (0-0.7) k/uL Basophils # 0.0 (0-0.2) k/uL ESR Cancelled Sodium 139 (137-145) mmol/L Potassium 4.2 (3.5-5.1) mmol/L Chloride 108 H (98-107) mmol/L Carbon Dioxide 25 (22-30) mmol/L Anion Gap 6 mmol/L BUN 12 (7-17) mg/dL Creatinine 0.67 (0.52-1.04) mg/dL Est GFR (CKD-EPI)AfAm >90 (>60 ml/min/1.73 sqM) Est GFR (CKD-EPI)NonAf >90 (>60 ml/min/1.73 sqM) Glucose 80 (74-99) mg/dL Plasma Lactic Acid Emanuel 0.9 (0.7-2.0) mmol/L Calcium 9.4 (8.4-10.2) mg/dL Total Bilirubin 1.4 H (0.2-1.3) mg/dL AST 25 (14-36) U/L ALT 16 (4-34) U/L Alkaline Phosphatase 54 (38-126) U/L C-Reactive Protein <0.5 (<1.0) mg/dL Total Protein 7.1 (6.3-8.2) g/dL Albumin 4.6 (3.5-5.0) g/dL TSH 0.472 (0.465-4.680) mIU/L Urine Color Urine Appearance (Clear) Urine pH (5.0-8.0) Ur Specific [place] (1.001-1.035) Urine Protein (Negative) Urine Glucose (UA) (Negative) Urine Ketones (Negative) Urine Blood (Negative) Urine Nitrite (Negative) Urine Bilirubin (Negative) Urine Urobilinogen (<2.0) mg/dL Ur Leukocyte Esterase (Negative) Urine HCG, Qual (Not Detectd) 07/25/22 07/25/22 Range/Units 20:02 20:02 WBC (3.8-10.6) k/uL RBC (3.80-5.40) m/uL Hgb (11.4-16.0) gm/dL Hct (34.0-46.0) % MCV (80.0-100.0) fL MCH (25.0-35.0) pg MCHC (31.0-37.0) g/dL RDW (11.5-15.5) % Plt Count (150-450) k/uL MPV Neutrophils % % Lymphocytes % % Monocytes % % Eosinophils % % Basophils % % Neutrophils # (1.3-7.7) k/uL Lymphocytes # (1.0-4.8) k/uL Monocytes # (0-1.0) k/uL Eosinophils # (0-0.7) k/uL Basophils # (0-0.2) k/uL ESR Sodium (137-145) mmol/L Potassium (3.5-5.1) mmol/L Chloride (98-107) mmol/L Carbon Dioxide (22-30) mmol/L Anion Gap mmol/L BUN (7-17) mg/dL Creatinine (0.52-1.04) mg/dL Est GFR (CKD-EPI)AfAm (>60 ml/min/1.73 sqM) Est GFR (CKD-EPI)NonAf (>60 ml/min/1.73 sqM) Glucose (74-99) mg/dL Plasma Lactic Acid Emanuel (0.7-2.0) mmol/L Calcium (8.4-10.2) mg/dL Total Bilirubin (0.2-1.3) mg/dL AST (14-36) U/L ALT (4-34) U/L Alkaline Phosphatase (38-126) U/L C-Reactive Protein (<1.0) mg/dL Total Protein (6.3-8.2) g/dL Albumin (3.5-5.0) g/dL TSH (0.465-4.680) mIU/L Urine Color Yellow Urine Appearance Clear (Clear) Urine pH 6.5 (5.0-8.0) Ur Specific [place] 1.019 (1.001-1.035) Urine Protein Negative (Negative) Urine Glucose (UA) Negative (Negative) Urine Ketones Negative (Negative) Urine Blood Negative (Negative) Urine Nitrite Negative (Negative) Urine Bilirubin Negative (Negative) Urine Urobilinogen <2.0 (<2.0) mg/dL Ur Leukocyte Esterase Negative (Negative) Urine HCG, Qual Not Detected (Not Detectd) - Radiology Data Radiology results: report reviewed, image reviewed Disposition Clinical Impression: Lipoma of lower back Disposition: HOME SELF-CARE Instructions (If sedation given, give patient instructions): Lipoma (ED) Additional Instructions: Return to the emergency department with any new, worsening, or concerning symptoms. You can take the diclofenac twice daily as needed for pain. Do not take any other shcy-aar-oousfgu anti-inflammatories such as ibuprofen when taking this. You may take it with Tylenol. The Reglan can be taken up to every 6 hours as needed for nausea and vomiting. Alternate with ice and heat if needed. Follow up with your primary care provider in 1-2 days. Prescriptions: Metoclopramide [Reglan] 10 mg PO Q6H PRN #20 tab PRN Reason: Nausea And Vomiting Diclofenac Sodium [Voltaren] 75 mg PO BID PRN #15 tab PRN Reason: Pain Is patient prescribed a controlled substance at d/c from ED?: No Referrals: Angel Becker MD [Primary Care Provider] - 1-2 days
[2022-07-25 19:45] VITALS: RESP 16
[2022-07-25 20:04] LABS: Basophils % (A) 0 %; Eosinophils # (A) 0.1 k/uL (0-0.7); Eosinophils % (A) 2 %; HCT 40.3 % (34.0-46.0); HGB 13.8 gm/dL (11.4-16.0); Lymphocytes # (A) 1.9 k/uL (1.0-4.8); Lymphocytes % (A) 37 %; MCH 29.3 pg (25.0-35.0); MCHC 34.3 g/dL (31.0-37.0); MCV 85.6 fL (80.0-100.0); Mean Platelet Volume 7.1; Monocytes # (A) 0.4 k/uL (0-1.0); Monocytes % (A) 7 %; Neutrophils # (A) 2.7 k/uL (1.3-7.7); Neutrophils % (A) 52 %; Platelet Count 252 k/uL (150-450); RBC 4.71 m/uL (3.80-5.40); WBC 5.2 k/uL (3.8-10.6)
[2022-07-25 20:14] LABS: ALT 16 U/L (4-34); AST 25 U/L (14-36); African American GFR (CKD) >90 (>60 ml/min/1.73 sqM); Albumin 4.6 g/dL (3.5-5.0); Alkaline Phosphatase 54 U/L (38-126); Anion Gap 6 mmol/L; Blood Urea Nitrogen 12 mg/dL (7-17); C Reactive Protein <0.5 mg/dL (<1.0); Calcium 9.4 mg/dL (8.4-10.2); Carbon Dioxide 25 mmol/L (22-30); Chloride 108 mmol/L (98-107); Glucose 80 mg/dL (74-99); Non-African American GFR(CKD) >90 (>60 ml/min/1.73 sqM); Potassium 4.2 mmol/L (3.5-5.1); Sodium 139 mmol/L (137-145); Total Bilirubin 1.4 mg/dL (0.2-1.3); Total Protein 7.1 g/dL (6.3-8.2)
[2022-07-25 20:30] LABS: Appearance,Urine Clear (Clear); Bilirubin,Urine Negative (Negative); Blood,Urine Negative (Negative); Color,Urine Yellow; Glucose,Urine (UA) Negative (Negative); Ketones,Urine Negative (Negative); Leukocyte Esterase,Urine Negative (Negative); Nitrite,Urine Negative (Negative); PH, Urine 6.5 (5.0-8.0); Protein,Urine Negative (Negative); Specific Gravity,Urine 1.019 (1.001-1.035); Urobilinogen,Urine <2.0 mg/dL (<2.0)
--- NOTE | 2022-07-25 21:29 | CT ---
EXAMINATION TYPE: CT lumbar spine wo/w con DATE OF EXAM: 07/25/2022 COMPARISON: None HISTORY: pain, hx of tumor. CT DLP: 1405.2 mGycm Automated exposure control for dose reduction was used. CONTRAST: Performed with IV Contrast, patient injected with mL of Isovue 300. Images obtained from T12 to S3 vertebral without and with the IV contrast. There is 2 mm calculus in the interpolar right kidney. There is 2 mm calculus lower pole left kidney. No hydronephrosis. Ureters are not dilated. The lumbar vertebrae have normal alignment. Disc spaces are fairly normal. Posterior elements are int act. No compression fracture. Facet joints are intact. No evidence of spinal stenosis. No evidence of any significant lumbar disc herniation. There is no lumbar paraspinal mass. The sacroiliac joints ar e intact. The contrast images show no pathologic enhancement. No focal bone destruction. IMPRESSION: Exam fails to demonstrate focal abnormality of the lumbar spine. No evidence of a mass. Bilateral renal calculi noted. No evidence of any significant renal obstruction.
[2022-07-25] MEDS ORDERED: ACET/COD 300 MG/30 MG STARTER PACK 6 TAB BTL PO STA (21:44)
[2022-07-25] MEDS ORDERED: IBUPROFEN 600 MG STARTER PACK 4 TAB BTL PO STA (21:44)
[2022-07-25 22:09] VITALS: BP 117/69; PULSE 58; TEMP 98.6
== END 2022-07-25 22:07 | disposition home or self-care (01) ==
LOC: EC 18:39
DX: D17.79 Benign lipomatous neoplasm of other sites (principal); F12.90 Cannabis use, unspecified, uncomplicated; Z88.8 Allergy status to other drugs, medicaments and biological substances
CPT/HCPCS: 36415; 80053; 85652; 84443; 83605; 85025; 86140; 81003; 81025; 72133; 99284; 96374; 96361; J1885; Q9967

== ENCOUNTER 2022-09-30 05:58 | Day surgery (SDC) | payer OTHER ==
[2022-09-29 09:21] VITALS: BMI 23.5
[~2022-09-30 05:58] MED LIST: ACETAMINOPHEN TAB 500 MG TAB PO PRN; DEXAMETHASONE SOD PHOSPHATE 4 MG/ML 1 ML VIAL IV ONE; HEPARIN SODIUM,PORCINE/PF 5,000 UNIT/0.5 ML SYRINGE SQ PRN; LACTATED RINGERS 1,000 ML IV SCH; Pre Op ABX Message 1 EACH MISC MISCELLANE ONE; fentaNYL (PF) 50 MCG/ML 2 ML AMP IV PRN
[2022-09-30 06:53] VITALS: RESP 16; TEMP 97.1
[2022-09-30] MEDS ORDERED: LIDOCAINE 1% (10MG/ML) FOR IV START INTRADERMA ONE (07:02)
[2022-09-30] MEDS ORDERED: HEPARIN SODIUM,PORCINE/PF 5,000 UNIT/0.5 ML SYRINGE SQ ONE (07:05)
[2022-09-30] MEDS ORDERED: MIDAZOLAM 2 MG/2 ML VIAL ONE (07:24)
[2022-09-30] MEDS ORDERED: PROPOFOL 10 MG/ML 20 ML VIAL IV ONE (07:24)
[2022-09-30] MEDS ORDERED: fentaNYL (PF) 50 MCG/ML 2 ML AMP ONE (07:24)
[2022-09-30] MEDS ORDERED: KETAMINE 10 MG/ML 20 ML VIAL ONE (07:24)
--- NOTE | 2022-09-30 07:24 | P.GSHP ---
History of Present Illness H&P Date: 09/30/22 Chief Complaint: Lower back lipoma 26-year-old female here for excision left lower back lipoma. Patient has had a lump that is painful to her for the last year or so. Increasing in size. Hurts most when pressed against something. Pain shoots down the leg at times. No nu mbness. 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 History of cardiac arrest in 2010, kidney stones, LIPOMA ON LEFT LOWER BACK History of Any Multi-Drug Resistant Organisms: None Reported Past Surgical History: AICD, Pacemaker Additional Past Surgical History / Comment(s): kidney stent and removal OF STENT Past Anesthesia/Blood Transfusion Reactions: Motion Sickness Additional Past Anesthesia/Blood Transfusion Reaction / Comment(s): Pt has claustrophobia. Type of Cardiac Device: Permanent Pacemaker, AICD Device Placement Date:: 08/03/10 Smoking Status: Never smoker - Past Family History Father Family Medical History: No Reported History Additional Family Medical History / Comment(s): Father is healthy Mother Family Medical History: Asthma, Thyroid Disorder Medications and Allergies Home Medications Medication Instructions Recorded Confirmed Type Metoprolol Succinate (ER) [Toprol 50 mg PO HS 03/12/20 09/30/22 History XL] FLUoxetine HCL [PROzac] 20 mg PO HS 09/30/22 09/30/22 History Allergies Allergy/AdvReac Type Severity Reaction Status Date / Time ondansetron [From Zofran] AdvReac INTERACTS Verified 09/29/22 09:00 WITH AICD any QT prolonging RX AdvReac Severe Unknown Uncoded 09/30/22 06:57 Surgical - Exam Vital Signs Temp Pulse Resp BP Pulse Ox 97.1 F L 70 16 126/64 98 09/30/22 06:52 09/30/22 06:52 09/30/22 06:52 09/30/22 06:52 09/30/22 06:52 Physical exam: General: Well-developed, well-nourished HEENT: Normocephalic, sclerae nonicteric Abdomen: Nontender, nondistended Extremities: No edema, left lower back with 3.5 x 5 cm lipomatous mass, small 1- 1.5 cm lipoma right lower back Neuro: Alert and oriented Assessment and Plan (1) Lipoma Narrative/Plan: 26-year-old female with palpable symptomatic lipoma left lower back. We'll proceed with surgical excision at this time. Risks of bleeding, infection, recurrence, nerve injury, seroma reviewed. She understands and wishes to proceed. Current Visit: Yes Status: Acute Code(s): D17.9 - BENIGN LIPOMATOUS NEOPLASM, UNSPECIFIED SNOMED Code(s): 08926710
[2022-09-30] MEDS ORDERED: SODIUM CHLORIDE 0.9% 100 ML with ceFAZolin 1,000 MG IV ONE ×2 (07:29)
[2022-09-30] MEDS ORDERED: BUPIVACAINE (PF) 0.25% 30 ML VIAL SQ ONE ×2 (07:44)
[2022-09-30] MEDS ORDERED: ACETAMINOPHEN TAB 325 MG TAB PO PRN (08:23)
[2022-09-30] MEDS ORDERED: NALOXONE 0.4 MG/ML 1 ML VIAL IV PRN (08:23)
--- NOTE | 2022-09-30 08:27 | P.OP ---
Date of Procedure: 09/30/22 Procedure(s) Performed: PREOPERATIVE DIAGNOSIS: Left lower back lipoma POSTOPERATIVE DIAGNOSIS: Same PROCEDURE: Excision left lower back lipomatous masses SURGEON: Zohaib EBL: 10 mL ANESTHESIA: Sedation and local COMPLICATIONS: None OPERATIVE PROCEDURE: Patient placed in the right decubitus position. The left lower back is prepped and draped sterilely. A horizontal incision was made overlying the palpable mass. Subcutaneous tissues dissected using electrocautery. The patient had a total of 3 lipomatous masses stacked on top of one another. Each mass measured approximately 3 x 5 cm. These were sent to pathology for close examination. No additional lipomatous masses were noted. Subcutaneous tissues were closed using 3-0 Vicryl sutures. Skin closed using running 4-0 Monocryl suture. Skin glue applied. DISPOSITION: Stable to recovery room
[2022-09-30] MEDS ORDERED: Acetaminophen-Codeine 300-30mg TAB PO ONE (09:04)
[2022-09-30] MEDS ORDERED: Acetaminophen-Codeine 300-30mg TAB ONE (09:14)
[2022-09-30 09:30] VITALS: BP 106/68; PULSE 54
== END 2022-09-30 10:01 | disposition home or self-care (01) ==
LOC: OR 05:58
PROVIDERS: ATTEND Surgery
DX: D17.1 Benign lipomatous neoplasm of skin and subcutaneous tissue of trunk (principal); F12.90 Cannabis use, unspecified, uncomplicated; Z87.442 Personal history of urinary calculi; Z95.810 Presence of automatic (implantable) cardiac defibrillator; Z79.899 Other long term (current) drug therapy; Z88.8 Allergy status to other drugs, medicaments and biological substances
CPT/HCPCS: 81025; 88304; 21931; J2250; J1100; J0690; J3010; J2704; J1644

== ENCOUNTER 2023-04-15 22:29 | Observation (INO) | payer OTHER ==
[2023-04-15 23:25] LABS: Basophils % (A) 1 %; Eosinophils # (A) 0.1 k/uL (0-0.7); Eosinophils % (A) 2 %; HCT 41.3 % (34.0-46.0); HGB 13.8 gm/dL (11.4-16.0); Lymphocytes # (A) 2.4 k/uL (1.0-4.8); Lymphocytes % (A) 28 %; MCH 28.8 pg (25.0-35.0); MCHC 33.4 g/dL (31.0-37.0); MCV 86.1 fL (80.0-100.0); Monocytes # (A) 0.6 k/uL (0-1.0); Monocytes % (A) 7 %; Neutrophils # (A) 5.1 k/uL (1.3-7.7); Neutrophils % (A) 61 %; Platelet Count 260 k/uL (150-450); RBC 4.79 m/uL (3.80-5.40); RDW 12.3 % (11.5-15.5); WBC 8.4 k/uL (3.8-10.6)
[2023-04-15 23:34] LABS: Partial Thromboplastin Time 25.5 sec (22.0-30.0); Prothrombin Time 10.8 sec (10.0-12.5)
[2023-04-15 23:39] LABS: Potassium 3.8 mmol/L (3.5-5.1)
[2023-04-15 23:40] LABS: ALT 44 U/L (4-34); AST 49 U/L (14-36); African American GFR (CKD) >90 (>60 ml/min/1.73 sqM); Albumin 4.8 g/dL (3.5-5.0); Alkaline Phosphatase 69 U/L (38-126); Anion Gap 12 mmol/L; Blood Urea Nitrogen 15 mg/dL (7-17); Calcium 9.6 mg/dL (8.4-10.2); Carbon Dioxide 23 mmol/L (22-30); Chloride 104 mmol/L (98-107); Glucose 86 mg/dL (74-99); Non-African American GFR(CKD) >90 (>60 ml/min/1.73 sqM); Sodium 139 mmol/L (137-145); Total Bilirubin 1.5 mg/dL (0.2-1.3); Total Protein 7.6 g/dL (6.3-8.2)
--- NOTE | 2023-04-16 01:20 | ED ---
Chest Pain HPI - General Chief Complaint: Chest Pain Stated Complaint: chest pain, Heart pt Time Seen by Provider: 04/15/23 22:35 Source: patient Mode of arrival: ambulatory Limitations: no limitations - History of Present Illness Initial Comments: 27-year-old female with past nuchal history of prolonged QT with AICD placement who presents to the emergency department reporting chest pain. States that her pain started earlier in the day. Describes it as a sharp pressure over the left chest wall with radiation into her back. She has associated numbness to her left arm. She admits to mild respiratory insufficiency. No fevers. Admits nausea without vomiting. She does have significant cardiac history. She denies any abdominal pain. No fevers. 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 ROS Other: All systems not noted in ROS Statement are negative. 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 History of cardiac arrest in 2010, kidney stones, LIPOMA ON LEFT LOWER BACK History of Any Multi-Drug Resistant Organisms: None Reported Past Surgical History: AICD, Pacemaker Additional Past Surgical History / Comment(s): kidney stent and removal OF STENT Past Anesthesia/Blood Transfusion Reactions: Motion Sickness Additional Past Anesthesia/Blood Transfusion Reaction / Comment(s): Pt has claustrophobia. Type of Cardiac Device: Permanent Pacemaker, AICD Device Placement Date:: 08/03/10 Past Psychological History: No Psychological Hx Reported Smoking Status: Never smoker Past Alcohol Use History: None Reported Past Drug Use History: Marijuana - Past Family History Father Family Medical History: No Reported History Additional Family Medical History / Comment(s): Father is healthy Mother Family Medical History: Asthma, Thyroid Disorder General Exam Limitations: no limitations General appearance: alert, in no apparent distress Head exam: Present: atraumatic, normocephalic, normal inspection Eye exam: Present: normal appearance, PERRL, EOMI. Absent: scleral icterus, conjunctival injection, periorbital swelling ENT exam: Present: normal exam, mucous membranes moist Neck exam: Present: normal inspection. Absent: tenderness, meningismus, lymphadenopathy Respiratory exam: Present: normal lung sounds bilaterally. Absent: respiratory distress, wheezes, rales, rhonchi, stridor Cardiovascular Exam: Present: regular rate, normal rhythm, normal heart sounds. Absent: systolic murmur, diastolic murmur, rubs, gallop, clicks GI/Abdominal exam: Present: soft, normal bowel sounds. Absent: distended, tenderness, guarding, rebound, rigid Extremities exam: Present: normal inspection, full ROM, normal capillary refill. Absent: tenderness, pedal edema, joint swelling, calf tenderness Back exam: Present: normal inspection Neurological exam: Present: alert, oriented X3, CN II-XII intact Psychiatric exam: Present: normal affect, normal mood Skin exam: Present: warm, dry, intact, normal color. Absent: rash Course Vital Signs 04/15/23 04/15/23 04/16/23 22:31 23:00 01:00 Temperature 98.5 F Pulse Rate 105 H 103 H 78 Respiratory 16 18 18 Rate Blood Pressure 121/79 115/62 110/62 O2 Sat by Pulse 100 100 100 Oximetry 04/16/23 02:05 Temperature 98.2 F Pulse Rate 70 Respiratory 18 Rate Blood Pressure 96/52 O2 Sat by Pulse 100 Oximetry Chest Pain MDM - MDM Was pt. sent in by a medical professional or institution (Dr. PA, SPORTS BOOK SERVER, urgent care, hospital, or fpc...) When possible be specific @ -No Did you speak to anyone other than the patient for history (EMS, parent, family, police, friend...)? What history was obtained from this source @ -EMS Did you review nursing and triage notes (agree or disagree)? Why? @ -I reviewed and agree with nursing and triage notes Were old charts reviewed (outside hosp., previous admission, EMS record, old EKG, old radiological studies, urgent care reports/EKG's, fpc records)? Report findings @ -old charts were reviewed - last visit to ED was reviewed Differential Diagnosis (chest pain, altered mental status, abdominal pain women, abdominal pain men, vaginal bleeding, weakness, fever, dyspnea, syncope, headache, dizziness, GI bleed, back pain, seizure, CVA, palpatations, mental health, musculoskeletal)? @ -Differential Chest Pain: Stable Angina, Unstable Angina, STEMI, NSTEMI Aortic Dissection, Pneumothorax, Musculoskeletal, Esophageal Spasm GERD, Cholecystitis, Pancreatitis, Zoster, this is not meant to be an all-inclusive list. EKG interpreted by me (3pts min.). @ -yes and demonstrates sinus rhythm with a rate of 89. MA interval 146. QRS 112. QTC of 403. No acute ST segment elevations or depressions X-rays interpreted by me (1pt min.). @ -Yes and demonstrates no acute process CT interpreted by me (1pt min.). @ -None done U/S interpreted by me (1pt. min.). @ -None done What testing was considered but not performed or refused? (CT, X-rays, U/S, labs)? Why? @ -None What meds were considered but not given or refused? Why? @ -None Did you discuss the management of the patient with other professionals (professionals i.e. DrHorace, PA, SPORTS BOOK SERVER, lab, RT, psych nurse, forensic social worker, loan review manager, teacher, project officer, vocational case manager)? Give summary @ -Spoke with Dr. vanegas Was smoking cessation discussed for >3mins.? @ -No Was critical care preformed (if so, how long)? @ -No Were there social determinants of health that impacted care today? How? (Homelessness, low income, unemployed, alcoholism, drug addiction, transportation, low edu. Level, literacy, decrease access to med. care, [facility], rehab)? @ -No Was there de-escalation of care discussed even if they declined (Discuss DNR or withdrawal of care, Hospice)? DNR status @ -No What co-morbidities impacted this encounter? (DM, HTN, Smoking, COPD, CAD, Cancer, CVA, ARF, Chemo, Hep., AIDS, mental health diagnosis, sleep apnea, morbid obesity)? @ -history of prolonged QT Was patient admitted / discharged? Hospital course, mention meds given and route, prescriptions, significant lab abnormalities, going to OR and other pertinent info. @ -Upon arrival patient was placed into room 5. Thorough history and physical exam was performed. Patient placed on continuous pulse ox and cardiac monitoring. 12-lead EKG is obtained. Laboratory studies are conducted. Chest x-ray was performed. Patient's device was interrogated. Due to reported symptoms she will be admitted for chest pain with cardiac history. Patient was agreeable to admission. Spoke with dr vanegas for admission Undiagnosed new problem with uncertain prognosis? @ -No Drug Therapy requiring intensive monitoring for toxicity (Heparin, Nitro, Insulin, Cardizem)? @ -No Were any procedures done? @ -No Diagnosis/symptom? @ -Acute chest pain, history of prolonged QT syndrome with cardiac arrest Acute, or Chronic, or Acute on Chronic? @ -acute Uncomplicated (without systemic symptoms) or Complicated (systemic symptoms)? @ -Complicated Side effects of treatment? @ -No Exacerbation, Progression, or Severe Exacerbation? @ -No Poses a threat to life or bodily function? How? (Chest pain, [place], [place], pneumonia, PE, COPD, DKA, ARF, appy, cholecystitis, CVA, Diverticulitis, Homicidal, Suicidal, threat to staff... and all critical care pts) @ -No Disposition Clinical Impression: Chest pain, ICD (implantable cardioverter-defibrillator) in place, Prolonged QT interval Disposition: ADMITTED IP TO THIS HOSP Condition: Stable Is patient prescribed a controlled substance at d/c from ED?: No Time of Disposition: Decision to Admit Reason: Admit from EC Decision Date: 04/16/23 Decision Time:
--- NOTE | 2023-04-16 01:20 | XR ---
EXAM: XR Chest, 2 Views CLINICAL HISTORY: ITS.REASON XR Reason: Chest Pain TECHNIQUE: Frontal and lateral views of the chest. COMPARISON: No relevant prior studies available. FINDINGS: Lungs: Unremarkable. No consolidation. Pleural space: Unremarkable. No pneumothorax. No pleural effusions. Heart: Unremarkable. No cardiomegaly. Mediastinum: Unremarkable. Normal mediastinal contour. Bones/joints: No acute osseous abnormalities. Tubes, lines and devices: Left subclavian single lead transvenous pacemaker in position. IMPRESSION: No acute cardiopulmonary disease.
[2023-04-16] MEDS ORDERED: NALOXONE 0.4 MG/ML 1 ML VIAL IV PRN (01:22)
[2023-04-16] MEDS ORDERED: SODIUM CHLORIDE 0.9% 1,000 ML IV SCH (03:00)
--- NOTE | 2023-04-16 04:52 | P.HPIM ---
History of Present Illness H&P Date: 04/16/23 Chief Complaint: chest pain 27 year old female with history of prolonged QT s/p ICD she is coming in with sudden onset chest pain, started while sitting down resting , after finishing working on [employer] and wrapping. she describes central chest pain severe sharp, radiating to the left arm and numbness, associated with heavy breathing and vomiting, reports possible streaks of blood. denies any fever, chills, abd pain , changes in urinary or bowel habits. she does report chronic non productive cough . denies any acute URI symptoms . 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 she does recall 11 episodes of cardiac arrest (she counts every time her device fires, along with one episode of cardiac arrest when she was diagnosed with prolonged QT). this time she did not feel that her device has fired. denies being as she has hernan IUD. she admits to marijuana smoking, denies any alcohol or smoking denies any recent travel or history of blood clots, denies any GI or vaginal bleeding review of systems Pertinent positives as noted in HPI. All other systems were reviewed and are negative on exam Constitutional: No acute distress, ENMT: NC/AT Oropharynx clear, no erythema, or exudates Neck: Supple, no masses, or JVD No carotid bruits No thyromegaly Lungs: Clear to auscultation Clear to percussion Normal respiratory effort, no accessory muscle use Cardiovascular: Heart regular in rate and rhythm, systolic murmurs, no gallops, or rubs No peripheral edema Abdominal: Soft Nontender, no guarding, rebound or rigidity Abdomen moving with respiration Normoactive bowel sounds No hepatomegaly, No splenomegaly No palpable mass No abdominal wall hernia noted Extremities: No digital cyanosis No clubbing Pedal pulses intact and symmetrical Radial pulses intact and symmetrical No calf tenderness Psychiatric: Alert and oriented to person, place and time Neuro moving all 4 extremities spontaneously Past Medical History Past Medical History: Eye Disorder Additional Past Medical History / Comment(s): long QT syndrome, osteoporosis, 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 History of cardiac arrest in 2010, kidney stones, LIPOMA ON LEFT LOWER BACK History of Any Multi-Drug Resistant Organisms: None Reported Past Surgical History: AICD, Pacemaker Additional Past Surgical History / Comment(s): kidney stent and removal OF STENT Past Anesthesia/Blood Transfusion Reactions: No Reported Reaction Additional Past Anesthesia/Blood Transfusion Reaction / Comment(s): Pt has claustrophobia. Type of Cardiac Device: Permanent Pacemaker, AICD Device Placement Date:: 08/03/10 Past Psychological History: No Psychological Hx Reported Additional Psychological History / Comment(s): Pt reside at home with her trang and 5 children. Smoking Status: Never smoker Past Alcohol Use History: None Reported Past Drug Use History: Marijuana - Past Family History Father Family Medical History: No Reported History Additional Family Medical History / Comment(s): Father is healthy Mother Family Medical History: Asthma, Thyroid Disorder Additional Family Medical History / Comment(s): heidi's Medications and Allergies Home Medications Medication Instructions Recorded Confirmed Type Metoprolol Succinate (ER) [Toprol 50 mg PO HS 03/12/20 09/30/22 History XL] Acetaminophen-Codeine 300-30mg 1 tab PO Q4H PRN 3 Days #6 tablet 09/30/22 Rx [Tylenol w/codeine #3] FLUoxetine HCL [PROzac] 20 mg PO HS 09/30/22 09/30/22 History Allergies Allergy/AdvReac Type Severity Reaction Status Date / Time ondansetron [From Zofran] AdvReac INTERACTS Verified 04/15/23 22:31 WITH AICD any QT prolonging RX AdvReac Severe Unknown Uncoded 04/15/23 22:31 Physical Exam Vitals: Vital Signs Temp Pulse Pulse Resp BP BP Pulse Ox 04/16/23 04:19 69 16 103/63 97 04/16/23 02:14 98.0 F 85 18 131/69 97 04/16/23 02:05 98.2 F 70 18 96/52 100 04/16/23 01:00 78 18 110/62 100 04/15/23 23:00 103 H 18 115/62 100 04/15/23 22:31 98.5 F 105 H 16 121/79 100 Intake and Output 04/15/23 04/15/23 04/16/23 14:59 22:59 06:59 Other: Weight 70.307 kg 70.307 kg Results CBC & Chem 7: 04/15/23 23:18 04/15/23 23:18 Labs: Abnormal Lab Results - Last 24 Hours (Table) 12/16/23 Range/Units 23:18 Total Bilirubin 1.5 H (0.2-1.3) mg/dL AST 49 H (14-36) U/L ALT 44 H (4-34) U/L Thrombosis Risk Factor Assmnt - Choose All That Apply Any of the Below Risk Factors Present?: No Other Risk Factors: No Other congenital or acquired thrombophilia - If yes, enter type in comment: No Thrombosis Risk Factor Assessment Level: Very Low Risk Assessment and Plan Assessment: 27 year old female with long QT syndrome , s/p ICD with history of cardiac arrest, coming in for sudden onset chest pain while sitting down doing nothing, I discussed the case with ED doc and I accepted the admission for chest pain to rule out any arrhythmia or ACS with anticipated length of stay < 2 midnights chest pain negative trops trending EKG no acute ST changes hospital monitor cardiology consult prolonged QT syndrome history of cardiac arrest s/p ICD no report of device firing this time resume metoprolol EKG showed QTc within normal limits Mg 2.0 K 3.8 Na 139 renal function unremarkable BUN 15 , Cr 0.69 slightly elevated liver enzymes Bili 1.5 AST 49 ALT 44 if continues to trend up , consider gall bladder US no tenderness upon exam WBC 8 Hgb 13.8 unremarkable full code DVT PPX heparin sc tid
[2023-04-16] MEDS ORDERED: PANTOPRAZOLE 40 MG TABLET PO SCH (07:30)
[2023-04-16] MEDS ORDERED: HEPARIN SODIUM,PORCINE 5,000 UNIT/ML 1 ML VIAL SQ SCH (08:00)
[2023-04-16] MEDS ORDERED: ASPIRIN 81 MG PO SCH (09:00)
[2023-04-16 09:47] VITALS: TEMP 97.9
[2023-04-16 12:13] VITALS: BP 103/64; PULSE 76; RESP 18
--- NOTE | 2023-04-16 12:46 | P.CRDCN ---
History of Present Illness Consult date: 04/16/23 Consult reason: chest pain (Acute chest pain, history of prolonged QT, history of cardiac arrest with ICD) History of present illness: History of present illness: This is a 27-year-old female patient of Dr. Fritz with past medical history of prolonged QT and cardiac arrest at age 14 status post AICD initially placed in 2010 with generator change in June 2022. We have been asked to evaluate the patient for chest pain. Patient states that she has had chest pain on and off since Monday that was mild but on Monday after she was wrapping [employer] presents, she went into the kitchen and sat down and she had chest pain on the left side that was sharp and went to her left arm and her left hand went numb and cold and turn purple. She states symptoms all went away on their own without treatment. She denies shock from AICD. EKG sinus rhythm at 89 bpm Chest x-ray: No acute finding CBC, INR, d-dimer, electrolytes renal function are all within normal limits. Troponin negative 3. Urine hCG not detected. Magnesium 2.0. Total bilirubin 1.5, AST 49, ALT 44, alkaline phosphatase 69. Home cardiac medications: Patient possibly on Toprol-XL 50 mg at bedtime--medications not confirmed Review Of Systems: At the time of my exam: CONSTITUTIONAL: Denies fever or chills. CARDIOVASCULAR: Denies chest pain, Denies shortness of breath, no orthopnea, PND or palpitations. RESPIRATORY: Denies cough. GASTROINTESTINAL: Denies abdominal pain, diarrhea, constipation, nausea or vomiting. MUSCULOSKELETAL: Denies myalgias. NEUROLOGIC: Denies numbness, tingling or weakness. ENDOCRINE: Denies fatigue, weight change, polydipsia or polyurina. GENITOURINARY: Denies burning, hematuria or urgency with micturation. HEMATOLOGIC: Denies history of anemia or bleeding. Physical examination: Gen: This is a 27-year-old female resting in bed in no acute distress VS: reviewed HEENT: Head is atraumatic, normocephalic. Pupils equal, round. Sclerae is anicteric. NECK: Supple. No JVD. LUNGS: Clear to auscultation. No wheezes or rhonchi. No intercostal retractions. HEART: Regular rate and rhythm. No murmur. ABDOMEN: Soft No tenderness. EXTREMITIES: No pedal edema. No calf tenderness. NEUROLOGICAL: Patient is awake, alert and oriented x3. Assessment: Atypical chest pain, acute coronary syndrome ruled out History of prolonged QT and cardiac arrest status post AICD Plan: Interrogate AICD Patient is cleared for discharge from cardiology. Patient will follow with her primary weight tester following discharge. Thank you kindly for this consultation. Nurse practitioner note has been reviewed, I agree with documented findings and plan of care. Patient was seen and examined. 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 History of cardiac arrest in 2010, kidney stones, LIPOMA ON LEFT LOWER BACK History of Any Multi-Drug Resistant Organisms: None Reported Past Surgical History: AICD, Pacemaker Additional Past Surgical History / Comment(s): kidney stent and removal OF STENT Past Anesthesia/Blood Transfusion Reactions: Motion Sickness Additional Past Anesthesia/Blood Transfusion Reaction / Comment(s): Pt has claustrophobia. Type of Cardiac Device: Permanent Pacemaker, AICD Device Placement Date:: 08/03/10 Past Psychological History: No Psychological Hx Reported Smoking Status: Never smoker Past Alcohol Use History: None Reported Past Drug Use History: Marijuana - Past Family History Father Family Medical History: No Reported History Additional Family Medical History / Comment(s): Father is healthy Mother Family Medical History: Asthma, Thyroid Disorder Additional Family Medical History / Comment(s): heidi's Medications and Allergies Home Medications Medication Instructions Recorded Confirmed Type Metoprolol Succinate (ER) [Toprol 50 mg PO HS 03/12/20 04/16/23 History XL] Allergies Allergy/AdvReac Type Severity Reaction Status Date / Time ondansetron [From Zofran] AdvReac INTERACTS Verified 04/16/23 12:32 WITH AICD any QT prolonging RX AdvReac Severe Unknown Uncoded 04/15/23 22:31 Physical Exam Vitals: Vital Signs Temp Pulse Pulse Resp BP BP Pulse Ox 04/16/23 04:19 69 16 103/63 97 04/16/23 02:14 98.0 F 85 18 131/69 97 04/16/23 02:05 98.2 F 70 18 96/52 100 04/16/23 01:00 78 18 110/62 100 04/15/23 23:00 103 H 18 115/62 100 04/15/23 22:31 98.5 F 105 H 16 121/79 100 Intake and Output 04/15/23 04/16/23 04/16/23 22:59 06:59 14:59 Intake Total 540 Balance 540 Intake: Oral 540 Other: Weight 70.307 kg 70.307 kg Results 04/15/23 23:18 04/15/23 23:18 Cardiac Enzymes 04/15/23 04/15/23 04/16/23 Range/Units 23:18 23:18 03:35 AST 49 H (14-36) U/L Troponin I <0.012 <0.012 (0.000-0.034) ng/mL 04/16/23 Range/Units 07:13 AST (14-36) U/L Troponin I <0.012 (0.000-0.034) ng/mL Coagulation 04/15/23 Range/Units 23:18 PT 10.8 (10.0-12.5) sec APTT 25.5 (22.0-30.0) sec CBC 04/15/23 Range/Units 23:18 WBC 8.4 (3.8-10.6) k/uL RBC 4.79 (3.80-5.40) m/uL Hgb 13.8 (11.4-16.0) gm/dL Hct 41.3 (34.0-46.0) % Plt Count 260 (150-450) k/uL Comprehensive Metabolic Panel 04/15/23 Range/Units 23:18 Sodium 139 (137-145) mmol/L Potassium 3.8 (3.5-5.1) mmol/L Chloride 104 (98-107) mmol/L Carbon Dioxide 23 (22-30) mmol/L BUN 15 (7-17) mg/dL Creatinine 0.69 (0.52-1.04) mg/dL Glucose 86 (74-99) mg/dL Calcium 9.6 (8.4-10.2) mg/dL AST 49 H (14-36) U/L ALT 44 H (4-34) U/L Alkaline Phosphatase 69 (38-126) U/L Total Protein 7.6 (6.3-8.2) g/dL Albumin 4.8 (3.5-5.0) g/dL Current Medications Generic Name Dose Route Start Last Admin Trade Name Freq PRN Reason Stop Dose Admin Aspirin 81 mg 04/16/23 09:00 04/16/23 08:24 Aspirin 81 Mg PO Not Given DAILY MARICRUZ Heparin Sodium (Porcine) 5,000 unit 04/16/23 08:00 04/16/23 08:24 Heparin Sodium,Porcine 5,000 Unit/Ml 1 Ml Vial SQ 5,000 unit Q8HR MARICRUZ Administration Sodium Chloride 1,000 mls @ 75 mls/hr 04/16/23 03:00 04/16/23 04:20 Saline 0.9% IV 75 mls/hr .[id number] MARICRUZ Administration Metoprolol Succinate 50 mg 04/16/23 21:00 Metoprolol Succinate (Er) 50 Mg Tab.Er.24h PO HS MARICRUZ Naloxone HCl 0.2 mg 04/16/23 01:22 Naloxone 0.4 Mg/Ml 1 Ml Vial IV Q2M PRN Opioid Reversal Pantoprazole Sodium 40 mg 04/16/23 07:30 04/16/23 06:29 Pantoprazole 40 Mg Tablet PO 40 mg [id number] MARICRUZ Administration Intake and Output 04/15/23 04/16/23 04/16/23 22:59 06:59 14:59 Intake Total 540 Balance 540 Intake: Oral 540 Other: Weight 70.307 kg 70.307 kg 04/15/23 23:18 04/15/23 23:18
[2023-04-16 13:20] LABS: Chol/HDL Ratio 2.74 Ratio; VLDL Calculation 11.08 mg/dL (5.00-40.00)
--- NOTE | 2023-04-16 14:40 | P.PN ---
Subjective Progress Note Date: 04/16/23 Hospital course: Patient is a very pleasant 27-year-old female with a past medical history of prolonged QT syndrome status post AICD placement. Patient reports multiple episodes of defibrillator firing in the past secondary to recurrent episodes of prolonged QT. She presented to the emergency department overnight with a chief complaint of midsternal chest pain radiating into left arm accompanied by nausea and vomiting. She denied defibrillator going off this time and denied any other complaints. She underwent full evaluation in the emergency department. Labs completed and reviewed. CBC and BMP were unremarkable. Magnesium normal findings at 2.0. Liver profile showing elevated total bili of 1.5 and elevated AST of 49 and ALT of 44. Troponin was negative at less than 0.012. D-dimer also negative at less than 0.017. Urine hCG negative. Chest X-ray completed and was negative for acute cardiopulmonary process. EKG showing normal sinus rhythm at 89 bpm with prolonged QRS of 112 ms showing incomplete right bundle branch block with no significant T-wave or ST abnormalities showing no signs of acute ischemia upon personal review and interpretation. Patient was admitted under our services with consultation to cardiology. Troponins were trended overnight all negative at less than 0.0123 draws. Physical exam: Vital signs reviewed and stable. General: Nontoxic, no distress and appears stated age. Derm: Skin warm and dry, normal coloration for ethnicity. Head: Atraumatic, normocephalic and symmetric. Eyes: EOMs intact, no lid lag, and anicteric sclera Mouth: no lip lesions, mucus membranes moist Cardiovascular: regular rate and rhythm with normal S1S2, no murmur, positive posterior tibial pulses bilaterally, and cap refill < 2 seconds. Lungs: Respirations even, regular, and unlabored on room air. Lungs CTA bilaterally, no rhonchi, no rales, no wheezing, and no accessory muscle usage. Abdominal: soft, nontender to palpation, no guarding, no appreciable organomegaly Ext: ROM intact. No gross muscle atrophy, no edema, no contractures Neuro: Speech clear, face symmetrical and CN II-XII grossly intact with no noted focal neuro deficits Psych: Alert and oriented to person, place, time, and situation. Appropriate and pleasant affect. Assessment and Plan of Care: Chest pain, rule out acute coronary event History of prolonged QT syndrome status post AICD placement -Cardiology evaluated. Discussed plan of care, Cardiology clearing patient from cardiac perspective if AICD interrogation report is negative. -Continue Telemetry monitoring -Troponins were trended overnight and all negative at less than 0.013 draws. -Cardiac diet -Patient started on aspirin 81 mg daily and to Continue metoprolol succinate 50 mg nightly. -RN communication order placed to obtain He AICD device interrogation report. CODE STATUS: Full code DVT prophylaxis: Heparin Anticipated discharge date: Likely within the next [address]: Home Patient was seen independently by Nurse Pracitioner. This document was prepared using [employer] dictation software. Please allow for errors in device processing engineer, while rare they do occur. Jaun Stroud NP rendered care for this patient independently, reviewed the findings and plan as documented in the note above. I did not physically speak with or examine the patient on this date. Objective - Vital Signs Vital signs: Vital Signs Temp 98.0 F 04/16/23 02:14 Pulse 69 04/16/23 04:19 Resp 16 04/16/23 04:19 BP 103/63 04/16/23 04:19 Pulse Ox 97 04/16/23 04:19 FiO2 Intake & Output 04/15/23 04/16/23 04/16/23 18:59 06:59 18:59 Intake Total 540 Balance 540 Weight 70.307 kg Intake: Oral 540 - Labs CBC & Chem 7: 04/15/23 23:18 04/15/23 23:18 Labs: Abnormal Lab Results - Last 24 Hours (Table) 04/15/23 Range/Units 23:18 Total Bilirubin 1.5 H (0.2-1.3) mg/dL AST 49 H (14-36) U/L ALT 44 H (4-34) U/L
[2023-04-16] MEDS ORDERED: ACETAMINOPHEN TAB 325 MG TAB PO PRN (15:08)
--- NOTE | 2023-04-16 15:59 | P.DS ---
Providers Date of admission: 04/16/23 01:22 Expected date of discharge: 04/16/23 Attending physician: Nadeen Childress MD Consults: 04/16/23 01:22 Consult Physician Urgent Consulting Provider: [facility] Consult Reason/Comments: acute chest pain, hx prolong qt, hx cardiac arrest Do you want consulting provider notified?: Yes Primary care physician: Angel Becker Hospital Course: Discharge Diagnosis: Chest pain, acute coronary event ruled out. History of prolonged QT syndrome status post AICD placement. Hospital Course: Patient is a very pleasant 27-year-old female with a past medical history of prolonged QT syndrome status post AICD placement. Patient reports multiple ep isodes of defibrillator firing in the past secondary to recurrent episodes of prolonged QT. She presented to the emergency department overnight with a chief complaint of midsternal chest pain radiating into left arm accompanied by nausea and vomiting. She denied defibrillator going off this time and denied any other complaints. She underwent full evaluation in the emergency department. Labs co mpleted and reviewed. CBC and BMP were unremarkable. Magnesium normal findings at 2.0. Liver profile showing elevated total bili of 1.5 and elevated AST of 49 and ALT of 44. Troponin was negative at less than 0.012. D-dimer also negative at less than 0.017. Urine hCG negative. Chest X-ray completed and was negative for acute cardiopulmonary process. EKG showing normal sinus rhythm at 89 bpm with prolonged QRS of 112 ms showing incomplete right bundle branch block with no significant T-wave or ST abnormalities showing no signs of acute ischemia upon personal review and interpretation. Patient was admitted under our services with consultation to cardiology. Troponins were trended overnight all negative at less than 0.0123 draws. Patient stated that she remains free from chest pain since arrival to our facility, reports episode of chest pain lasting approximately 15 minutes. She was evaluated by cardiologyand they cleared patient from cardiac perspective pending AICD interrogation report being negative. AICD interrogation report was obtained from [employer]. Report stated device is functioning within normal limits with 1 nonsustained event dated 01/04/22 otherwise no recent events reported. Medically, patient is stable at this time and again remains free from any chest pain or discomfort. Patient medically stable for discharge, patient instructed she'll need to follow up outpatient with her PCP in 1-2 days and with her claim professional, Dr. Deal in 1 week. Physical exam: Vital signs reviewed and stable. General: Nontoxic, no distress and appears stated age. Derm: Skin warm and dry, normal coloration for ethnicity. Head: Atraumatic, normocephalic and symmetric. Eyes: EOMs intact, no lid lag, and anicteric sclera Mouth: no lip lesions, mucus membranes moist Cardiovascular: regular rate and rhythm with normal S1S2, no murmur, positive posterior tibial pulses bilaterally, and cap refill < 2 seconds. Lungs: Respirations even, regular, and unlabored on room air. Lungs CTA bilaterally, no rhonchi, no rales, no wheezing, and no accessory muscle usage. Abdominal: soft, nontender to palpation, no guarding, no appreciable organomegaly Ext: ROM intact. No gross muscle atrophy, no edema, no contractures Neuro: Speech clear, face symmetrical and CN II-XII grossly intact with no noted focal neuro deficits Psych: Alert and oriented to person, place, time, and situation. Appropriate and pleasant affect. A total of 33 minutes of time were spent preparing this complex discharge summary. Pt was discharged on 04/16/23 at 3:53 PM. Patient was seen independently by Nurse Practitioner. This document was prepared using [employer] dictation software. Please allow for errors in medicare biller while rare they do occur. Jaun Stroud NP rendered care for this patient independently, reviewed the findings and plan as documented in the note above. I did not physically speak with or examine the patient on this date. Patient Condition at Discharge: Stable Plan - Discharge Summary Discharge Rx Participant: Yes New Discharge Prescriptions: Continue Metoprolol Succinate (ER) [Toprol XL] 50 mg PO HS Discharge Medication List Metoprolol Succinate (ER) [Toprol XL] 50 mg PO HS 03/12/20 [History] Follow up Appointment(s)/Referral(s): Angel Becker MD [Primary Care Provider] - 1-2 days Navid Fritz MD [REFERRING] - 1 Week Patient Instructions/Handouts: Chest Pain (DC) Activity/Diet/Wound Care/Special Instructions: Activity: As tolerated. Take breaks as needed. Diet: Heart healthy and carb consistent diet. Avoid salts, or foods with hidden salts such as canned or boxed foods and frozen dinners. Extra salt makes your heart work harder and traps the fluid in your body for longer. Special Instructions: Take all of your medications as directed and remember to keep all of your doctor's appointments and follow-up as needed. Thank you for allowing us to participate in your care, it was truly a pleasure having you for our patient!!! Discharge/Stand Alone Forms: Work/School Release / Restrict Discharge Disposition: HOME SELF-CARE
[2023-04-16] MEDS ORDERED: METOPROLOL SUCCINATE (ER) 50 MG TAB.ER.24H PO SCH (21:00)
== END 2023-04-16 16:48 | disposition home or self-care (01) ==
LOC: EC 22:29 → 3SCARD 04-16 01:22
PROVIDERS: ADMIT Internal Medicine; ATTEND Internal Medicine
DX: R07.89 Other chest pain (principal); R94.31 Abnormal electrocardiogram [ECG] [EKG]; R74.8 Abnormal levels of other serum enzymes; Z86.74 Personal history of sudden cardiac arrest; Z95.810 Presence of automatic (implantable) cardiac defibrillator; Z79.899 Other long term (current) drug therapy
CPT/HCPCS: 96372; 99285; 36415; 93005; 85379; 80061; 80053; 83735; 84484 ×2; 85025; 85610; 85730; 81025; 71046; G0378; J1644